=== PATIENT | female | born 1940 | race Caucasian/White ===

== ENCOUNTER 2018-01-24 08:17 | Emergency (ER) | payer MEDICARE ==
[2016-12-07 11:24] VITALS: Wt 118.0 kg
[~2018-01-24 08:17] MED LIST: ACE500 PO; ADV250/50 INH; ALB0.5 INH; ALL300 PO; ALLO-2 PO; ALP5 PO; AMI10 PO; ANUHC30T PR; ASP81 PO; ASPI-1121 PO; ATE50 PO; ATEN-1 PO; ATOR40TA69 PO; BONIVA; BUDE10.2 INH; CANA300T PO; CEF300 PO; CELE-1 PO; CELE50CA2 PO; CEPH250C37 PO; CEPH500C24 PO; CHOL100052 PO; CIP500 PO; CLON-331 PO; CRAN1000 PO; DAR75 PO; DIG25 PO; DIGO125T25 PO; DIGO125T73 PO; DIPH-740 PO; EZE10 PO; FENO67CA3 PO; FLUT1DIS28 IH; FLUT50DI3 IH; FUR20 PO; FUR40 PO; FURO-45 PO; GAB800PT PO; GABA-1 PO; GABA-503 PO; GLIM4TAB49 PO; GUALA600 PO; HUM100VI15 SQ; HUM100VI2 SUBQ; HYDR-393 PO; HYDR-4305 PO; HYDR-4309 PO; INSU100C14 SQ; INSU100I35 SQ; INSU100I8; INSULIN; IPRA3AMP36 IH; LANI SUBQ; LEV500 PO; LEVO88TA45 PO; LISI-362 PO; LISI2.5T60 PO; LISI5TAB25 PO; LOR5/325 PO; LORA-1456 PO; MAGN84TA5 PO; MET500 PO; METF-1 PO; METF-409 PO; METH4TAB57 PO; METO-222 PO; METO-231 PO; METO-257 PO; METO100T20 PO; METXR500 PO; MON10 PO; MONT10TA4 PO; MOX400 PO; MULT-820 PO; NYST15CR32 TP; OMEG500C5 PO; OMEP-137 PO; OMEP-218 PO; OSC600 PO; OXYC-865 PO; OXYC20TA86 PO; PAR20 PO; PARO20TA4 PO; PARO40TA88 PO; PER PO; PHENA200 PO; POTA2.5T7 PO; POTA20PA10 PO; POTA20TA85 PO; POTA20TA94 PO; PRE20 PO; PRED20TA6 PO; PRIM50TA PO; Prednisone PO; QUIN40TA24 PO; RIV10 PO; ROSI1TAB24 PO; SALSP; SIM10 PO; SIMV-42 PO; TIO18R INH; TRILI135PT PO; WAR25 PO; WAR5 PO; WARF-1 PO; ZOLP-1 PO; [UNRECOGNIZED DRUG - CODE] PO; [UNRECOGNIZED DRUG - CODE] TP; [UNRECOGNIZED DRUG - REMARK] PO
[2018-01-24] MEDS ORDERED: ENT KIT ONE (08:43)
--- NOTE | 2018-01-24 08:47 | ER Report ---
History and Physical Time Seen By MD: 08:40 Hx. of Stated Complaint: PT REPORTS A BLOODY NOSE SINCE 0300 THIS MORNING HPI/ROS CHIEF COMPLAINT: Nosebleed HISTORY OF PRESENT ILLNESS: Patient is a 78-year-old female with oxygen- dependent COPD. She presents with bleeding from the right naris. She denies any history of trauma. She does wear oxygen continuously. She denies any headaches or chest pain. She states he's having difficulty breathing out of her right naris and feels as something stuck there. Allergies: Coded Allergies: pentazocine (Verified Allergy, Mild, NAUSEA/VOMITING, 01/24/18) Uncoded Allergies: STRAW LOU (Allergy, Severe, RESP PROBLEMS, 01/11/08) TAPE (Allergy, Mild, BLISTERS, 12/05/07) Home Meds Active Scripts Budesonide/Formoterol Fumarate (SYMBICORT 160-4.5 MCG INHALER) 10.2 Gm Inh, 2 EACH INH BIDR for 30 Days, #1 INH 1 Refill Two puffs two times a day. Prov:BALWINDER DIAMOND MD 12/09/16 Prednisone (PREDNISONE) 20 Mg Tablet, 20 MG PO BIDBS, #7 TAB 0 Refills One tab twice a day for 2 days then one tab a day for two days then one-half tab a day for two days then off. Prov:BALWINDER DIAMOND MD 12/09/16 Reported Medications Insulin Degludec (Tresiba Flextouch U-100) 100 Unit/Ml (3 Ml) Insuln.pen 12/06/16 Clonazepam (CLONAZEPAM) 0.5 Mg Tablet, 0.5 MG PO DAILY, #6 TAB 12/06/16 Primidone (PRIMIDONE) 50 Mg Tab, 100 MG PO BID, TAB 12/06/16 Rivaroxaban (XARELTO 10 MG TAB (OR EQUIV)) 10 Mg Tablet, 20 MG PO QDAY, TAB 12/06/16 Lisinopril (LISINOPRIL) 10 Mg Tablet, 10 MG PO QDAY, TAB 12/06/16 Canagliflozin (INVOKANA) 300 Mg Tablet, 150 MG PO DAILY 12/06/16 Atenolol (ATENOLOL) 50 Mg Tablet, 1 TAB PO QDAY, TAB 12/06/16 Digoxin (DIGOXIN) 125 Mcg Tablet, 125 MCG PO DAILY 07/04/14 Omeprazole (OMEPRAZOLE) 20 Mg Tablet.dr, 20 MG PO QDAY TAKE ONE TABLET BY MOUTH ONCE A DAY 07/03/14 Furosemide (FUROSEMIDE) 20 Mg Tablet, 1 TAB PO DAILY, #30 07/02/14 Paroxetine Hcl (PAROXETINE HCL) 40 Mg Tablet, 1 TAB PO DAILY, #30 07/02/14 Allopurinol (Allopurinol) 300 Mg Tablet, 1 TAB PO DAILY, #90 07/02/14 Atorvastatin Calcium (ATORVASTATIN CALCIUM) 40 Mg Tablet, 1 TAB PO DAILY, #90 07/02/14 Levothyroxine Sodium (LEVOTHYROXINE SODIUM) 88 Mcg Tablet, 1 TAB PO DAILY, #90 07/02/14 Past Medical/Surgical History Past medical history for hypertension, dyslipidemia on Lipitor, type II diabetes, COPD and smoking. She has a history of atrial fibrillation and is on Xarelto Hx Smoking: Yes Smoking Status: Former Smoker Exposure to Second Hand Smoke?: No Hx Substance Use Disorder: No Hx Alcohol Use: No Constitutional Vital Sign - Last 24 Hours 01/24/18 08:20 Pulse 110 Resp 18 B/P (MAP) 154/91 Pulse Ox 88 O2 Delivery Nasal Cannula Physical Exam General Appearance: The patient is alert, has no immediate need for airway protection and no current signs of toxicity. Nares: Clotted right naris left nares appears normal Eyes: Pupils equal and round no injection. Respiratory: Chest is non tender, lungs are noted for bilateral rhonchi and wheezing throughout Cardiac: Irregularly irregular rate controlled[ ] Medical Decision Making ED Course/Re-evaluation ED Course 01/24/2018 9:00:11 am plan at this time will be attempted patient blow her nose we will place a Juan A-Synephrine soaked pledget in the naris have her hold direct pressure for 15 minutes if there is an area that we can cauterize we will use silver nitrate stick. 01/24/2018 9:17:42 am : Area of slow ooze the right naris was cauterized using silver nitrate stick. Estrace and was placed topically to the right naris. Bleeding seems controlled. Decision to Disposition Date: Jan 24, 2018 Decision to Disposition Time: 09:21 Depart Departure Latest Vital Signs Vital Signs Date Time Temp Pulse Resp B/P (MAP) Pulse Ox O2 Delivery O2 Flow Rate FiO2 01/24/18 08:20 110 18 154/91 88 Nasal Cannula Impression: Primary Impression: Epistaxis Condition: Improved Disposition: HOME OR SELF-CARE Referrals: JUAN C CARRANZA MD (PCP) Patient Instructions: Nosebleed (ED) Additional Instructions: Use topical Vaseline or bacitracin to both nares twice per day while wearing her oxygen to keep mucosa moist and decrease likelihood of bleeding. If bleeding returns hold direct pressure for 15 minutes if the bleeding still does not stop come back to the emergency department for reevaluation. SANTIAGO SEGURA MD Jan 24, 2018 08:47
[2018-01-24] MEDS ORDERED: PHENYLEPHRINE 0.5% 15 ML BTL ONE (09:15)
[2018-01-24] MEDS ORDERED: SILVER NITRATE SWABS 10 PKG TP ONE (09:15)
[2018-01-24 09:29] VITALS: BP 146/98
== END 2018-01-24 09:28 | disposition home or self-care (01) ==
LOC: ER 08:27
DX: R04.0 Epistaxis (principal); Z99.81 Dependence on supplemental oxygen
CPT/HCPCS: 30901; 99283; A9270

== ENCOUNTER 2018-08-16 08:53 | Inpatient (IN) | payer MEDICARE ==
[~2018-08-16] VITALS: Ht 152.4 cm; Wt 122.6 kg
[~2018-08-16 08:53] MED LIST changes: -GABA-503 PO; +GABA-533 PO; -HYDR-4305 PO; -HYDR-4309 PO; +HYDR-627 PO; +HYDR-653 PO
[2018-08-16] MEDS ORDERED: NS(*) 0.9% 1000 ML BAG 1,000 ML IV ONE ×2 (09:45→12:00)
[2018-08-16 10:01] LABS: PLATELET COUNT, AUTOMATED 254 K/uL (150-450)
--- NOTE | 2018-08-16 10:08 | ER Report ---
History and Physical Time Seen By MD: 09:25 Hx. of Stated Complaint: AMS. HPI/ROS CHIEF COMPLAINT: Altered mental status, abdominal pain HISTORY OF PRESENT ILLNESS: 78-year-old female brought into ED by for change in mental status. When questioning patient, she reports that she is here because she has abdominal pain for 2 days. Patient states the pain is constant, throughout her abdomen, unclear what changes it, feels like pressure, associated with multiple episodes of diarrhea. She is nauseous but has not vomited. She complains of frontal headache and occasional blurred vision. She admits to hearing voices though cannot tell what they say. She denies visual hallucinations. Per , she has had intermittent episodes in the past of change in mental status. The last was 3 months ago. She had a workup but it was unclear what was causing this. She now has had 2 d of confusion, urinary and stool incontinence, change in color/odor of urine, no bloody/black stool, screaming at night, unaware of where she is, per . No change in medications, no change in diet/appetite. No known fevers REVIEW OF SYSTEMS: Constitutional: No fever, no chills. Eyes: blurred vision; unclear duration. No diplopia ENT: No sore throat. Cardiovascular: No chest pain, no palpitations. Respiratory: No cough, no shortness of breath. Gastrointestinal: above Genitourinary: above Musculoskeletal: chronic back pain Skin: No rashes. Neurological: mild frontal zabala over unclear time period; pt denies this now Remainder of the 14 system rev: Yes Allergies: Coded Allergies: pentazocine (Verified Allergy, Mild, NAUSEA/VOMITING, 08/16/18) Uncoded Allergies: STRAW LOU (Allergy, Severe, RESP PROBLEMS, 01/11/08) TAPE (Allergy, Mild, BLISTERS, 12/05/07) Home Meds Active Scripts Budesonide/Formoterol Fumarate (SYMBICORT 160-4.5 MCG INHALER) 10.2 Gm Inh, 2 EACH INH BIDR for 30 Days, #1 INH 1 Refill Two puffs two times a day. Prov:BALWINDER DIAMOND MD 12/09/16 Prednisone (PREDNISONE) 20 Mg Tablet, 20 MG PO BIDBS, #7 TAB 0 Refills One tab twice a day for 2 days then one tab a day for two days then one-half tab a day for two days then off. Prov:BALWINDER DIAMOND MD 12/09/16 Reported Medications Rivaroxaban 20 Mg (XARELTO 20 MG) 20 Mg Tablet 08/16/18 Fenofibrate,Micronized (FENOFIBRATE) 67 Mg Capsule 08/16/18 Gabapentin (GABAPENTIN) 600 Mg Tablet 08/16/18 Metoprolol Succinate (METOPROLOL SUCCINATE) 100 Mg Tab.er.24h 08/16/18 Insulin Glargine,Hum.rec.anlog (Toujeo Solostar) 300 Unit/1 Ml Insuln.pen 08/16/18 Insulin Degludec (Tresiba Flextouch U-100) 100 Unit/Ml (3 Ml) Insuln.pen 12/06/16 Clonazepam (CLONAZEPAM) 0.5 Mg Tablet, 0.5 MG PO DAILY, #6 TAB 12/06/16 Primidone (PRIMIDONE) 50 Mg Tab, 100 MG PO BID, TAB 12/06/16 Rivaroxaban (XARELTO 10 MG TAB (OR EQUIV)) 10 Mg Tablet, 20 MG PO QDAY, TAB 12/06/16 Lisinopril (LISINOPRIL) 10 Mg Tablet, 10 MG PO QDAY, TAB 12/06/16 Canagliflozin (INVOKANA) 300 Mg Tablet, 150 MG PO DAILY 12/06/16 Atenolol (ATENOLOL) 50 Mg Tablet, 1 TAB PO QDAY, TAB 12/06/16 Digoxin (DIGOXIN) 125 Mcg Tablet, 125 MCG PO DAILY 07/04/14 Omeprazole (OMEPRAZOLE) 20 Mg Tablet.dr, 20 MG PO QDAY TAKE ONE TABLET BY MOUTH ONCE A DAY 07/03/14 Furosemide (FUROSEMIDE) 20 Mg Tablet, 1 TAB PO DAILY, #30 07/02/14 Paroxetine Hcl (PAROXETINE HCL) 40 Mg Tablet, 1 TAB PO DAILY, #30 07/02/14 Allopurinol (Allopurinol) 300 Mg Tablet, 1 TAB PO DAILY, #90 07/02/14 Atorvastatin Calcium (ATORVASTATIN CALCIUM) 40 Mg Tablet, 1 TAB PO DAILY, #90 07/02/14 Levothyroxine Sodium (LEVOTHYROXINE SODIUM) 88 Mcg Tablet, 1 TAB PO DAILY, #90 07/02/14 Reviewed Nurses Notes: Yes Old Medical Records Reviewed: Yes Hx Smoking: Yes Smoking Status: Former Smoker Exposure to Second Hand Smoke?: No Hx Substance Use Disorder: No Hx Alcohol Use: No Constitutional Vital Sign - Last 24 Hours 08/16/18 08/16/18 08/16/18 08/16/18 09:00 09:00 10:00 10:15 Temp 97.9 Pulse 129 ??? 116 Resp 22 26 B/P (MAP) 141/96 ???/??? (1665) Pulse Ox 91 94 O2 Delivery Nasal Cannula O2 Flow Rate 3.0 08/16/18 08/16/18 08/16/18 08/16/18 10:30 10:33 10:45 11:00 Pulse 117 119 ??? Resp 21 99 17 B/P (MAP) 144/86 (105) ???/??? (1665) Pulse Ox 95 93 77 08/16/18 08/16/18 08/16/18 08/16/18 11:15 11:30 11:45 12:00 Pulse 111 115 135 108 Resp 17 31 40 22 B/P (MAP) ???/??? (1665) 08/16/18 08/16/18 08/16/18 08/16/18 12:15 12:30 12:45 13:00 Pulse 109 112 94 121 Resp 20 35 24 22 B/P (MAP) ???/??? (1665) 08/16/18 08/16/18 08/16/18 08/16/18 13:15 13:30 13:45 14:35 Pulse 114 96 103 95 Resp 12 11 18 13 08/16/18 08/16/18 08/16/18 08/16/18 14:50 15:05 15:20 15:35 Pulse 105 88 108 108 Resp 23 14 21 16 Physical Exam General Appearance: The patient is alert, has no immediate need for airway protection and no signs of toxicity. Eyes: Pupils equal and round no pallor or injection. ENT, Mouth: Mucous membranes are slightly dry Respiratory: There are no retractions, lungs are clear to auscultation. Cardiovascular: tachycardia, irreg rhythm Gastrointestinal: abdomen is tender throughout, decreased bowel sounds, no clear masses, no peritoneal sgs Neurological: awake, interactive, oriented to person/place, no facial droop, 5/5 ms all ext except r foot with 4/5 plantar flexion and medial deviation that states is complication of prior surgery Skin: Warm and dry, no rashes. Musculoskeletal: Neck is supple non tender. Pt does have thoracic ttp that is paraspinal and central, no massess or stepoff Extremities are nontender, nonswollen and have full range of motion. DIFFERENTIAL DIAGNOSIS: After history and physical exam differential diagnosis was considered for altered mental status including but not limited to hypoglycemia, infectious process, electrolyte abnormality, head injury and intoxicants. Sepsis, normal pressure hydrocephalus, delirium, encephalopathy other emergent etiology Medical Decision Making Data Points Result Diagram: 08/16/18 0914 08/17/18 0532 Laboratory Hematology Test 08/16/18 09:14 08/16/18 13:03 08/16/18 13:38 Red Blood Count 4.78 M/uL (4.17-5.56) Mean Corpuscular Volume 91.2 fL (80.0-96.0) Mean Corpuscular Hemoglobin 29.7 pg (26.0-33.0) Mean Corpuscular Hemoglobin Concent 32.6 g/dL (32.0-36.0) Red Cell Distribution Width 15.0 % (11.5-14.5) Mean Platelet Volume 8.5 fL (7.2-11.1) Neutrophils (%) (Auto) 81.7 % (39.4-72.5) Lymphocytes (%) (Auto) 9.3 % (17.6-49.6) Monocytes (%) (Auto) 7.9 % (4.1-12.4) Eosinophils (%) (Auto) 0.4 % (0.4-6.7) Basophils (%) (Auto) 0.7 % (0.3-1.4) Nucleated RBC Relative Count (auto) 0.2 /100WBC Neutrophils # (Auto) 7.4 K/uL (2.0-7.4) Lymphocytes # (Auto) 0.8 K/uL (1.3-3.6) Monocytes # (Auto) 0.7 K/uL (0.3-1.0) Eosinophils # (Auto) 0.0 K/uL (0.0-0.5) Basophils # (Auto) 0.1 K/uL (0.0-0.1) Nucleated RBC Absolute Count (auto) 0.02 K/uL Prothrombin Time 14.3 seconds (12.0-14.4) Prothromb Time International Ratio 1.11 Activated Partial Thromboplast Time 28 seconds (23-35) Lactate 1.7 mmol/L (0.7-2.1) Total Bilirubin 1.8 mg/dl (0.2-1.3) Aspartate Amino Transf (AST/SGOT) 38 U/L (0-35) Alanine Aminotransferase (ALT/SGPT) 27 U/L (0-56) Alkaline Phosphatase 73 U/L (0-126) Troponin I < 0.012 ng/ml Total Protein 7.3 g/dl (6.3-8.2) Albumin 4.1 g/dl (3.5-5.0) Lipase 41 U/L (23-300) Urine Color Yellow Urine Clarity Cloudy Urine pH 6.0 pH (4.8-9.5) Urine Specific [place] 1.020 Urine Protein 100 mg/dL (NEGATIVE) Urine Glucose (UA) Negative mg/dL (NEGATIVE) Urine Ketones Negative mg/dL (NEGATIVE) Urine Blood Small (NEGATIVE) Urine Nitrite Negative (NEGATIVE) Urine Bilirubin Negative (NEGATIVE) Urine Urobilinogen 0.2 mg/dL (0.2-1.9) Urine Leukocyte Esterase Negative (NEGATIVE) Urine RBC 1-3 /HPF (0-2/HPF) Urine WBC 2-5 /HPF (0-5/HPF) Urine Squamous Epithelial Cells Many /LPF (</=FEW) Urine Transitional Epithelial Cells Rare /LPF (NONE-FEW) Urine Renal Epithelial Cells Rare /LPF (NONE-FEW) Urine Bacteria Rare /HPF (NONE-FEW) Urine Hyaline Casts Few /LPF (NONE-FEW) Urine Granular Casts Few /LPF (NONE) Urine White Blood Cell Casts Few /LPF (NONE) Urine Mucus Rare /HPF (NONE-FEW) Digoxin Level < 0.4 ng/ml Digoxin Last Dose Date unk Digoxin Last Dose Time unk Chemistry Test 08/16/18 09:14 08/16/18 13:03 08/16/18 13:38 White Blood Count 9.0 k/uL (4.5-11.0) Red Blood Count 4.78 M/uL (4.17-5.56) Hemoglobin 14.2 g/dL (12.0-16.0) Hematocrit 43.6 % (34.0-47.0) Mean Corpuscular Volume 91.2 fL (80.0-96.0) Mean Corpuscular Hemoglobin 29.7 pg (26.0-33.0) Mean Corpuscular Hemoglobin Concent 32.6 g/dL (32.0-36.0) Red Cell Distribution Width 15.0 % (11.5-14.5) Platelet Count 254 K/uL (150-450) Mean Platelet Volume 8.5 fL (7.2-11.1) Neutrophils (%) (Auto) 81.7 % (39.4-72.5) Lymphocytes (%) (Auto) 9.3 % (17.6-49.6) Monocytes (%) (Auto) 7.9 % (4.1-12.4) Eosinophils (%) (Auto) 0.4 % (0.4-6.7) Basophils (%) (Auto) 0.7 % (0.3-1.4) Nucleated RBC Relative Count (auto) 0.2 /100WBC Neutrophils # (Auto) 7.4 K/uL (2.0-7.4) Lymphocytes # (Auto) 0.8 K/uL (1.3-3.6) Monocytes # (Auto) 0.7 K/uL (0.3-1.0) Eosinophils # (Auto) 0.0 K/uL (0.0-0.5) Basophils # (Auto) 0.1 K/uL (0.0-0.1) Nucleated RBC Absolute Count (auto) 0.02 K/uL Prothrombin Time 14.3 seconds (12.0-14.4) Prothromb Time International Ratio 1.11 Activated Partial Thromboplast Time 28 seconds (23-35) Lactate 1.7 mmol/L (0.7-2.1) Total Bilirubin 1.8 mg/dl (0.2-1.3) Aspartate Amino Transf (AST/SGOT) 38 U/L (0-35) Alanine Aminotransferase (ALT/SGPT) 27 U/L (0-56) Alkaline Phosphatase 73 U/L (0-126) Troponin I < 0.012 ng/ml Total Protein 7.3 g/dl (6.3-8.2) Albumin 4.1 g/dl (3.5-5.0) Lipase 41 U/L (23-300) Urine Color Yellow Urine Clarity Cloudy Urine pH 6.0 pH (4.8-9.5) Urine Specific [place] 1.020 Urine Protein 100 mg/dL (NEGATIVE) Urine Glucose (UA) Negative mg/dL (NEGATIVE) Urine Ketones Negative mg/dL (NEGATIVE) Urine Blood Small (NEGATIVE) Urine Nitrite Negative (NEGATIVE) Urine Bilirubin Negative (NEGATIVE) Urine Urobilinogen 0.2 mg/dL (0.2-1.9) Urine Leukocyte Esterase Negative (NEGATIVE) Urine RBC 1-3 /HPF (0-2/HPF) Urine WBC 2-5 /HPF (0-5/HPF) Urine Squamous Epithelial Cells Many /LPF (</=FEW) Urine Transitional Epithelial Cells Rare /LPF (NONE-FEW) Urine Renal Epithelial Cells Rare /LPF (NONE-FEW) Urine Bacteria Rare /HPF (NONE-FEW) Urine Hyaline Casts Few /LPF (NONE-FEW) Urine Granular Casts Few /LPF (NONE) Urine White Blood Cell Casts Few /LPF (NONE) Urine Mucus Rare /HPF (NONE-FEW) Digoxin Level < 0.4 ng/ml Digoxin Last Dose Date unk Digoxin Last Dose Time unk Coagulation Test 08/16/18 09:14 Prothrombin Time 14.3 seconds Prothromb Time International Ratio 1.11 Activated Partial Thromboplast Time 28 seconds Toxicology Test 08/16/18 13:38 Digoxin Level < 0.4 ng/ml Digoxin Last Dose Date unk Digoxin Last Dose Time unk Urinalysis Test 08/16/18 13:03 Urine Color Yellow Urine Clarity Cloudy Urine pH 6.0 pH (4.8-9.5) Urine Specific [place] 1.020 Urine Protein 100 mg/dL (NEGATIVE) Urine Glucose (UA) Negative mg/dL (NEGATIVE) Urine Ketones Negative mg/dL (NEGATIVE) Urine Blood Small (NEGATIVE) Urine Nitrite Negative (NEGATIVE) Urine Bilirubin Negative (NEGATIVE) Urine Urobilinogen 0.2 mg/dL (0.2-1.9) Urine Leukocyte Esterase Negative (NEGATIVE) Urine RBC 1-3 /HPF (0-2/HPF) Urine WBC 2-5 /HPF (0-5/HPF) Urine Squamous Epithelial Cells Many /LPF (</=FEW) Urine Transitional Epithelial Cells Rare /LPF (NONE-FEW) Urine Renal Epithelial Cells Rare /LPF (NONE-FEW) Urine Bacteria Rare /HPF (NONE-FEW) Urine Hyaline Casts Few /LPF (NONE-FEW) Urine Granular Casts Few /LPF (NONE) Urine White Blood Cell Casts Few /LPF (NONE) Urine Mucus Rare /HPF (NONE-FEW) EKG/Imaging EKG Interpretation 12 lead EKG: Rhythm: atrial fibrillation [place]: normal QRS: normal ST segments: st depresion throughout afib with RVR Monitor Interpretation: Atrial Fibrillation ED Course/Re-evaluation ED Course 78-year-old female presents with complaint of abdominal pain and according to , with altered mental status recently. Given A. fib and somewhat vague abdominal pain, I considered mesenteric ischemia or other emergent etiology. Will obtain electrolytes and lactate to evaluate for mesenteric ischemia as well as urine to rule out UTI. ED evaluation unremarkable for acute findings; no sgs ich, apparent infection. No fever. Pt reportedly allergic to contrast so unenhanced abd ct ordered and unremarkable. Unclear etiolgoy but pt with continued delerium in ED. I discussed inpt mri and further evaluation. Afebrile, without infectious symptoms so considered but low likelihood of infectious encephalitis. Decision to Disposition Date: Aug 16, 2018 Decision to Disposition Time: 11:30 Depart Departure Latest Vital Signs Vital Signs Date Time Temp Pulse Resp B/P (MAP) Pulse Ox O2 Delivery O2 Flow Rate FiO2 08/16/18 15:35 108 16 08/16/18 12:30 ???/??? (1665) 08/16/18 11:00 77 08/16/18 09:00 97.9 Nasal Cannula 08/16/18 09:00 3.0 Impression: Primary Impression: Acute delirium Condition: Stable Disposition: Admitted from ER Referrals: JUAN C CARRANZA MD (PCP) SANTIAGO COBB MD Aug 16, 2018 10:08
[2018-08-16 10:14] LABS: INR 1.11
[2018-08-16] MEDS ORDERED: MAGNESIUM SUL* 2 GM/50 ML IVPB 50 ML IVPB ONE ×2 (10:35→19:25)
--- NOTE | 2018-08-16 10:50 | RADIOLOGY IMAGING REPORT ---
FACILITY: [facility] PATIENT NAME: Flower Burk : 1940 MR: [id number] V: [id number] EXAM DATE: ORDERING PHYSICIAN: SANTIAGO COBB [place]CHN[place] [facility] [place] : 1940 Visit/Account:[id number] Date of Sevice: 08/16/2018 CHEST SINGLE AP HISTORY: Altered mental status. Tachypnea. COMPARISON: Chest x-ray December 06, 2016. FINDINGS: Cardiomediastinal contours: The heart is enlarged. Lungs and pleura: There is no finding of an infiltrate, lymphadenopathy or pleural effusion. There is chronic engorgement of the pulmonary vessels. Bones/soft tissues: Status post anterior cervical fusion. Status post ORIF of a left humeral shaft fr acture. IMPRESSION: 1. Cardiomegaly with chronic engorgement of the pulmonary vessels but no infiltrate or edema. 2. Postoperative changes as described above. Report Dictated By: Kee Torres MD at 08/16/2018 10:45 AM Report E-Signed By: Kee Torres MD at 08/16/2018 10:46 AM WSN:[id number]
--- NOTE | 2018-08-16 10:52 | RADIOLOGY IMAGING REPORT ---
FACILITY: [facility] PATIENT NAME: Flower Burk : 1940 MR: [id number] V: [id number] EXAM DATE: ORDERING PHYSICIAN: SANTIAGO COBB TECHNOLOGIST: Location: [facility] Patient: Flower Burk : 1940 Visit/Account:[id number] Date of Sevice: 08/16/2018 EXAMINATION: CT Head Without Contrast 08/16/2018 9:45 AM HISTORY: altered mental status TECHNIQUE: Contiguous axial images were obtained from the skull base to the vertex without intraven ous contrast. One of the following dose optimization techniques was utilized in the performance of this exam: Autom ated exposure control; adjustment of the mA and/or kV according to the patient's size; or use of an i terative reconstruction technique. Specific details can be referenced in the facility's radiology C T exam operational policy. COMPARISON STUDIES: 03/05/2017 FINDINGS: Ventricles / sulci / fissures: Enlarged but within normal limits for age. Masses / hemorrhage / midline shift: negative White matter: Moderate number of white matter lucencies, non-specific and age appropriate. Chung-white differentiation: negative Extra-axial spaces: negative Dural venous sinuses / arterial structures: Intracranial atherosclerosis. Skull base / calvarium: Incidental hyperostosis frontalis interna. Previous bilateral cataract surger y. Visualized mastoid air cells / paranasal sinuses: Rightward deviation of the nasal septum. IMPRESSION: Unremarkable head CT for age. No evidence of mass, acute ischemia or hemorrhage. Report Dictated By: Alex Tipton MD at 08/16/2018 10:45 AM Report E-Signed By: Alex Tipton MD at 08/16/2018 10:49 AM WSN:[id number]
--- NOTE | 2018-08-16 11:52 | EKG ---
FACILITY: [facility] PATIENT NAME: CIELO OLIVA : [id number] MR: [id number] V: [id number] EXAM DATE: ORDERING PHYSICIAN: SANTIAGO COBB TECHNOLOGIST: RICARDO Test Reason : STOMACH PAIN Blood Pressure : / mmHG Vent. Rate : 123 BPM Atrial Rate : 127 BPM P-R Int : 000 ms QRS Dur : 076 ms QT Int : 344 ms P-R-T Axes : 000 053 012 degrees QTc Int : 492 ms Atrial fibrillation Nonspecific ST abnormality Abnormal ECG When compared with ECG of 06-DEC-2016 14:59, Vent. rate has increased BY 49 BPM Confirmed by Mj Castro ([id number]) on 08/17/2018 12:19:59 AM Referred By: REZA Confirmed By:Mj Barfield
[2018-08-16] MEDS ORDERED: IOPAMIDOL 76% 100 ML INFUS BTL 0 ML ONE (13:23)
--- NOTE | 2018-08-16 14:54 | RADIOLOGY IMAGING REPORT ---
FACILITY: [facility] [place] PATIENT NAME: Flower Burk : 1940 MR: [id number] V: [id number] EXAM DATE: ORDERING PHYSICIAN: SANTIAGO COBB TECHNOLOGIST: Location: [facility] Patient: Flower Burk : 1940 Visit/Account:[id number] Date of Sevice: 08/16/2018 CT abdomen and pelvis without contrast Indication: Abdominal pain. Comparison: 03/21/2015. Technique: Axial CT images are obtained through the abdomen and pelvis. Reformatted coronal and sagit luis m images were reviewed. IV contrast was not administered. One of the following dose optimization techniques was utilized in the performance of this exam: auto mated exposure control; adjustment of the mA and/or kV according to the patient's size; or use of an iterative reconstruction technique. Specific details can be referenced in the facility's radiology C T exam operational policy. Findings: Lower lung morrow: Limited views lower lung field are unremarkable. Evaluation of the solid organs of the abdomen is limited without IV contrast. Liver: No focal parenchymal abnormality of the liver. Biliary: Status post cholecystectomy. Biliary system is unremarkable. Pancreas: No focal abnormality. Spleen: Normal appearance. Adrenal glands: Right adrenal gland is normal. The left adrenal glands are not well visualized. The re are some surgical clips in this region unsure if this is due to resection. Medial aspect of the s pleen does show a 1.3 cm nodule measuring may represent a small splenule. Kidneys / retroperitoneum: No evidence of nephrolithiasis or hydronephrosis. The left kidney does sh ow a 3.5 cm cyst. The superior aspect of the right kidney does show a 2.9 cm cyst with peripheral be nign calcification. No other discrete focal lesions. Bowel / peritoneum / mesenteries: Diverticula seen along the sigmoid and descending colon without per icolonic inflammation. The colon shows no other focal abnormality is mainly decompressed. The appen ozzie not visualized. The small bowel shows no focal normality or obstruction. The second portion duo denum does show again show a 1.6 cm diverticulum without sequelae. The stomach is decompressed and g rossly normal. No free air, free fluid, fluid collections or areas of inflammation. Lymph node assessment: No pathologic adenopathy identified. Pelvic structures: The uterus is not visualized may been surgically removed. The remaining pelvic structures visualized within normal limits. Vessels: Mild atherosclerotic calcifications seen throughout a nonaneurysmal abdominal aorta and bran ches. Musculoskeletal / Body wall: No acute or aggressive osseous abnormality. Degenerative changes of the spine. Postsurgical changes from the L3-L5 levels without acute sequelae. There is anterior spondy lolisthesis of L4 over L5 of 7 mm. The anterior abdominal wall in the subcutis tissues do show a soft tissue density measuring 4.8 x 2.3 cm with a linear extension to the skin surface. No discrete fluid collections or spiculations. The previous images were unable to be visualized. Unsure if this is chronic however does show more motor setter kelechi appearance. IMPRESSION: 1. No acute intra-abdominal abnormality identified. 2. Diverticulosis without radiographic indication diverticulitis. 3. Along the anterior abdominal subcutaneous fat, along the anterior abdominal wall there is a soft tissue density with extension linear two the substance tissues and skin. This is likely a residual s car or complex seroma from previous intervention. No discrete fluid collection or abscess. This aguirre s have a more chronic appearance however the age is not determined. The previous images were unable to be visualized for comparison. 4. Other chronic findings as above. Report Dictated By: Zaheer Sharma at 08/16/2018 2:34 PM Report E-Signed By: Zaheer Sharma at 08/16/2018 2:51 PM WSN:[email or web address]
[2018-08-16 17:09] VITALS: BP 168/100
[2018-08-16] MEDS ORDERED: KCL/NS* 20 MEQ/1000 ML PREMIX 1,000 ML IV SCH (19:25)
[2018-08-16 19:30] VITALS: BP 132/93
[2018-08-16] MEDS ORDERED: FLUSH 10 ML SYR IVP PRN (19:35)
[2018-08-16] MEDS ORDERED: ACETAMINOPHEN 325 MG TAB PO PRN (19:35)
[2018-08-16] MEDS ORDERED: RIVA20TA (19:40)
[2018-08-16] MEDS ORDERED: GABA-533 (19:40)
[2018-08-16] MEDS ORDERED: FENO67CA3 (19:40)
[2018-08-16] MEDS ORDERED: INSU300I (19:40)
[2018-08-16] MEDS ORDERED: METO100T20 (19:40)
[2018-08-16] MEDS: METOPROLOL TART 5 MG/5 ML VIAL IVP PRN ×2 (19:54→22:01)
[2018-08-16 21:48] VITALS: BP 160/108
[2018-08-16] MEDS: MELATONIN 3 MG TAB PO SCH (22:22)
--- NOTE | 2018-08-16 22:52 | History & Physical ---
History of Present Illness Chief Complaint AMS History of Present Illness 78F presented with AMS. PMHx significant for DM, HTN, afib. Reportedly had 2 days increased confusion, urinary and fecal incontinence, screaming at night, unaware of location. reports previous episodes of change in mental status with no identified cause. Denied any medication changes. Patient reported abdominal pain and diarrhea but is otherwise without complaint. History Unable To Obtain Past Medical: Unable to Obtain/Update Home Meds Active Scripts Budesonide/Formoterol Fumarate (SYMBICORT 160-4.5 MCG INHALER) 10.2 Gm Inh, 2 EACH INH BIDR for 30 Days, #1 INH 1 Refill Two puffs two times a day. Prov:BALWINDER DIAMOND MD 12/09/16 Prednisone (PREDNISONE) 20 Mg Tablet, 20 MG PO BIDBS, #7 TAB 0 Refills One tab twice a day for 2 days then one tab a day for two days then one-half tab a day for two days then off. Prov:BALWINDER DIAMOND MD 12/09/16 Reported Medications Rivaroxaban 20 Mg (XARELTO 20 MG) 20 Mg Tablet 08/16/18 Fenofibrate,Micronized (FENOFIBRATE) 67 Mg Capsule 08/16/18 Gabapentin (GABAPENTIN) 600 Mg Tablet 08/16/18 Metoprolol Succinate (METOPROLOL SUCCINATE) 100 Mg Tab.er.24h 08/16/18 Insulin Glargine,Hum.rec.anlog (Nichole Solbambi) 300 Unit/1 Ml Insuln.pen 08/16/18 Insulin Degludec (Tresiba Flextouch U-100) 100 Unit/Ml (3 Ml) Insuln.pen 12/06/16 Clonazepam (CLONAZEPAM) 0.5 Mg Tablet, 0.5 MG PO DAILY, #6 TAB 12/06/16 Primidone (PRIMIDONE) 50 Mg Tab, 100 MG PO BID, TAB 12/06/16 Rivaroxaban (XARELTO 10 MG TAB (OR EQUIV)) 10 Mg Tablet, 20 MG PO QDAY, TAB 12/06/16 Lisinopril (LISINOPRIL) 10 Mg Tablet, 10 MG PO QDAY, TAB 12/06/16 Canagliflozin (INVOKANA) 300 Mg Tablet, 150 MG PO DAILY 12/06/16 Atenolol (ATENOLOL) 50 Mg Tablet, 1 TAB PO QDAY, TAB 12/06/16 Digoxin (DIGOXIN) 125 Mcg Tablet, 125 MCG PO DAILY 07/04/14 Omeprazole (OMEPRAZOLE) 20 Mg Tablet.dr, 20 MG PO QDAY TAKE ONE TABLET BY MOUTH ONCE A DAY 07/03/14 Furosemide (FUROSEMIDE) 20 Mg Tablet, 1 TAB PO DAILY, #30 07/02/14 Paroxetine Hcl (PAROXETINE HCL) 40 Mg Tablet, 1 TAB PO DAILY, #30 07/02/14 Allopurinol (Allopurinol) 300 Mg Tablet, 1 TAB PO DAILY, #90 07/02/14 Atorvastatin Calcium (ATORVASTATIN CALCIUM) 40 Mg Tablet, 1 TAB PO DAILY, #90 07/02/14 Levothyroxine Sodium (LEVOTHYROXINE SODIUM) 88 Mcg Tablet, 1 TAB PO DAILY, #90 07/02/14 Allergies: Coded Allergies: pentazocine (Verified Allergy, Mild, NAUSEA/VOMITING, 08/16/18) Uncoded Allergies: STRAW LOU (Allergy, Severe, RESP PROBLEMS, 01/11/08) TAPE (Allergy, Mild, BLISTERS, 12/05/07) 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, BROTHER OR SISTER, FH: hepatic cirrhosis Hx Smoking: Yes Smoking Status: Former Smoker Exposure to Second Hand Smoke?: No Caffeine Intake: Soda Caffeine/Cups Per Day: 1/day Hx Alcohol Use: No Hx Substance Use Disorder: No Social Drug Use: Never Review of Systems Gastrointestinal: Diarrhea Exam Vital Signs Vital Signs Date Time Temp Pulse Resp B/P (MAP) Pulse Ox O2 Delivery O2 Flow Rate FiO2 08/16/18 21:48 98.5 107 22 160/108 (125) 90 Nasal Cannula 4.0 General Appearance: No Acute Distress, Afebrile Neuro: No Gross deficits ENT: Normal Cardiovascular: Other (irregularly irregular) Respiratory: No Respiratory Distress GI: Abd Soft and Non-Tender Extremities: Soft and Non Tender, Warm, Pulses, Perfused Medical Decision Making Data Points Result Diagram: 08/16/1891308/16/182137 Assessment and Plan Problems: (1) Encephalopathy Assessment & Plan: Unclear etiology, labs do not demonstrate cause. CT head negative for acute pathology. Consider MRI if AMS persists. Will obtain up to date medication list to evaluate for possible offending medications. (2) Diabetes mellitus Status: Chronic Assessment & Plan: Possibly on insulin and other medications. Glucose did decrease and required intervention to increase to safe level. Suspect she took medications but did not eat due to AMS. (3) Atrial fibrillation Status: Chronic Assessment & Plan: No current medication list, she did have elevated heart rate. Suspect she is on medication but with AMS did not take medication for rate control. (4) Hypothyroid Status: Chronic Assessment & Plan: Will need updated medication list when able to acquire. Venous Thromboembolism Antithrombotics Is Pt On Any Antithrombotics?: Yes Exam Sepsis Risk: No Definite Risk DEL CASTILLO OMID ERAZO DO Aug 16, 2018 22:52
[2018-08-16 23:08] VITALS: BP 124/90
[2018-08-16] MEDS ORDERED: KCL/D1/2NS 20 MEQ 1000 ML 1,000 ML IV PRN (23:50)
[2018-08-17 02:49] VITALS: BP 162/100
[2018-08-17 07:30] VITALS: BP 159/98
[2018-08-17] MEDS ORDERED: ENOXAPARIN 40 MG/0.4ML SYR SC SCH (09:00)
[2018-08-17] MEDS ORDERED: KCL/D1/2NS 20 MEQ 1000 ML 1,000 ML IV PRN (09:43)
[2018-08-17 10:06] VITALS: Ht 152.4 cm; Wt 122.6 kg
[2018-08-17 11:53] VITALS: BP 170/111
[2018-08-17 12:08] VITALS: BP 152/98
--- NOTE | 2018-08-17 13:06 | Hospitalist Progress Note ---
Subjective Progress Notes Subjective She is awake and alert. She does report some possible visual hallucinations - "bugs up on the ceiling". Physical Exam Vital Signs Date Time Temp Pulse Resp B/P (MAP) Pulse Ox O2 Delivery O2 Flow Rate FiO2 08/17/18 12:08 98 152/98 (116) 08/17/18 11:53 98.2 18 94 High-Flow Nasal Cannula 4.0 Intake and Output 08/17/18 07:00 Intake Total 3810 ml Balance 3810 ml Intake Oral 860 ml IV Total 2950 ml # Voids 2 # Bowel Movements 3 General Appearance: Alert, Awake Neuro: No Gross deficits Eyes: PERRLA ENT: Oropharynx Clear, Other (Poor dentition with only a few remaining teeth in very poor repair) Cardiovascular: Other (Irregular distant tones) Respiratory: Clear to Auscultation GI: Soft and Non-Tender (obese) Extremities: Warm, Perfused Psych: Other (She is oriented to person, place and partially to time.) Result Diagram: 08/16/18 0914 08/17/18 0532 Monitor Interpretation: Atrial Fibrillation Assessment and Plan Problems: (1) Encephalopathy Status: Acute Assessment & Plan: Probable opioid medication related. Labs unremarkable. CT head negative for acute pathology. Consider MRI if any problems persist. She did receive prescription for Lortab 10325 #150 tabs shortly before symptoms started. She has improved significantly since admission. (2) Diabetes mellitus Status: Chronic Assessment & Plan: She has been managed on insulin and Invokana. She has had some hypoglycemia, which may have been part of the acute mental status changes. Will monitor glucoses and use SSI if needed. (3) Atrial fibrillation Status: Chronic Assessment & Plan: She is on atenolol and digoxin for rate control and Xarelto for CVA prophylaxis. Will continue with same for now. (4) Hypothyroid Status: Chronic Assessment & Plan: Continue replacement therapy with L-thyroxine 88mcg daily. Exam Sepsis Risk: No Definite Risk BALWINDER DIAMOND MD Aug 17, 2018 13:06
[2018-08-17] MEDS ORDERED: METOPROLOL SUCC XL 50 MG TABCR 50 MG TAB.ER.24H PO ONE (13:10)
[2018-08-17] MEDS ORDERED: ATENOLOL 50 MG TAB PO ONE (13:10)
[2018-08-17] MEDS ORDERED: INSULIN HUM LISPRO 100 UN/ML 3 ML VIAL SUBQ PRN (13:15)
[2018-08-17 14:57] VITALS: BP 150/95
[2018-08-17] MEDS: GABAPENTIN 300 MG CAP PO SCH ×2 (15:01→20:33)
[2018-08-17 19:17] VITALS: BP 148/89
[2018-08-17] MEDS: MELATONIN 3 MG TAB PO SCH (20:33)
[2018-08-17] MEDS ORDERED: ATORVASTATIN 40 MG TAB PO SCH (21:00)
[2018-08-18 00:30] VITALS: BP 122/81
[2018-08-18 04:52] VITALS: BP 125/75
[2018-08-18] MEDS ORDERED: LEVOTHYROXINE SOD 0.088 MG TAB PO SCH (06:00)
[2018-08-18 06:21] LABS: PLATELET COUNT, AUTOMATED 197 K/uL (150-450)
[2018-08-18 07:19] VITALS: BP 147/90
[2018-08-18] MEDS ORDERED: RIVAROXABAN 10 MG TAB PO SCH (09:00)
[2018-08-18] MEDS ORDERED: ATENOLOL 50 MG TAB PO SCH (09:00)
[2018-08-18] MEDS ORDERED: METOPROLOL SUCC XL 50 MG TABCR 50 MG TAB.ER.24H PO SCH (09:00)
[2018-08-18] MEDS ORDERED: DIGOXIN 0.125 MG TAB PO SCH (09:00)
[2018-08-18] MEDS: GABAPENTIN 300 MG CAP PO SCH ×2 (10:27→14:00)
--- NOTE | 2018-08-18 13:15 | Hospitalist Depart ---
Discharge Summary Reason for Hosp/Final Diag: (1) Encephalopathy Status: Acute Hospital Course & Plan: Probable opioid medication related. Labs unremarkable. CT head negative for acute pathology. She did receive prescription for Lortab #150 tabs shortly before symptoms started. She has improved significantly since admission. Recommend weaning of opioid. She did have some confusion overnight likely due to delirium, resolved and at baseline. (2) Diabetes mellitus Status: Chronic Hospital Course & Plan: She has been managed on insulin and Invokana. She has had some hypoglycemia, which may have been part of the acute mental status changes. Invokana stopped and only basal insulin recommended until follow up with PCP. (3) Atrial fibrillation Status: Chronic Hospital Course & Plan: She is on metoprolol and digoxin for rate control and Xarelto for CVA prophylaxis. (4) Hypothyroid Status: Chronic Hospital Course & Plan: Continue replacement therapy with L-thyroxine 88mcg daily. Departure Weight (Pounds): 270 Weight (Ounces): 4.0 Result Diagram: 08/18/1853 08/18/18552 Condition: Improved Discharge Instructions Home Meds Active Scripts Budesonide/Formoterol Fumarate (SYMBICORT 160-4.5 MCG INHALER) 10.2 Gm Inh, 2 EACH INH BIDR for 30 Days, #1 INH 1 Refill Two puffs two times a day. Prov:BALWINDER DIAMOND MD 12/09/16 Reported Medications Rivaroxaban 20 Mg (XARELTO 20 MG) 20 Mg Tablet 08/16/18 Fenofibrate,Micronized (FENOFIBRATE) 67 Mg Capsule 08/16/18 Gabapentin (GABAPENTIN) 600 Mg Tablet 08/16/18 Metoprolol Succinate (METOPROLOL SUCCINATE) 100 Mg Tab.er.24h 08/16/18 Insulin Degludec (Tresiba Flextouch U-100) 100 Unit/Ml (3 Ml) Insuln.pen 12/06/16 Canagliflozin (INVOKANA) 300 Mg Tablet, 150 MG PO DAILY 12/06/16 Digoxin (DIGOXIN) 125 Mcg Tablet, 125 MCG PO DAILY 07/04/14 Omeprazole (OMEPRAZOLE) 20 Mg Tablet.dr, 20 MG PO QDAY TAKE ONE TABLET BY MOUTH ONCE A DAY 07/03/14 Paroxetine Hcl (PAROXETINE HCL) 40 Mg Tablet, 1 TAB PO DAILY, #30 07/02/14 Atorvastatin Calcium (ATORVASTATIN CALCIUM) 40 Mg Tablet, 1 TAB PO DAILY, #90 07/02/14 Levothyroxine Sodium (LEVOTHYROXINE SODIUM) 88 Mcg Tablet, 1 TAB PO DAILY, #90 07/02/14 Discontinued Reported Medications Insulin Glargine,Hum.rec.anlog (Nichole Penaostar) 300 Unit/1 Ml Insuln.pen 08/16/18 Clonazepam (CLONAZEPAM) 0.5 Mg Tablet, 0.5 MG PO DAILY, #6 TAB 12/06/16 Primidone (PRIMIDONE) 50 Mg Tab, 100 MG PO BID, TAB 12/06/16 Rivaroxaban (XARELTO 10 MG TAB (OR EQUIV)) 10 Mg Tablet, 20 MG PO QDAY, TAB 12/06/16 Lisinopril (LISINOPRIL) 10 Mg Tablet, 10 MG PO QDAY, TAB 12/06/16 Atenolol (ATENOLOL) 50 Mg Tablet, 1 TAB PO QDAY, TAB 12/06/16 Furosemide (FUROSEMIDE) 20 Mg Tablet, 1 TAB PO DAILY, #30 07/02/14 Allopurinol (Allopurinol) 300 Mg Tablet, 1 TAB PO DAILY, #90 07/02/14 Discontinued Scripts Prednisone (PREDNISONE) 20 Mg Tablet, 20 MG PO BIDBS, #7 TAB 0 Refills One tab twice a day for 2 days then one tab a day for two days then one-half tab a day for two days then off. Prov:BALWINDER DIAMOND MD 12/09/16 Diet: Diabetic Activity: As Tolerated Special Instructions: Strongly recommend weaning and cessation of opioid pain medications. Please follow up with your primary care to reconcile medications. Copies to: JUAN C CARRANZA MD ; Venous Thromboembolism Antithrombotics Is Pt On Any Antithrombotics?: Yes OMID THRASHER DO Aug 18, 2018 13:15
[2018-08-19] MEDS ORDERED: INFLUENZA VIRUS VAC 0.5ML SYR IM ONLY ONE (09:00)
== END 2018-08-18 14:15 | disposition home or self-care (01) | DRG 93 ==
LOC: ER 09:38 → MED 15:40
PROVIDERS: ADMIT Internal Medicine; ATTEND Internal Medicine
DX: G92 Toxic encephalopathy (principal); I48.2 Chronic atrial fibrillation; E11.649 Type 2 diabetes mellitus with hypoglycemia without coma; T40.2X5A Adverse effect of other opioids, initial encounter; Z79.4 Long term (current) use of insulin; E03.9 Hypothyroidism, unspecified
CPT/HCPCS: 36415; 36416; 70450; 71045; 74176; 80162; 81001; 82040; 82247; 82310; 82374; 82435; 82565; 82947; 82948; 83605; 83690; 83735; 84075; 84132; 84155; 84295; 84450; 84460; 84484; 84520; 85025; 85610; 85730; 87324; 87449; 93005; 96361; 96365; 99285; A4353; J1650; J3475; J3480; J7030; Q9967

== ENCOUNTER 2018-08-20 12:28 | Emergency (ER) | payer MEDICARE ==
[2018-08-17 10:06] VITALS: Wt 108.9 kg
[~2018-08-20 12:28] MED LIST changes: +FENO67CA3; +GABA-533; +INSU300I; +METO100T20; +RIVA20TA
--- NOTE | 2018-08-20 12:38 | ER Report ---
History and Physical Time Seen By MD: 12:36 HPI/ROS CHIEF COMPLAINT: Abdominal pain HISTORY OF PRESENT ILLNESS: Patient is a 78-year-old female who was recently admitted on August 16 initially seen in the ER for acute abdominal pain but was found to be confused. Patient was admitted to the hospital at that time and discharged on August 18. CT scan of the abdomen and pelvis along with blood work failed to yield any source for the patient's abdominal pain. The confusion was felt to be secondary to opiate narcosis. Patient had recently been prescribed 10 mg hydrocodone tablets #150 prior to evaluation on the . As narcotics were withdrawn in the hospital stay the patient's sensorium reported to clear. She states that she still having abdominal pain and multiple episodes of watery stools for the last few days. She denies any fevers or chills. Her sensorium has improved since decreasing her narcotic medication. She denies any fevers or chills. She denies chest pain or shortness of breath. No recent history of antibiotic use or travel. REVIEW OF SYSTEMS: Constitutional: No fever, no chills. Eyes: No discharge. ENT: No sore throat. Cardiovascular: No chest pain, no palpitations. Respiratory: No cough, no shortness of breath. Gastrointestinal: Lower abdominal pain, nausea and profuse watery diarrhea Genitourinary: No hematuria. Musculoskeletal: No back pain. Skin: No rashes. Neurological: No headache. Allergies: Coded Allergies: pentazocine (Verified Allergy, Mild, NAUSEA/VOMITING, 08/16/18) Uncoded Allergies: STRAW LOU (Allergy, Severe, RESP PROBLEMS, 01/11/08) TAPE (Allergy, Mild, BLISTERS, 12/05/07) Home Meds Active Scripts Ondansetron Hcl (ZOFRAN) 4 Mg Tablet, 4 MG PO Q8H for Nausea, #15 TAB 0 Refills Prov:SANTIAGO SEGURA MD 08/20/18 Dicyclomine Hcl (DICYCLOMINE HCL) 20 Mg Tablet, 20 MG PO QID for diarrhea, #20 TAB 0 Refills Prov:SANTIAGO SEGURA MD 08/20/18 Budesonide/Formoterol Fumarate (SYMBICORT 160-4.5 MCG INHALER) 10.2 Gm Inh, 2 EACH INH BIDR for 30 Days, #1 INH 1 Refill Two puffs two times a day. Prov:BALWINDER DIAMOND MD 12/09/16 Reported Medications Rivaroxaban 20 Mg (XARELTO 20 MG) 20 Mg Tablet 08/16/18 Fenofibrate,Micronized (FENOFIBRATE) 67 Mg Capsule 08/16/18 Gabapentin (GABAPENTIN) 600 Mg Tablet 08/16/18 Metoprolol Succinate (METOPROLOL SUCCINATE) 100 Mg Tab.er.24h 08/16/18 Insulin Degludec (Tresiba Flextouch U-100) 100 Unit/Ml (3 Ml) Insuln.pen 12/06/16 Canagliflozin (INVOKANA) 300 Mg Tablet, 150 MG PO DAILY 12/06/16 Digoxin (DIGOXIN) 125 Mcg Tablet, 125 MCG PO DAILY 07/04/14 Omeprazole (OMEPRAZOLE) 20 Mg Tablet.dr, 20 MG PO QDAY TAKE ONE TABLET BY MOUTH ONCE A DAY 07/03/14 Paroxetine Hcl (PAROXETINE HCL) 40 Mg Tablet, 1 TAB PO DAILY, #30 07/02/14 Atorvastatin Calcium (ATORVASTATIN CALCIUM) 40 Mg Tablet, 1 TAB PO DAILY, #90 07/02/14 Levothyroxine Sodium (LEVOTHYROXINE SODIUM) 88 Mcg Tablet, 1 TAB PO DAILY, #90 07/02/14 Discontinued Reported Medications Insulin Glargine,Hum.rec.anlog (Toujeo Solostar) 300 Unit/1 Ml Insuln.pen 08/16/18 Clonazepam (CLONAZEPAM) 0.5 Mg Tablet, 0.5 MG PO DAILY, #6 TAB 12/06/16 Primidone (PRIMIDONE) 50 Mg Tab, 100 MG PO BID, TAB 12/06/16 Rivaroxaban (XARELTO 10 MG TAB (OR EQUIV)) 10 Mg Tablet, 20 MG PO QDAY, TAB 12/06/16 Lisinopril (LISINOPRIL) 10 Mg Tablet, 10 MG PO QDAY, TAB 12/06/16 Atenolol (ATENOLOL) 50 Mg Tablet, 1 TAB PO QDAY, TAB 12/06/16 Furosemide (FUROSEMIDE) 20 Mg Tablet, 1 TAB PO DAILY, #30 07/02/14 Allopurinol (Allopurinol) 300 Mg Tablet, 1 TAB PO DAILY, #90 07/02/14 Discontinued Scripts Prednisone (PREDNISONE) 20 Mg Tablet, 20 MG PO BIDBS, #7 TAB 0 Refills One tab twice a day for 2 days then one tab a day for two days then one-half tab a day for two days then off. Prov:BALWINDER DIAMOND MD 12/09/16 Past Medical/Surgical History Insulin requiring diabetes, history of atrial fibrillation on a control and Xarelto, history of hypothyroidism, history of hypercholesterolemia Hx Smoking: Yes Smoking Status: Former Smoker Exposure to Second Hand Smoke?: No Hx Substance Use Disorder: No Hx Alcohol Use: No Constitutional Vital Sign - Last 24 Hours 08/20/18 08/20/18 08/20/18 08/20/18 12:39 12:41 13:00 14:01 Temp 99.0 Pulse 103 101 Resp 20 B/P (MAP) 174/98 174/98 (123) 178/106 (130) 163/134 (144) Pulse Ox 90 91 O2 Delivery Nasal Cannula 08/20/18 08/20/18 14:30 15:00 Pulse 92 B/P (MAP) 131/91 (104) Pulse Ox 87 85 Intake and Output 08/20/18 08/20/18 08/21/18 15:00 23:00 07:00 Intake Total 1000 ml Balance 1000 ml Physical Exam General/Constitutional: Patient is awake, alert, nontoxic and in no acute respiratory distress. Elevated BMI Head: Normocephalic and atraumatic. Eyes: Conjunctival clear, Pupils are equal and reactive to light. Extraocular muscles are intact and symmetrical. Sclera are clear and anicteric. Ears:External canals are clear. Tympanic membranes are clear with normal landmarks and light reflex. Nares: No rhinorrhea or bleeding. Turbinates are pink and moist. Oropharyngeal: Mucous membranes are moist. There is no pharyngeal erythema or exudate. There are no palatal petechiae. Uvula is midline and symmetrical. Neck: Supple, no adenopathy. Cardiovascular: Heart is regular rate and rhythm without audible murmurs, rubs or gallops. Pulmonary: Lungs are clear to auscultation bilaterally. There are no wheezes, rales, or rhonchi. Chest rise is symmetrical Abdomen: Abdomen is soft and protuberant tenderness bilateral lower quadrants without peritoneal signs. Extremities: No gross deformities, No peripheral cyanosis. Able to move all 4 extremities. Neuro: Alert and oriented X3, Skin: No rashes, skin is warm dry and well perfused. Medical Decision Making Data Points Result Diagram: 08/20/18 1259 08/20/18 1259 Laboratory Hematology Test 08/20/18 00:00 08/20/18 12:59 08/20/18 14:06 Red Blood Count 4.55 M/uL (4.17-5.56) Mean Corpuscular Volume 92.1 fL (80.0-96.0) Mean Corpuscular Hemoglobin 29.3 pg (26.0-33.0) Mean Corpuscular Hemoglobin Concent 31.8 g/dL (32.0-36.0) Red Cell Distribution Width 15.0 % (11.5-14.5) Mean Platelet Volume 7.8 fL (7.2-11.1) Neutrophils (%) (Auto) 72.4 % (39.4-72.5) Lymphocytes (%) (Auto) 15.5 % (17.6-49.6) Monocytes (%) (Auto) 7.7 % (4.1-12.4) Eosinophils (%) (Auto) 2.8 % (0.4-6.7) Basophils (%) (Auto) 1.6 % (0.3-1.4) Nucleated RBC Relative Count (auto) 0.0 /100WBC Neutrophils # (Auto) 4.7 K/uL (2.0-7.4) Lymphocytes # (Auto) 1.0 K/uL (1.3-3.6) Monocytes # (Auto) 0.5 K/uL (0.3-1.0) Eosinophils # (Auto) 0.2 K/uL (0.0-0.5) Basophils # (Auto) 0.1 K/uL (0.0-0.1) Nucleated RBC Absolute Count (auto) 0.00 K/uL Prothrombin Time 13.5 seconds (12.0-14.4) Prothromb Time International Ratio 1.03 Activated Partial Thromboplast Time 30 seconds (23-35) Sodium Level 140 mmol/L (137-145) Potassium Level 3.8 mmol/L (3.5-5.0) Chloride Level 102 mmol/L (98-107) Carbon Dioxide Level 32 mmol/L (22-31) Blood Urea Nitrogen 12 mg/dl (7-18) Creatinine 0.90 mg/dl (0.52-1.04) Glomerular Filtration Rate Calc > 60.0 Random Glucose 118 mg/dl (75-110) Calcium Level 9.7 mg/dl (8.4-10.2) Total Bilirubin 1.2 mg/dl (0.2-1.3) Aspartate Amino Transf (AST/SGOT) 29 U/L (0-35) Alanine Aminotransferase (ALT/SGPT) 36 U/L (0-56) Alkaline Phosphatase 73 U/L (0-126) Total Protein 6.9 g/dl (6.3-8.2) Albumin 3.8 g/dl (3.5-5.0) Lipase 88 U/L (23-300) Thyroid Stimulating Hormone (TSH) 4.90 uIU/ml (0.46-4.68) Digoxin Level 0.6 ng/ml Digoxin Last Dose Date unk Digoxin Last Dose Time unk Helicobacter pylori IgG Antibody Negative (NEGATIVE) Urine Color Yellow Urine Clarity Cloudy Urine pH 8.0 pH (4.8-9.5) Urine Specific [place] 1.013 Urine Protein Negative mg/dL (NEGATIVE) Urine Glucose (UA) Negative mg/dL (NEGATIVE) Urine Ketones Negative mg/dL (NEGATIVE) Urine Blood Negative (NEGATIVE) Urine Nitrite Negative (NEGATIVE) Urine Bilirubin Negative (NEGATIVE) Urine Urobilinogen Negative mg/dL (0.2-1.9) Urine Leukocyte Esterase Moderate (NEGATIVE) Urine RBC 5 /HPF (0-2/HPF) Urine WBC 37 /HPF (0-5/HPF) Urine Squamous Epithelial Cells Many /LPF (</=FEW) Urine Transitional Epithelial Cells Many /LPF (NONE-FEW) Urine Bacteria Few /HPF (NONE-FEW) Urine Mucus None /HPF (NONE-FEW) Chemistry Test 08/20/18 00:00 08/20/18 12:59 08/20/18 14:06 White Blood Count 6.5 k/uL (4.5-11.0) Red Blood Count 4.55 M/uL (4.17-5.56) Hemoglobin 13.3 g/dL (12.0-16.0) Hematocrit 41.9 % (34.0-47.0) Mean Corpuscular Volume 92.1 fL (80.0-96.0) Mean Corpuscular Hemoglobin 29.3 pg (26.0-33.0) Mean Corpuscular Hemoglobin Concent 31.8 g/dL (32.0-36.0) Red Cell Distribution Width 15.0 % (11.5-14.5) Platelet Count 216 K/uL (150-450) Mean Platelet Volume 7.8 fL (7.2-11.1) Neutrophils (%) (Auto) 72.4 % (39.4-72.5) Lymphocytes (%) (Auto) 15.5 % (17.6-49.6) Monocytes (%) (Auto) 7.7 % (4.1-12.4) Eosinophils (%) (Auto) 2.8 % (0.4-6.7) Basophils (%) (Auto) 1.6 % (0.3-1.4) Nucleated RBC Relative Count (auto) 0.0 /100WBC Neutrophils # (Auto) 4.7 K/uL (2.0-7.4) Lymphocytes # (Auto) 1.0 K/uL (1.3-3.6) Monocytes # (Auto) 0.5 K/uL (0.3-1.0) Eosinophils # (Auto) 0.2 K/uL (0.0-0.5) Basophils # (Auto) 0.1 K/uL (0.0-0.1) Nucleated RBC Absolute Count (auto) 0.00 K/uL Prothrombin Time 13.5 seconds (12.0-14.4) Prothromb Time International Ratio 1.03 Activated Partial Thromboplast Time 30 seconds (23-35) Glomerular Filtration Rate Calc > 60.0 Calcium Level 9.7 mg/dl (8.4-10.2) Total Bilirubin 1.2 mg/dl (0.2-1.3) Aspartate Amino Transf (AST/SGOT) 29 U/L (0-35) Alanine Aminotransferase (ALT/SGPT) 36 U/L (0-56) Alkaline Phosphatase 73 U/L (0-126) Total Protein 6.9 g/dl (6.3-8.2) Albumin 3.8 g/dl (3.5-5.0) Lipase 88 U/L (23-300) Thyroid Stimulating Hormone (TSH) 4.90 uIU/ml (0.46-4.68) Digoxin Level 0.6 ng/ml Digoxin Last Dose Date unk Digoxin Last Dose Time unk Helicobacter pylori IgG Antibody Negative (NEGATIVE) Urine Color Yellow Urine Clarity Cloudy Urine pH 8.0 pH (4.8-9.5) Urine Specific [place] 1.013 Urine Protein Negative mg/dL (NEGATIVE) Urine Glucose (UA) Negative mg/dL (NEGATIVE) Urine Ketones Negative mg/dL (NEGATIVE) Urine Blood Negative (NEGATIVE) Urine Nitrite Negative (NEGATIVE) Urine Bilirubin Negative (NEGATIVE) Urine Urobilinogen Negative mg/dL (0.2-1.9) Urine Leukocyte Esterase Moderate (NEGATIVE) Urine RBC 5 /HPF (0-2/HPF) Urine WBC 37 /HPF (0-5/HPF) Urine Squamous Epithelial Cells Many /LPF (</=FEW) Urine Transitional Epithelial Cells Many /LPF (NONE-FEW) Urine Bacteria Few /HPF (NONE-FEW) Urine Mucus None /HPF (NONE-FEW) Coagulation Test 08/20/18 12:59 Prothrombin Time 13.5 seconds Prothromb Time International Ratio 1.03 Activated Partial Thromboplast Time 30 seconds Toxicology Test 08/20/18 12:59 Digoxin Level 0.6 ng/ml Digoxin Last Dose Date unk Digoxin Last Dose Time unk Urinalysis Test 08/20/18 14:06 Urine Color Yellow Urine Clarity Cloudy Urine pH 8.0 pH (4.8-9.5) Urine Specific [place] 1.013 Urine Protein Negative mg/dL (NEGATIVE) Urine Glucose (UA) Negative mg/dL (NEGATIVE) Urine Ketones Negative mg/dL (NEGATIVE) Urine Blood Negative (NEGATIVE) Urine Nitrite Negative (NEGATIVE) Urine Bilirubin Negative (NEGATIVE) Urine Urobilinogen Negative mg/dL (0.2-1.9) Urine Leukocyte Esterase Moderate (NEGATIVE) Urine RBC 5 /HPF (0-2/HPF) Urine WBC 37 /HPF (0-5/HPF) Urine Squamous Epithelial Cells Many /LPF (</=FEW) Urine Transitional Epithelial Cells Many /LPF (NONE-FEW) Urine Bacteria Few /HPF (NONE-FEW) Urine Mucus None /HPF (NONE-FEW) EKG/Imaging Imaging FACILITY: [facility] PATIENT NAME: Flower Burk : 1940 MR: [id number] V: [id number] EXAM DATE: ORDERING PHYSICIAN: SANTIAGO SEGURA TECHNOLOGIST: Location: [facility] - [place] Patient: Flower Burk : 1940 Visit/Account:[id number] Date of Sevice: 08/20/2018 CT ABDOMEN PELVIS W/O CON HISTORY: Abdomen pain TECHNIQUE: Axial images acquired through the abdomen/pelvis. Coronal and sagittal reformatting also performed. No IV contrast administered.Dose Lowering Technique One of the following dose optimization techniques was utilized in the performance of this exam: Automated exposure control; adjustment of the mA and/or kV according to the patient's size; or use of an iterative recons truction technique. Specific details can be referenced in the facility's radiology CT exam operational policy. COMPARISON: August 16, 2018 FINDINGS: Visualized lung bases: Small amount of atelectasis versus scarring in the lung bases. Tiny calcified granulomas. Coronary artery calcifications . Incidental lipomatous hypertrophy of the intra-atrial septum Hepatobiliary: There postsurgical changes from a cholecystectomy Spleen: Negative. Adrenals: Right adrenal gland appears unremarkable. Left adrenal gland not well seen. Again noted is a tiny nodule just medial to the spleen that appears unchanged. This could be related to a small splenule or related to remnant of the left adrenal gland Pancreas: Negative. Kidneys ureters and bladder: Bilateral renal cysts appear unchanged. There are peripheral calcifications in the upper pole right renal cyst. There is no d emonstration of nephrolithiasis, hydronephrosis or hydroureter Genitalia: Hysterectomy GI: There is a diverticulum projecting from the second portion of the duodenum. There is diverticulosis of the left-sided colon although no CT evidence of acute diverticulitis. There is no evidence of bowel obstruction Vessels/spaces/nodes: At least moderate atherosclerotic calcifications of the abdominal aorta and branch vessels Bones/soft tissues: Previously noted soft tissue density structure along the anterior abdominal wall just below the umbilicus with linear stranding towards the skin and slight posterior extension into the abdominal cavity appear similar to a prior study dated March 21, 2015 For the slight difference in imaging technology. There are extensive spondylotic changes throughout the lumbar spine to lesser extent thoracic spine and postsurgical changes of the lower lumbar spine that appear relatively unchanged Additional findings: None pertinent. IMPRESSION: Diverticulosis left-sided colon although no CT evidence of acute diverticulitis No evidence of bowel obstruction No evidence of nephrolithiasis or hydronephrosis. At least moderate atherosclerotic calcifications in the abdominal aorta and branch vessels Previous noted soft tissue density structure along the anterior abdominal wall just below the umbilicus as described above appears relatively stable when compared to prior CT from March 21, 2015 Report Dictated By: Melanie Shi MD at 08/20/2018 1:52 PM Report E-Signed By: Melanie Shi MD at 08/20/2018 2:07 PM CALLIN:MEGAN ED Course/Re-evaluation Clinical Indication for ER IV: Hydration, IV Access ED Course 08/20/2018 2:44:07 pm workup is unremarkable for acute abdominal pathology blood work is unremarkable urinalysis unremarkable. Patient unable to give stool sample in the emergency department. Plan at this time will be to send the patient home on Zofran along with Bentyl for diarrhea send home with prescription for C. difficile toxin a and B analysis and patient instructed to return if symptoms worsen Decision to Disposition Date: Aug 20, 2018 Decision to Disposition Time: 15:10 Depart Departure Latest Vital Signs Vital Signs Date Time Temp Pulse Resp B/P (MAP) Pulse Ox O2 Delivery O2 Flow Rate FiO2 08/20/18 15:00 85 08/20/18 14:30 92 131/91 (104) 08/20/18 12:39 99.0 20 Nasal Cannula Impression: Primary Impression: Diarrhea Additional Impression: Abdominal pain Condition: Improved Disposition: HOME OR SELF-CARE Referrals: JUAN C CARRANZA MD (PCP) New Scripts Ondansetron Hcl (ZOFRAN) 4 Mg Tablet 4 MG PO Q8H for Nausea, #15 TAB 0 Refills Prov: SANTIAGO SEGURA MD 08/20/18 Dicyclomine Hcl (DICYCLOMINE HCL) 20 Mg Tablet 20 MG PO QID for diarrhea, #20 TAB 0 Refills Prov: SANTIAGO SEGURA MD 08/20/18 Patient Instructions: Abdominal Pain (ED), Acute Diarrhea (ED) Problem Qualifiers Primary Impression: Diarrhea Diarrhea type: unspecified type Qualified Codes: R19.7 - Diarrhea, unspecified Additional Impression: Abdominal pain Abdominal location: lower abdomen, unspecified Qualified Codes: R10.30 - Lower abdominal pain, unspecified SANTIAGO SEGURA MD Aug 20, 2018 12:38
[2018-08-20] MEDS ORDERED: ONDANSETRON 4 MG/2 ML VIAL IVP ONE (12:45)
[2018-08-20] MEDS ORDERED: KETOROLAC 30 MG/ML VIAL IVP ONE (12:45)
[2018-08-20] MEDS ORDERED: NS(*) 0.9% 1000 ML BAG 1,000 ML IV ONE (12:45)
[2018-08-20] MEDS ORDERED: DICYCLOMINE HCL 10 MG CAP PO ONE (12:55)
[2018-08-20] MEDS ORDERED: KETOROLAC 30 MG/ML VIAL ONE (13:07)
[2018-08-20] MEDS ORDERED: ONDANSETRON 4 MG/2 ML VIAL ONE (13:07)
[2018-08-20] MEDS ORDERED: DICYCLOMINE HCL 10 MG CAP ONE ×2 (13:07→13:17)
[2018-08-20 13:11] LABS: PLATELET COUNT, AUTOMATED 216 K/uL (150-450)
[2018-08-20 13:19] LABS: INR 1.03
--- NOTE | 2018-08-20 14:12 | RADIOLOGY IMAGING REPORT ---
FACILITY: [facility] - [place] PATIENT NAME: Flower Burk : 1940 MR: [id number] V: [id number] EXAM DATE: ORDERING PHYSICIAN: SANTIAGO SEGURA TECHNOLOGIST: Location: [facility] - [place] Patient: Flower Burk : 1940 Visit/Account:[id number] Date of Sevice: 08/20/2018 CT ABDOMEN PELVIS W/O CON HISTORY: Abdomen pain TECHNIQUE: Axial images acquired through the abdomen/pelvis. Coronal and sagittal reformatting also performed. No IV contrast administered.Dose Lowering Technique One of the following dose optimization techniques was utilized in the performance of this exam: Autom ated exposure control; adjustment of the mA and/or kV according to the patient's size; or use of an i terative reconstruction technique. Specific details can be referenced in the facility's radiology C T exam operational policy. COMPARISON: August 16, 2018 FINDINGS: Visualized lung bases: Small amount of atelectasis versus scarring in the lung bases. Tiny calcified granulomas. Coronary artery calcifications . Incidental lipomatous hypertrophy of t he intra-atrial septum Hepatobiliary: There postsurgical changes from a cholecystectomy Spleen: Negative. Adrenals: Right adrenal gland appears unremarkable. Left adrenal gland not well seen. Again noted is a tiny nodule just medial to the spleen that appears unchanged. This could be related to a small splenule or related to remnant of the left adrenal gland Pancreas: Negative. Kidneys ureters and bladder: Bilateral renal cysts appear unchanged. There are peripheral calcificat ions in the upper pole right renal cyst. There is no demonstration of nephrolithiasis, hydronephrosi s or hydroureter Genitalia: Hysterectomy GI: There is a diverticulum projecting from the second portion of the duodenum. There is diverticul osis of the left-sided colon although no CT evidence of acute diverticulitis. There is no evidence o f bowel obstruction Vessels/spaces/nodes: At least moderate atherosclerotic calcifications of the abdominal aorta and br anch vessels Bones/soft tissues: Previously noted soft tissue density structure along the anterior abdominal wall just below the umbilicus with linear stranding towards the skin and slight posterior extension into the abdominal cavity appear similar to a prior study dated March 21, 2015 For the slight difference in imaging technology. There are extensive spondylotic changes throughout the lumbar spine to lesser extent thoracic spine and postsurgical changes of the lower lumbar spine t hat appear relatively unchanged Additional findings: None pertinent. IMPRESSION: Diverticulosis left-sided colon although no CT evidence of acute diverticulitis No evidence of bowel obstruction No evidence of nephrolithiasis or hydronephrosis. At least moderate atherosclerotic calcifications in the abdominal aorta and branch vessels Previous noted soft tissue density structure along the anterior abdominal wall just below the umbilic us as described above appears relatively stable when compared to prior CT from March 21, 2015 Report Dictated By: Melanie Shi MD at 08/20/2018 1:52 PM Report E-Signed By: Melanie Shi MD at 08/20/2018 2:07 PM WSN:[email or web address]
[2018-08-20 14:30] VITALS: BP 131/91
[2018-08-20] MEDS ORDERED: PIPERACILLIN/TAZO*3.375GM VIAL 0 GM ONE (14:31)
[2018-08-20] MEDS ORDERED: NS(*) 0.9% 100 ML ADDVANT BAG 0 ML ONE (14:32)
[2018-08-20] MEDS ORDERED: ONDA4TAB97 PO (14:48)
[2018-08-20] MEDS ORDERED: DICY20TA70 PO (14:48)
== END 2018-08-20 15:00 | disposition home or self-care (01) ==
LOC: ER 13:16
DX: R19.7 Diarrhea, unspecified (principal); R10.31 Right lower quadrant pain; R10.32 Left lower quadrant pain
CPT/HCPCS: 74176; 80162; 81001; 83690; 84443; 85025; 85610; 85730; 86677; 87088; 96361; 96374; 96375; 99284; A9270; J1885; J2405; J7030; 82040; 82247; 82310; 82374; 82435; 82565; 82947; 84075; 84132; 84155; 84295; 84450; 84460; 84520

== ENCOUNTER → 2018-08-25 | Outpatient (CLI) | payer MEDICARE ==
[2018-08-17 10:06] VITALS: BMI 52.7
[~2018-08-25] MED LIST changes: +DICY20TA70 PO; +ONDA4TAB97 PO
== END ==
LOC: LAB 07:58
PROVIDERS: ATTEND Emergency Medicine
DX: R19.7 Diarrhea, unspecified (principal)

== ENCOUNTER → 2018-08-28 | Outpatient (REF) | payer MEDICARE ==
[2018-08-17 10:06] VITALS: BMI 52.7
== END ==
LOC: ZZSENDIN 16:57
PROVIDERS: ATTEND Family Medicine
DX: R19.7 Diarrhea, unspecified (principal)
CPT/HCPCS: 87324; 87449

== ENCOUNTER 2018-09-29 07:29 | Inpatient (IN) | payer MEDICARE ==
[~2018-09-29] VITALS: Ht 157.5 cm; Wt 118.0 kg
[~2018-09-29 07:29] MED LIST changes: -ALLO-119 PO; -INSU100I30 SUBQ; -INSU300I SUBQ; -PRED-1 PO
--- NOTE | 2018-09-29 07:37 | ER Report ---
History and Physical Time Seen By MD: 07:35 HPI/ROS CHIEF COMPLAINT: Chest pain and shortness of breath HISTORY OF PRESENT ILLNESS: She is a 78-year-old female who is brought to the emergency department by ambulance secondary to shortness of breath and low oxygen saturation. Patient states that whenever snows she has an exacerbation of her reactive airways disease. She states that she does not use albuterol because it "makes her shaky". She is on Symbicort. She states that yesterday afternoon she developed a substernal chest pain and tightness which has improved but has not completely gone away. She states she denies fever or chills. She reports some chronic abdominal pain. Patient states that she lives by herself. He states she is afraid to go home because of her difficulty breathing. Patient states she's been experiencing paroxysmal nocturnal dyspnea and orthopnea. REVIEW OF SYSTEMS: Constitutional: No fever, no chills. Eyes: No discharge. ENT: No sore throat. Cardiovascular: Chest pain Respiratory: Shortness of breath and dyspnea Gastrointestinal: Abdominal pain without nausea vomiting or diarrhea. Genitourinary: No hematuria. Musculoskeletal: No back pain. Skin: No rashes. Neurological: No headache. Allergies: Coded Allergies: pentazocine (Verified Allergy, Mild, NAUSEA/VOMITING, 09/29/18) Uncoded Allergies: STRAW LOU (Allergy, Severe, RESP PROBLEMS, 01/11/08) TAPE (Allergy, Mild, BLISTERS, 12/05/07) Home Meds Active Scripts Ondansetron Hcl (ZOFRAN) 4 Mg Tablet, 4 MG PO Q8H for Nausea, #15 TAB 0 Refills Prov:SANTIAGO SEGURA MD 08/20/18 Dicyclomine Hcl (DICYCLOMINE HCL) 20 Mg Tablet, 20 MG PO QID for diarrhea, #20 TAB 0 Refills Prov:SANTIAGO SEGURA MD 08/20/18 Budesonide/Formoterol Fumarate (SYMBICORT 160-4.5 MCG INHALER) 10.2 Gm Inh, 2 EACH INH BIDR for 30 Days, #1 INH 1 Refill Two puffs two times a day. Prov:BALWINDER DIAMOND MD 12/09/16 Reported Medications Rivaroxaban 20 Mg (XARELTO 20 MG) 20 Mg Tablet 08/16/18 Fenofibrate,Micronized (FENOFIBRATE) 67 Mg Capsule 08/16/18 Gabapentin (GABAPENTIN) 600 Mg Tablet 08/16/18 Metoprolol Succinate (METOPROLOL SUCCINATE) 100 Mg Tab.er.24h 08/16/18 Insulin Degludec (Tresiba Flextouch U-100) 100 Unit/Ml (3 Ml) Insuln.pen 12/06/16 Canagliflozin (INVOKANA) 300 Mg Tablet, 150 MG PO DAILY 12/06/16 Digoxin (DIGOXIN) 125 Mcg Tablet, 125 MCG PO DAILY 07/04/14 Omeprazole (OMEPRAZOLE) 20 Mg Tablet.dr, 20 MG PO QDAY TAKE ONE TABLET BY MOUTH ONCE A DAY 07/03/14 Paroxetine Hcl (PAROXETINE HCL) 40 Mg Tablet, 1 TAB PO DAILY, #30 07/02/14 Atorvastatin Calcium (ATORVASTATIN CALCIUM) 40 Mg Tablet, 1 TAB PO DAILY, #90 07/02/14 Levothyroxine Sodium (LEVOTHYROXINE SODIUM) 88 Mcg Tablet, 1 TAB PO DAILY, #90 07/02/14 Past Medical/Surgical History Insulin requiring diabetes, history of atrial fibrillation on a control and Xarelto, history of hypothyroidism, history of hypercholesterolemia Hx Smoking: Yes Smoking Status: Former Smoker Exposure to Second Hand Smoke?: No Hx Substance Use Disorder: No Hx Alcohol Use: No Constitutional Vital Sign - Last 24 Hours 09/29/18 09/29/18 09/29/18 09/29/18 07:35 07:36 07:40 07:50 Temp 99.6 Pulse 120 Resp 20 B/P (MAP) 146/100 (115) 146/100 Pulse Ox 96 77 O2 Delivery Room Air Room Air O2 Flow Rate 12.0 09/29/18 09/29/18 09/29/18 09/29/18 07:51 08:00 08:20 08:20 Pulse 104 95 Resp 16 20 Pulse Ox 99 100 O2 Delivery Oxy Mask O2 Flow Rate 15.0 10.0 09/29/18 09/29/18 09/29/18 09/29/18 08:30 08:30 08:35 08:40 Pulse 109 109 103 107 Resp 20 20 19 21 Pulse Ox 96 96 95 95 09/29/18 09/29/18 09/29/18 09/29/18 08:45 08:47 09:30 09:42 Pulse 108 107 Resp 86 16 B/P (MAP) 153/110 (124) 164/90 (114) Pulse Ox 92 93 97 O2 Delivery Oxy Mask O2 Flow Rate 9.0 09/29/18 09/29/18 09/29/18 09/29/18 09:42 09:48 10:00 10:30 Pulse 96 97 99 Resp 22 22 13 15 B/P (MAP) 159/115 (130) Pulse Ox 93 94 Physical Exam General/Constitutional: Patient is awake, alert, increased work of breathing and accessory muscle use. Head: Normocephalic and atraumatic. Eyes: Conjunctival clear, Sclera are clear and anicteric. Ears:External canals are clear. Tympanic membranes are clear with normal landmarks and light reflex. Nares: No rhinorrhea or bleeding. Turbinates are pink and moist. Oropharyngeal: Mucous membranes are moist. There is no pharyngeal erythema or exudate. There are no palatal petechiae. Uvula is midline and symmetrical. Neck: Supple, no adenopathy. Cardiovascular: Heart is irregularly irregular and tachycardic. Pulmonary: Lungs are decreased breath sounds with bilateral crackles and occasional wheezing. Abdomen: Soft, nontender, no guarding or peritoneal signs. Extremities: No gross deformities, No peripheral cyanosis. Able to move all 4 extremities. 1-2+ pitting edema bilateral lower extremities. Neuro: Alert and oriented X3, Skin: No rashes, skin is warm dry and well perfused. Medical Decision Making Data Points Result Diagram: 09/29/18 0742 09/29/18 0742 Laboratory Hematology Test 09/29/18 07:42 09/29/18 10:41 Red Blood Count 4.47 M/uL (4.17-5.56) Mean Corpuscular Volume 91.5 fL (80.0-96.0) Mean Corpuscular Hemoglobin 30.1 pg (26.0-33.0) Mean Corpuscular Hemoglobin Concent 32.9 g/dL (32.0-36.0) Red Cell Distribution Width 15.4 % (11.5-14.5) Mean Platelet Volume 7.9 fL (7.2-11.1) Neutrophils (%) (Auto) 84.0 % (39.4-72.5) Lymphocytes (%) (Auto) 10.1 % (17.6-49.6) Monocytes (%) (Auto) 4.4 % (4.1-12.4) Eosinophils (%) (Auto) 0.6 % (0.4-6.7) Basophils (%) (Auto) 0.9 % (0.3-1.4) Nucleated RBC Relative Count (auto) 0.1 /100WBC Neutrophils # (Auto) 6.7 K/uL (2.0-7.4) Lymphocytes # (Auto) 0.8 K/uL (1.3-3.6) Monocytes # (Auto) 0.4 K/uL (0.3-1.0) Eosinophils # (Auto) 0.0 K/uL (0.0-0.5) Basophils # (Auto) 0.1 K/uL (0.0-0.1) Nucleated RBC Absolute Count (auto) 0.00 K/uL Prothrombin Time 15.1 seconds (12.0-14.4) Prothromb Time International Ratio 1.18 Activated Partial Thromboplast Time 36 seconds (23-35) D-Dimer Quantitative (PE/DVT) 1.59 ug/ml (0-0.50) Sodium Level 142 mmol/L (137-145) Potassium Level 3.8 mmol/L (3.5-5.0) Chloride Level 100 mmol/L (98-107) Carbon Dioxide Level 34 mmol/L (22-31) Blood Urea Nitrogen 15 mg/dl (7-18) Creatinine 0.90 mg/dl (0.52-1.04) Glomerular Filtration Rate Calc > 60.0 Random Glucose 125 mg/dl (75-110) Calcium Level 9.8 mg/dl (8.4-10.2) Total Bilirubin 1.7 mg/dl (0.2-1.3) Aspartate Amino Transf (AST/SGOT) 21 U/L (0-35) Alanine Aminotransferase (ALT/SGPT) 21 U/L (0-56) Alkaline Phosphatase 66 U/L (0-126) B-Type Natriuretic Peptide 246 pg/ml (0-100) Total Protein 7.3 g/dl (6.3-8.2) Albumin 4.0 g/dl (3.5-5.0) Troponin I < 0.012 ng/ml Chemistry Test 09/29/18 07:42 09/29/18 10:41 White Blood Count 8.0 k/uL (4.5-11.0) Red Blood Count 4.47 M/uL (4.17-5.56) Hemoglobin 13.5 g/dL (12.0-16.0) Hematocrit 40.9 % (34.0-47.0) Mean Corpuscular Volume 91.5 fL (80.0-96.0) Mean Corpuscular Hemoglobin 30.1 pg (26.0-33.0) Mean Corpuscular Hemoglobin Concent 32.9 g/dL (32.0-36.0) Red Cell Distribution Width 15.4 % (11.5-14.5) Platelet Count 207 K/uL (150-450) Mean Platelet Volume 7.9 fL (7.2-11.1) Neutrophils (%) (Auto) 84.0 % (39.4-72.5) Lymphocytes (%) (Auto) 10.1 % (17.6-49.6) Monocytes (%) (Auto) 4.4 % (4.1-12.4) Eosinophils (%) (Auto) 0.6 % (0.4-6.7) Basophils (%) (Auto) 0.9 % (0.3-1.4) Nucleated RBC Relative Count (auto) 0.1 /100WBC Neutrophils # (Auto) 6.7 K/uL (2.0-7.4) Lymphocytes # (Auto) 0.8 K/uL (1.3-3.6) Monocytes # (Auto) 0.4 K/uL (0.3-1.0) Eosinophils # (Auto) 0.0 K/uL (0.0-0.5) Basophils # (Auto) 0.1 K/uL (0.0-0.1) Nucleated RBC Absolute Count (auto) 0.00 K/uL Prothrombin Time 15.1 seconds (12.0-14.4) Prothromb Time International Ratio 1.18 Activated Partial Thromboplast Time 36 seconds (23-35) D-Dimer Quantitative (PE/DVT) 1.59 ug/ml (0-0.50) Glomerular Filtration Rate Calc > 60.0 Calcium Level 9.8 mg/dl (8.4-10.2) Total Bilirubin 1.7 mg/dl (0.2-1.3) Aspartate Amino Transf (AST/SGOT) 21 U/L (0-35) Alanine Aminotransferase (ALT/SGPT) 21 U/L (0-56) Alkaline Phosphatase 66 U/L (0-126) B-Type Natriuretic Peptide 246 pg/ml (0-100) Total Protein 7.3 g/dl (6.3-8.2) Albumin 4.0 g/dl (3.5-5.0) Troponin I < 0.012 ng/ml Coagulation Test 09/29/18 07:42 Prothrombin Time 15.1 seconds Prothromb Time International Ratio 1.18 Activated Partial Thromboplast Time 36 seconds D-Dimer Quantitative (PE/DVT) 1.59 ug/ml EKG/Imaging EKG Interpretation EKG shows atrial fibrillation with a ventricular rate of 114 bpm. Monitor Interpretation: Atrial Fibrillation Imaging [place]ACILITY[place] [facility] [place]IENT NAME: Flower Burk : 1940 MR: [id number] V: [id number] EXAM DATE: [id number] ORDERING PHYSICIAN: SANTIAGO SEGURA TECHNOLOGIST: Location[place] [facility] [place] Patient: Flower Burk : 1940 Visit/Account:[id number] Date of Sevice: 09/29/2018 CHEST SINGLE AP COMPARISONS: Single view chest dated August 16, 2018 ADDITIONAL PERTINENT HISTORY: Chest pain FINDINGS: Cardiomediastinal silhouette: Negative. Pulmonary vasculature: Negative. Lung morrow: Somewhat decreased lung volumes with mild bibasilar atelectatic change. Otherwise negative Pleural spaces: Negative. Osseous structures: Patient status post previous anterior interbody fusion of the lower cervical spine. Surrounding soft tissues: Negative. IMPRESSION: 1. Decreased lung volumes with minimal bibasilar atelectatic change. 2. No other acute process noted. Report Dictated By: Emerson Daniels MD at 09/29/2018 8:18 AM Report E-Signed By: Emerson Daniels MD at 09/29/2018 8:19 AM WSN:[id number] ED Course/Re-evaluation ED Course 09/29/2018 8:46:06 am patient with shortness of breath at home low O2 sats by prehospital personnel. Patient states that albuterol makes her jittery. She feels anxious because of difficulty breathing. At this time will be cardiac workup with Dr. troponin and d-dimer. If d-dimer is positive will perform CT scan of the chest for PE. Decision to Disposition Date: Sep 29, 2018 Decision to Disposition Time: 11:27 Depart Departure Latest Vital Signs Vital Signs Date Time Temp Pulse Resp B/P (MAP) Pulse Ox O2 Delivery O2 Flow Rate FiO2 09/29/18 10:30 99 15 159/115 (130) 94 09/29/18 09:42 Oxy Mask 9.0 09/29/18 07:36 99.6 Impression: Primary Impression: CHF (congestive heart failure) Condition: Improved Disposition: Admitted from ER (to Dr Goncalves) Problem Qualifiers Primary Impression: CHF (congestive heart failure) Heart failure type: unspecified Heart failure chronicity: acute Qualified Codes: I50.9 - Heart failure, unspecified SANTIAGO SEGURA MD Sep 29, 2018 07:37
[2018-09-29] MEDS ORDERED: ASPIRIN 81 MG CHEW PO ONE (07:45)
--- NOTE | 2018-09-29 07:52 | EKG ---
FACILITY: [facility] - [place] PATIENT NAME: CIELO OLIVA : [id number] MR: [id number] V: [id number] EXAM DATE: ORDERING PHYSICIAN: SANTIAGO SEGURA TECHNOLOGIST: Test Reason : Blood Pressure : / mmHG Vent. Rate : 114 BPM Atrial Rate : 110 BPM P-R Int : 000 ms QRS Dur : 080 ms QT Int : 286 ms P-R-T Axes : 000 005 163 degrees QTc Int : 394 ms Atrial fibrillation Nonspecific T wave abnormality R wave progression consistent with old ant/sep SD vs lead placement When compared with ECG of 16-AUG-2018 09:20, Relatively unchanged Confirmed by SOURAV ROLLINS ([id number]) on 09/29/2018 9:29:08 AM Referred By: Confirmed By:SOURAV ROLLINS
[2018-09-29 07:58] LABS: PLATELET COUNT, AUTOMATED 207 K/uL (150-450)
[2018-09-29 08:08] LABS: INR 1.18
[2018-09-29] MEDS ORDERED: LEVALBUTEROL 1.25 MG/3 ML NEB NEB ONE ×2 (08:10→09:30)
--- NOTE | 2018-09-29 08:23 | RADIOLOGY IMAGING REPORT ---
FACILITY: [facility] - [place] PATIENT NAME: Flower Burk : 1940 MR: [id number] V: [id number] EXAM DATE: ORDERING PHYSICIAN: SANTIAGO SEGURA TECHNOLOGIST: Location: [facility] Patient: Flower Burk : 1940 Visit/Account:[id number] Date of Sevice: 09/29/2018 CHEST SINGLE AP COMPARISONS: Single view chest dated August 16, 2018 ADDITIONAL PERTINENT HISTORY: Chest pain FINDINGS: Cardiomediastinal silhouette: Negative. Pulmonary vasculature: Negative. Lung morrow: Somewhat decreased lung volumes with mild bibasilar atelectatic change. Otherwise negat butch Pleural spaces: Negative. Osseous structures: Patient status post previous anterior interbody fusion of the lower cervical spi ne. Surrounding soft tissues: Negative. IMPRESSION: 1. Decreased lung volumes with minimal bibasilar atelectatic change. 2. No other acute process noted. Report Dictated By: Emerson Daniels MD at 09/29/2018 8:18 AM Report E-Signed By: Emerson Daniels MD at 09/29/2018 8:19 AM WSN:[id number]
[2018-09-29] MEDS ORDERED: IOPAMIDOL 76% 150 ML INFUS BTL 150 ML ONE (09:07)
[2018-09-29] MEDS ORDERED: NS(*) 0.9% 50 ML BAG 50 ML ONE (09:08)
[2018-09-29] MEDS ORDERED: FUROSEMIDE 20 MG/2 ML VIAL IVP ONE (09:30)
--- NOTE | 2018-09-29 09:56 | RADIOLOGY IMAGING REPORT ---
FACILITY: [facility] PATIENT NAME: Flower Burk : 1940 MR: [id number] V: [id number] EXAM DATE: ORDERING PHYSICIAN: SANTIAGO SEGURA TECHNOLOGIST: Location: [facility] [place] Patient: Flower Burk : 1940 Visit/Account:[id number] Date of Sevice: 09/29/2018 CT CTA CHEST W & W/O CON HISTORY: SOB ADDITIONAL HISTORY: None. TECHNIQUE: CTA chest with intravenous contrast. Axial imaging acquired following administration of IV contrast timed for maximum opacification of the pulmonary arterial vasculature. Slab 3-D MIP yodit nstructed images were also created for further evaluation and interpretation. Reconstruction of [facility] data set includes multiplanar 2-D in the sagittal and coronal planes and 3-D reconstructed michelle nal slab MIP series. 3-D images were created by the technologist.Dose Lowering Technique One of the following dose optimization techniques was utilized in the performance of this exam: Autom ated exposure control; adjustment of the mA and/or kV according to the patient's size; or use of an i terative reconstruction technique. Specific details can be referenced in the facility's radiology C T exam operational policy. CONTRAST: 75 mL Isovue-370 COMPARISON: CT abdomen and pelvis August 20, 2018 FINDINGS: Lungs/pleura: There small bilateral posterior layering pleural effusions, right greater than left. There are diffuse groundglass opacities seen throughout the lungs. Heart/vessels: There is no evidence of pulmonary emboli. There are at least moderate coronary artery Mediastinum/lymph nodes: Negative. Visualized upper abdomen: There postsurgical changes from a cholecystectomy upper pole left renal cy st Bones/soft tissues: Postsurgical changes of the lower cervical spine from anterior fusion. There ex tensive spondylotic changes in the visualized thoracolumbar spine Additional findings: None IMPRESSION: No evidence of pulmonary emboli Small bilateral posterior layering pleural effusions, right greater than left There are diffuse groundglass opacities throughout the lungs. This could be related to pulmonary elmo ma or pulmonary infiltrates, clinical correlation needed Additional chronic findings as described Report Dictated By: Melanie Shi MD at 09/29/2018 9:35 AM Report E-Signed By: Melanie Shi MD at 09/29/2018 9:51 AM WSN:[email or web address]
[2018-09-29 13:14] VITALS: BP 148/116
[2018-09-29] MEDS ORDERED: ALBUTEROL 2.5 MG/3 ML NEB NEB PRN (13:40)
[2018-09-29] MEDS: ALBUTEROL/IPRATROPIUM 3 ML NEB NEB SCH ×2 (13:55→16:52)
--- NOTE | 2018-09-29 13:55 | History & Physical ---
History of Present Illness Chief Complaint Shortness of breath History of Present Illness This patient presented to the emergency room complaining of increased shortness of breath over the last several days. He breathing is much worse with exertion, but she has no chest pain. She reports getting relief after the nebulizers administered in the emergency room. History Problems: (1) CAD (coronary artery disease) Status: Chronic (2) Gout Status: Chronic (3) Diverticulosis Status: Chronic (4) Nephrolithiasis Status: Chronic (5) Obesity, morbid, BMI 50 or higher Status: Chronic (6) HTN (hypertension) Status: Chronic (7) Atrial fibrillation Status: Chronic (8) Diabetes mellitus Status: Chronic (9) Hypothyroid Status: Chronic (10) S/P knee replacement Status: Resolved (11) S/P lumbar spinal fusion Status: Resolved Home Meds Active Scripts Ondansetron Hcl (ZOFRAN) 4 Mg Tablet, 4 MG PO Q8H for Nausea, #15 TAB 0 Refills Prov:SANTIAGO SEGURA MD 08/20/18 Dicyclomine Hcl (DICYCLOMINE HCL) 20 Mg Tablet, 20 MG PO QID for diarrhea, #20 TAB 0 Refills Prov:SANTIAGO SEGURA MD 08/20/18 Budesonide/Formoterol Fumarate (SYMBICORT 160-4.5 MCG INHALER) 10.2 Gm Inh, 2 EACH INH BIDR for 30 Days, #1 INH 1 Refill Two puffs two times a day. Prov:BALWINDER DIAMOND MD 12/09/16 Reported Medications Rivaroxaban 20 Mg (XARELTO 20 MG) 20 Mg Tablet 08/16/18 Fenofibrate,Micronized (FENOFIBRATE) 67 Mg Capsule 08/16/18 Gabapentin (GABAPENTIN) 600 Mg Tablet 08/16/18 Metoprolol Succinate (METOPROLOL SUCCINATE) 100 Mg Tab.er.24h 08/16/18 Insulin Degludec (Tresiba Flextouch U-100) 100 Unit/Ml (3 Ml) Insuln.pen 12/06/16 Canagliflozin (INVOKANA) 300 Mg Tablet, 150 MG PO DAILY 12/06/16 Digoxin (DIGOXIN) 125 Mcg Tablet, 125 MCG PO DAILY 07/04/14 Omeprazole (OMEPRAZOLE) 20 Mg Tablet.dr, 20 MG PO QDAY TAKE ONE TABLET BY MOUTH ONCE A DAY 07/03/14 Paroxetine Hcl (PAROXETINE HCL) 40 Mg Tablet, 1 TAB PO DAILY, #30 07/02/14 Atorvastatin Calcium (ATORVASTATIN CALCIUM) 40 Mg Tablet, 1 TAB PO DAILY, #90 07/02/14 Levothyroxine Sodium (LEVOTHYROXINE SODIUM) 88 Mcg Tablet, 1 TAB PO DAILY, #90 07/02/14 Allergies: Coded Allergies: pentazocine (Verified Allergy, Mild, NAUSEA/VOMITING, 09/29/18) Uncoded Allergies: STRAW LOU (Allergy, Severe, RESP PROBLEMS, 01/11/08) TAPE (Allergy, Mild, BLISTERS, 12/05/07) 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, BROTHER OR SISTER, FH: hepatic cirrhosis Hx Smoking: Yes Smoking Status: Former Smoker Exposure to Second Hand Smoke?: No Caffeine Intake: Soda Caffeine/Cups Per Day: 1/day Hx Alcohol Use: No Hx Substance Use Disorder: No Social Drug Use: Never Review of Systems All Systems Reviewed/Normal: Yes, Except as Noted Respiratory: Shortness of Breath Exam Vital Signs Vital Signs Date Time Temp Pulse Resp B/P (MAP) Pulse Ox O2 Delivery O2 Flow Rate FiO2 09/29/18 13:14 111 20 148/116 (127) 92 Oxy Mask 9.0 09/29/18 07:36 99.6 Neuro: No Gross deficits Cardiovascular: Regular Rate and Rhythm Respiratory: Other (Bilateral crackles) GI: Abd Soft and Non-Tender Extremities: No Edema Medical Decision Making Data Points Result Diagram: 09/29/18 0742 09/29/18 0742 Assessment and Plan Problems: (1) Acute exacerbation of chronic obstructive pulmonary disease (COPD) Status: Acute Assessment & Plan: She did present with increased shortness of breath, and has a prior history of COPD. Her CT scan showed small bilateral effusions and an interstitial pattern. She has been started on breathing treatment and steroids. An echocardiogram is also pending. (2) Diabetes mellitus Status: Chronic Assessment & Plan: She is on chronic treatment with insulin. She has been placed on sliding scale level #2. (3) Atrial fibrillation Status: Chronic Assessment & Plan: She is on chronic treatment with digoxin and Xarelto. (4) HTN (hypertension) Status: Chronic Assessment & Plan: She is on chronic treatment with metoprolol. (5) Hypothyroid Status: Chronic Assessment & Plan: She is on chronic treatment with Synthroid. (6) Obesity, morbid, BMI 50 or higher Status: Chronic Copies to: JUAN C CARRANZA MD ; Venous Thromboembolism Antithrombotics Is Pt On Any Antithrombotics?: Yes Exam Sepsis Risk: Possible Sepsis Risk Problem Qualifiers (1) Diabetes mellitus: Diabetes mellitus type: type 2 JUAN C SMITH DO Sep 29, 2018 13:55
[2018-09-29] MEDS: BUDESO/FORMOT 160/4.5 MCG 6 GM INH SCH (16:53)
[2018-09-29] MEDS: DICYCLOMINE HCL 10 MG CAP PO SCH ×2 (17:14→21:27)
[2018-09-29] MEDS: methylPREDNIS SUCC 125 MG/2ML IVP SCH ×2 (17:15→23:32)
[2018-09-29 17:21] VITALS: BP 205/115
[2018-09-29] MEDS ORDERED: cloNIDine HCL 0.1 MG TAB PO ONE (17:30)
[2018-09-29 18:31] VITALS: BP 140/108
[2018-09-29 23:27] VITALS: BP 162/90
[2018-09-30 02:48] VITALS: BP 172/92
[2018-09-30] MEDS: ALBUTEROL/IPRATROPIUM 3 ML NEB NEB SCH ×4 (05:15→17:07)
[2018-09-30] MEDS: BUDESO/FORMOT 160/4.5 MCG 6 GM INH SCH ×2 (05:15→17:07)
[2018-09-30] MEDS: LEVOTHYROXINE SOD 0.088 MG TAB PO SCH (05:46)
[2018-09-30] MEDS: methylPREDNIS SUCC 125 MG/2ML IVP SCH (05:46)
[2018-09-30 06:30] LABS: PLATELET COUNT, AUTOMATED 217 K/uL (150-450)
[2018-09-30 07:38] VITALS: BP 136/120
[2018-09-30] MEDS: INSULIN HUM LISPRO 100 UN/ML 3 ML VIAL SUBQ PRN ×4 (07:55→20:16)
[2018-09-30] MEDS ORDERED: CANAGLIFLOZIN 300 MG TABLET PO SCH (09:00)
[2018-09-30] MEDS: PARoxetine HCL 20 MG TAB PO SCH (09:11)
[2018-09-30 09:12] VITALS: Ht 157.5 cm; Wt 118.0 kg
[2018-09-30] MEDS: RIVAROXABAN 10 MG TAB PO SCH (09:12)
[2018-09-30] MEDS: ATORVASTATIN 40 MG TAB PO SCH (09:12)
[2018-09-30] MEDS: DIGOXIN 0.125 MG TAB PO SCH (09:12)
[2018-09-30] MEDS: DICYCLOMINE HCL 10 MG CAP PO SCH ×4 (09:12→20:18)
[2018-09-30] MEDS: ACETAMINOPHEN 500 MG TAB PO PRN ×3 (10:45→20:18)
[2018-09-30] MEDS: PAROXETINE HCL 10 MG TABLET PO SCH (10:46)
[2018-09-30] MEDS ORDERED: INFLUENZA VIRUS VAC 0.5ML SYR IM ONLY ONE (13:40)
[2018-09-30] MEDS: GABAPENTIN 300 MG CAP PO SCH ×2 (14:22→20:18)
--- NOTE | 2018-09-30 15:15 | Medical Nutrition Therapy ---
Nutritional Education Nutrition Education Topic: Diabetic Nutrition Learning Readiness: Interested Teaching Methods: Discussion, Handout Response to Teaching: Verbalize understanding Teaching Recipient: Patient, Significant Other Nutrition Counseling: Provided simiplified diabetic diet eduction. Reviewed high CHO foods. Encouaged to to limit CHO to 2-3 serving or 1c CHO/meal. Nutrition Monitoring & Eval RD Patient Assessment Time: [address] Assessment Type: RD Education Patient Nutrition Acuity: 3-Mild Follow Up Date: October 05, 2018 Nutritional Comment: 09/30 provided diet education for T2DM SHERLEY SANCHEZ September 30, 2018 15:14
--- NOTE | 2018-09-30 18:51 | Hospitalist Progress Note ---
Subjective Progress Notes Subjective 78F admitted for dyspnea. DEVON overnight, her O2 needs have been imporving with breathing treatments. Patient Complains of: Respiratory: Shortness of Breath Physical Exam Vital Signs Date Time Temp Pulse Resp B/P (MAP) Pulse Ox O2 Delivery O2 Flow Rate FiO2 09/30/18 17:10 135 18 09/30/18 17:02 91 High-Flow Nasal Cannula 5.0 09/30/18 07:38 97.6 136/120 (125) Intake and Output 09/30/18 07:00 Intake Total 840 ml Balance 840 ml Intake Oral 840 ml # Voids 4 General Appearance: Alert, Awake, No Acute Distress Cardiovascular: Other (irregularly irregular) Respiratory: Other (decreased breathsounds b/l) GI: Soft and Non-Tender Extremities: Soft and Non Tender, Warm, Pulses, Perfused, Edema Result Diagram: 09/30/1860009/30/18600 Monitor Interpretation: Atrial Fibrillation Assessment and Plan Problems: (1) Acute exacerbation of chronic obstructive pulmonary disease (COPD) Status: Acute Assessment & Plan: She did present with increased shortness of breath, and has a prior history of COPD. Her CT scan showed small bilateral effusions and an interstitial pattern. She has been started on breathing treatment and steroids. An echocardiogram is also pending. (2) Diabetes mellitus Status: Chronic Assessment & Plan: She is on chronic treatment with insulin. She has been placed on sliding scale level #2. (3) Atrial fibrillation Status: Chronic Assessment & Plan: She is on chronic treatment with digoxin and Xarelto. (4) HTN (hypertension) Status: Chronic Assessment & Plan: She is on chronic treatment with metoprolol. (5) Hypothyroid Status: Chronic Assessment & Plan: She is on chronic treatment with Synthroid. (6) Obesity, morbid, BMI 50 or higher Status: Chronic Exam Sepsis Risk: No Definite Risk Problem Qualifiers (1) Diabetes mellitus: Diabetes mellitus type: type 2 OMID THRASHER DO September 30, 2018 18:50
[2018-09-30 18:52] VITALS: BP 150/76
[2018-09-30] MEDS: INSULIN GLARGINE 100 U/ML 3 ML PEN SUBQ SCH (20:16)
[2018-09-30] MEDS: [UNRECOGNIZED DRUG - OTHER] TP SCH (21:00)
[2018-10-01] MEDS: LEVOTHYROXINE SOD 0.088 MG TAB PO SCH (05:39)
[2018-10-01] MEDS: BUDESO/FORMOT 160/4.5 MCG 6 GM INH SCH ×2 (05:43→16:37)
[2018-10-01] MEDS: ALBUTEROL/IPRATROPIUM 3 ML NEB NEB SCH ×4 (05:43→16:36)
[2018-10-01 07:57] VITALS: BP 132/78
[2018-10-01] MEDS: METOPROLOL SUCC XL 50 MG TABCR 50 MG TAB.ER.24H PO SCH (08:34)
--- NOTE | 2018-10-01 08:58 | EKG ---
FACILITY: [facility] PATIENT NAME: CIELO OLIVA : [id number] MR: [id number] V: [id number] EXAM DATE: ORDERING PHYSICIAN: NATALIA KIRKPATRICK TECHNOLOGIST: RICARDO Test Reason : TACHY Blood Pressure : / mmHG Vent. Rate : 143 BPM Atrial Rate : 174 BPM P-R Int : 000 ms QRS Dur : 080 ms QT Int : 316 ms P-R-T Axes : 000 -17 189 degrees QTc Int : 487 ms Atrial fibrillation with rapid ventricular response Left axis ST and T wave abnormality, consider lateral ischemia or digitalis effect Abnormal ECG Confirmed by BALWINDER DIAMOND ([id number]) on 10/01/2018 4:19:07 PM Referred By: DARA Confirmed By:BALWINDER DIAMOND
[2018-10-01] MEDS: DICYCLOMINE HCL 10 MG CAP PO SCH ×4 (09:19→20:18)
[2018-10-01] MEDS: PARoxetine HCL 20 MG TAB PO SCH (09:20)
[2018-10-01] MEDS: ATORVASTATIN 40 MG TAB PO SCH (09:20)
[2018-10-01] MEDS: DIGOXIN 0.125 MG TAB PO SCH (09:20)
[2018-10-01] MEDS: RIVAROXABAN 10 MG TAB PO SCH (09:20)
[2018-10-01] MEDS: GABAPENTIN 300 MG CAP PO SCH ×3 (09:20→20:18)
[2018-10-01] MEDS: PAROXETINE HCL 10 MG TABLET PO SCH (09:20)
[2018-10-01] MEDS: predniSONE 20 MG TAB PO SCH (09:20)
[2018-10-01] MEDS: [UNRECOGNIZED DRUG - OTHER] TP SCH ×2 (09:23→20:17)
[2018-10-01] MEDS ORDERED: METOPROLOL TART 5 MG/5 ML VIAL IVP ONE (09:35)
[2018-10-01 09:44] VITALS: BP 138/72
--- NOTE | 2018-10-01 11:07 | Hospitalist Progress Note ---
Subjective Progress Notes Subjective She reports some chest pain/tightness "especially when I cough". Her HR has been significantly elevated. Physical Exam Vital Signs Date Time Temp Pulse Resp B/P (MAP) Pulse Ox O2 Delivery O2 Flow Rate FiO2 10/01/18 10:49 106 16 10/01/18 10:41 94 High-Flow Nasal Cannula 6.0 10/01/18 09:44 138/72 (94) 10/01/18 07:57 98.1 Intake and Output 10/01/18 07:00 Intake Total 1840 ml Balance 1840 ml Intake Oral 1840 ml # Voids 3 # Bowel Movements 1 General Appearance: Alert, Awake Cardiovascular: Other (Irregular tachycardic) Respiratory: Other (few rales at bases/mid-lung morrow) Chest: No Tenderness GI: Soft and Non-Tender (obese/BS present) Extremities: Warm, Perfused, Edema (trace) Psych: Alert & Oriented X3 Result Diagram: 09/30/18 0601 09/30/18 06 Monitor Interpretation: Atrial Fibrillation Assessment and Plan Problems: (1) Acute exacerbation of chronic obstructive pulmonary disease (COPD) Status: Acute Assessment & Plan: She did present with increased shortness of breath. She has a prior history of a-fib, preserved EF, and COPD. Her CT scan showed small bilateral effusions and an interstitial pattern. She was started on breathing treatment and steroids. Repeat echocardiogram shows EF in 55-60% range, decreased RV function, moderate LVH. Suspect her dyspnea may be related to both her underlying COPD and cardiac disease. (2) Diabetes mellitus Status: Chronic Assessment & Plan: She is on chronic treatment with insulin. She has been placed on sliding scale level #2. (3) Atrial fibrillation Status: Chronic Assessment & Plan: She has been on chronic treatment with metoprolol, digoxin, and Xarelto. Will need to resume her beta shala to help with rate control. This may help with her chest discomfort as well as dyspnea. (4) HTN (hypertension) Status: Chronic Assessment & Plan: She has been on chronic treatment with metoprolol, which will be resumed. (5) Hypothyroid Status: Chronic Assessment & Plan: She is on chronic treatment with Synthroid. (6) Obesity, morbid, BMI 50 or higher Status: Chronic (7) Chest discomfort Status: Acute Assessment & Plan: I suspect it may be related to her a-fib with RVR. Will check EKG, serial troponins. Will work on rate control of her a-fib. Monitor closely. Further work-up/treatment pending results. Exam Sepsis Risk: No Definite Risk Problem Qualifiers (1) Diabetes mellitus: Diabetes mellitus type: type 2 BALWINDER DIAMOND MD October 01, 2018 11:07
[2018-10-01] MEDS ORDERED: ALLO-119 PO (11:52)
[2018-10-01] MEDS ORDERED: INSU300I SUBQ (11:52)
[2018-10-01] MEDS ORDERED: LISI-362 PO (11:52)
[2018-10-01] MEDS: INSULIN HUM LISPRO 100 UN/ML 3 ML VIAL SUBQ PRN ×3 (11:55→20:26)
[2018-10-01] MEDS: ACETAMINOPHEN 500 MG TAB PO PRN ×2 (11:56→20:18)
[2018-10-01] MEDS: GUAIFENESIN/DEXTROMETHORPHAN 5 ML PO PRN ×2 (11:56→21:30)
[2018-10-01 11:58] VITALS: BP 152/90
[2018-10-01 19:45] VITALS: BP 130/78
[2018-10-01] MEDS: INSULIN GLARGINE 100 U/ML 3 ML PEN SUBQ SCH (20:18)
[2018-10-02] MEDS: ALBUTEROL/IPRATROPIUM 3 ML NEB NEB SCH ×5 (05:30→17:52)
[2018-10-02] MEDS: BUDESO/FORMOT 160/4.5 MCG 6 GM INH SCH ×3 (05:30→17:52)
[2018-10-02] MEDS: LEVOTHYROXINE SOD 0.088 MG TAB PO SCH (05:53)
[2018-10-02 06:25] LABS: PLATELET COUNT, AUTOMATED 222 K/uL (150-450)
[2018-10-02 07:07] VITALS: BP 162/99
[2018-10-02] MEDS: INSULIN HUM LISPRO 100 UN/ML 3 ML VIAL SUBQ PRN ×4 (07:57→20:55)
[2018-10-02] MEDS: DICYCLOMINE HCL 10 MG CAP PO SCH ×4 (08:50→20:55)
[2018-10-02] MEDS: [UNRECOGNIZED DRUG - OTHER] TP SCH ×2 (08:50→20:56)
[2018-10-02] MEDS: METOPROLOL SUCC XL 50 MG TABCR 50 MG TAB.ER.24H PO SCH (08:50)
[2018-10-02] MEDS: GABAPENTIN 300 MG CAP PO SCH ×3 (08:50→20:54)
[2018-10-02] MEDS: PAROXETINE HCL 10 MG TABLET PO SCH (08:54)
[2018-10-02] MEDS: ACETAMINOPHEN 500 MG TAB PO PRN ×3 (08:54→20:54)
[2018-10-02] MEDS: DIGOXIN 0.125 MG TAB PO SCH (08:54)
[2018-10-02] MEDS: ATORVASTATIN 40 MG TAB PO SCH (08:54)
[2018-10-02] MEDS: PARoxetine HCL 20 MG TAB PO SCH (08:54)
[2018-10-02] MEDS: RIVAROXABAN 10 MG TAB PO SCH (08:55)
[2018-10-02] MEDS: predniSONE 20 MG TAB PO SCH (08:55)
[2018-10-02] MEDS ORDERED: FUROSEMIDE 40 MG/4 ML VIAL IVP ONE (09:30)
[2018-10-02 10:36] VITALS: BP 136/80
--- NOTE | 2018-10-02 13:49 | NUR ---
Physical Therapy Impression PT eval complete. Pt safe for DC when medically appropriate. PT to see Pt while at [facility] to prevent functional decline. Physical Therapy Goals 1. SBA bed mobility. 2. SBA transfers. 3. SBA gait x 50' with RW. Patient's Goals
--- NOTE | 2018-10-02 15:24 | Hospitalist Progress Note ---
Subjective Progress Notes Subjective 78F admitted for SOB. DEVON overnight, near baseline O2, trial diuresis and plan d/c tomorrow. Physical Exam Vital Signs Date Time Temp Pulse Resp B/P (MAP) Pulse Ox O2 Delivery O2 Flow Rate FiO2 10/02/18 13:18 90 18 10/02/18 13:11 93 High-Flow Nasal Cannula 6.0 10/02/18 10:36 98.3 136/80 (98) Intake and Output 10/02/18 07:00 Intake Total 1042 ml Balance 1042 ml Intake Oral 1042 ml # Voids 6 # Bowel Movements 2 General Appearance: Alert, Awake, No Acute Distress Neuro: No Gross deficits Cardiovascular: Normal Rhythm & Peripheral Pulses Respiratory: No Respiratory Distress Extremities: Soft and Non Tender, Warm, Pulses, Perfused Result Diagram: 10/02/18 0559 10/02/18 0559 Monitor Interpretation: Atrial Fibrillation Assessment and Plan Problems: (1) Acute exacerbation of chronic obstructive pulmonary disease (COPD) Status: Acute Assessment & Plan: She did present with increased shortness of breath. She has a prior history of a-fib, preserved EF, and COPD. Her CT scan showed small bilateral effusions and an interstitial pattern. She was started on breathing treatment and steroids. Repeat echocardiogram shows EF in 55-60% range, decreased RV function, moderate LVH. Suspect her dyspnea may be related to both her underlying COPD and cardiac disease. Trial diuresis today anticipate discharge tomorrow. (2) Diabetes mellitus Status: Chronic Assessment & Plan: She is on chronic treatment with insulin. She has been placed on sliding scale level #2. (3) Atrial fibrillation Status: Chronic Assessment & Plan: She has been on chronic treatment with metoprolol, digoxin, and Xarelto. (4) HTN (hypertension) Status: Chronic Assessment & Plan: She has been on chronic treatment with metoprolol. (5) Hypothyroid Status: Chronic Assessment & Plan: She is on chronic treatment with Synthroid. (6) Obesity, morbid, BMI 50 or higher Status: Chronic (7) Chest discomfort Status: Acute Assessment & Plan: EKG, serial troponins were negative. Improved with rate control. 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
[2018-10-02 15:36] VITALS: BP 152/90
[2018-10-02 20:12] VITALS: BP 144/82
[2018-10-02] MEDS ORDERED: INSULIN GLARGINE 100 U/ML 3 ML PEN SUBQ SCH (21:00)
[2018-10-02 23:03] VITALS: BP 132/74
[2018-10-03] MEDS: ALBUTEROL/IPRATROPIUM 3 ML NEB NEB SCH ×2 (05:29→09:25)
[2018-10-03] MEDS: BUDESO/FORMOT 160/4.5 MCG 6 GM INH SCH (05:29)
[2018-10-03] MEDS: LEVOTHYROXINE SOD 0.088 MG TAB PO SCH (05:42)
[2018-10-03] MEDS: DICYCLOMINE HCL 10 MG CAP PO SCH (08:19)
[2018-10-03] MEDS: RIVAROXABAN 10 MG TAB PO SCH (08:20)
[2018-10-03] MEDS: DIGOXIN 0.125 MG TAB PO SCH (08:20)
[2018-10-03] MEDS: PARoxetine HCL 20 MG TAB PO SCH (08:20)
[2018-10-03] MEDS: PAROXETINE HCL 10 MG TABLET PO SCH (08:20)
[2018-10-03] MEDS: ATORVASTATIN 40 MG TAB PO SCH (08:21)
[2018-10-03] MEDS: GABAPENTIN 300 MG CAP PO SCH (08:21)
[2018-10-03] MEDS: METOPROLOL SUCC XL 50 MG TABCR 50 MG TAB.ER.24H PO SCH (08:21)
[2018-10-03] MEDS: ACETAMINOPHEN 500 MG TAB PO PRN ×2 (08:21→11:50)
[2018-10-03] MEDS: predniSONE 20 MG TAB PO SCH (08:21)
[2018-10-03] MEDS: INSULIN HUM LISPRO 100 UN/ML 3 ML VIAL SUBQ PRN ×2 (08:22→11:50)
[2018-10-03] MEDS: [UNRECOGNIZED DRUG - OTHER] TP SCH (08:22)
[2018-10-03 09:21] VITALS: BP 106/63
[2018-10-03] MEDS ORDERED: PRED-1 PO (10:04)
[2018-10-03] MEDS ORDERED: INSU100I30 SUBQ (10:04)
--- NOTE | 2018-10-03 10:07 | Hospitalist Depart ---
Discharge Summary Reason for Hosp/Final Diag: (1) Acute exacerbation of chronic obstructive pulmonary disease (COPD) Status: Acute Hospital Course & Plan: She did present with increased shortness of breath. Her CT scan showed small bilateral effusions and an interstitial pattern. She was started on breathing treatment and steroids. Her breathing has improved and she is at her baseline oxygen requirement. She will complete a prednisone taper. (2) Diabetes mellitus Status: Chronic Hospital Course & Plan: She is on chronic treatment with insulin. (3) Atrial fibrillation Status: Chronic Hospital Course & Plan: She has been on chronic treatment with metoprolol, digoxin, and Xarelto. (4) HTN (hypertension) Status: Chronic Hospital Course & Plan: She has been on chronic treatment with metoprolol. (5) Hypothyroid Status: Chronic Hospital Course & Plan: She is on chronic treatment with Synthroid. (6) Obesity, morbid, BMI 50 or higher Status: Chronic (7) Chest discomfort Status: Acute Hospital Course & Plan: EKG, serial troponins were negative. Improved with rate control. Departure Latest Vital Signs Vital Signs 10/03/18 10/03/18 09:21 09:31 Temp 98.2 Pulse 92 Resp 18 B/P (MAP) 106/63 (77) Weight (Pounds): 260 Weight (Ounces): 4.0 Result Diagram: 10/02/18 0559 10/03/18 0606 Condition: Improved Discharge: Home, Self Care Discharge Instructions Home Meds Active Scripts Prednisone 10 Mg Tab (PREDNISONE 10 MG TAB) 10 Mg Tablet, 10 MG PO DIRECTED, #30 TAB Take 4 tab daily x 3 days, then 3 tab daily x 3 days, then 2 tab daily x 3 days, then 1 tab daily x 3 days. Prov:JUAN C SMITH DO 10/03/18 Insulin Glargine 100 Un/Ml Pen (LANTUS SOLOSTAR PEN) 100 Unit/1 Ml Insuln.pen, 20 UNIT SUBQ QHS, #1 PEN Prov:JUAN C SMITH DO 10/03/18 Dicyclomine Hcl (DICYCLOMINE HCL) 20 Mg Tablet, 20 MG PO QID for diarrhea, #20 TAB 0 Refills Prov:SANTIAGO SEGURA MD 08/20/18 Budesonide/Formoterol Fumarate (SYMBICORT 160-4.5 MCG INHALER) 10.2 Gm Inh, 2 EACH INH BIDR for 30 Days, #1 INH 1 Refill Two puffs two times a day. Prov:BALWINDER DIAMOND MD 12/09/16 Reported Medications Lisinopril (LISINOPRIL) 10 Mg Tablet, 10 MG PO QDAY, TAB 10/01/18 Allopurinol (ZYLOPRIM) 300 Mg Tablet, 300 MG PO QDAY, TAB 10/01/18 Rivaroxaban 20 Mg (XARELTO 20 MG) 20 Mg Tablet, 1 TAB PO QDAY 08/16/18 Fenofibrate,Micronized (FENOFIBRATE) 67 Mg Capsule, 1 CAP PO QDAY with food 08/16/18 Gabapentin (GABAPENTIN) 600 Mg Tablet, 2 TAB PO TID 08/16/18 Metoprolol Succinate (METOPROLOL SUCCINATE) 100 Mg Tab.er.24h, 2 TAB PO QDAY 08/16/18 Canagliflozin (INVOKANA) 300 Mg Tablet, 1 TAB PO DAILY 12/06/16 Digoxin (DIGOXIN) 125 Mcg Tablet, 125 MCG PO DAILY 07/04/14 Omeprazole (OMEPRAZOLE) 20 Mg Tablet.dr, 20 MG PO QDAY TAKE ONE TABLET BY MOUTH ONCE A DAY 07/03/14 Paroxetine Hcl (PAROXETINE HCL) 40 Mg Tablet, 1 TAB PO DAILY, #30 07/02/14 Atorvastatin Calcium (ATORVASTATIN CALCIUM) 40 Mg Tablet, 1 TAB PO DAILY, #90 07/02/14 Levothyroxine Sodium (LEVOTHYROXINE SODIUM) 88 Mcg Tablet, 1 TAB PO DAILY, #90 07/02/14 Discontinued Reported Medications Insulin Glargine,Hum.rec.anlog (Nichole Yung) 300 Unit/1 Ml Insuln.pen, 160 UNITS SUBQ QDAY 10/01/18 Insulin Degludec (Tresiba Flextouch U-100) 100 Unit/Ml (3 Ml) Insuln.pen 12/06/16 Discontinued Scripts Ondansetron Hcl (ZOFRAN) 4 Mg Tablet, 4 MG PO Q8H for Nausea, #15 TAB 0 Refills Prov:SANTIAGO SEGURA MD 08/20/18 Diet: Diabetic Activity: As Tolerated Copies to: JUAN C CARRANZA MD ; Venous Thromboembolism Antithrombotics Is Pt On Any Antithrombotics?: Yes Problem Qualifiers (1) Diabetes mellitus: Diabetes mellitus type: type 2 (2) Hypothyroid: 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
== END 2018-10-03 13:25 | disposition home or self-care (01) | DRG 191 ==
LOC: ER 07:47 → MED 11:31
PROVIDERS: ADMIT Family Medicine; ATTEND Family Medicine
DX: J44.1 Chronic obstructive pulmonary disease with (acute) exacerbation (principal); Z68.43 Body mass index [BMI] 50.0-59.9, adult; E11.9 Type 2 diabetes mellitus without complications; I48.2 Chronic atrial fibrillation; I10 Essential (primary) hypertension; E66.01 Morbid (severe) obesity due to excess calories; E03.9 Hypothyroidism, unspecified; E03.4 Atrophy of thyroid (acquired); I25.10 Atherosclerotic heart disease of native coronary artery without angina pectoris; M1A.9XX0 Chronic gout, unspecified, without tophus (tophi); K57.90 Diverticulosis of intestine, part unspecified, without perforation or abscess without bleeding; Z79.4 Long term (current) use of insulin; Z88.8 Allergy status to other drugs, medicaments and biological substances; Z79.01 Long term (current) use of anticoagulants; Z98.1 Arthrodesis status
CPT/HCPCS: 36415; 36416; 71045; 71275; 82040; 82247; 82310; 82374; 82435; 82565; 82947; 82948; 83880; 84075; 84132; 84155; 84295; 84450; 84460; 84484; 84520; 85025; 85379; 85610; 85730; 93005; 93306; 94640; 94667; 94668; 96374; 97162; 97165; 99285; J1815; J1940; J2930; J7050; J7512; J7613; Q9967

== ENCOUNTER → 2018-09-29 | Outpatient (CLI) | payer MEDICARE ==
[~2018-09-29] MED LIST changes: +ALLO-119 PO; -FENO67CA3; -GABA-533; +INSU100I30 SUBQ; +INSU300I SUBQ; -METO100T20; +PRED-1 PO; -RIVA20TA; +RIVA20TA PO
[2018-09-30 09:12] VITALS: BMI 47.5
== END ==
LOC: AMB 06:54
PROVIDERS: ATTEND Nurse Practitioner
DX: R06.02 Shortness of breath (principal); F41.9 Anxiety disorder, unspecified
CPT/HCPCS: A0425; A0427

== ENCOUNTER 2018-10-15 21:11 | Inpatient (IN) | payer MEDICARE ==
[2018-09-30 09:12] VITALS: Ht 157.5 cm; Wt 122.5 kg
[~2018-10-15] VITALS: Ht 157.5 cm; Wt 122.5 kg
[~2018-10-15 21:11] MED LIST changes: -ACET-1966 PO; -DEXT30SU27 PO; -FENO48TA15 PO; -FLUT16SP19 NS; -FURO40TA35 PO; -LEVO88TA43 PO; -NOR25 PO
[2018-10-15] MEDS ORDERED: NS(*) 0.9% 1000 ML BAG 1,000 ML IV ONE ×2 (21:13→21:16)
--- NOTE | 2018-10-15 21:13 | ER Report ---
History and Physical Time Seen By MD: 21:13 HPI/ROS CHIEF COMPLAINT: Respiratory distress HISTORY OF PRESENT ILLNESS: 78-year-old female with a history of COPD, type II diabetes, atrial fibrillation brought in by EMS from home with increasing s hortness of breath all day long. Tonight she is informed that respiratory failure. She's brought in by EMS after noting a pulse ox is 72% on her usual O2 at home. Patient received 3 nebulizer treatments in route by EMS. Her saturations are hovering at 90% on arrival to the ER on 100% nonrebreather mask. She was recently admitted from or a COPD exacerbation. At that time. She has CTA angiogram performed on that previous admission which was negative for PE. Patient is on Xarelto. Patient initially refused intubation. She was placed on BiPAP. C REVIEW OF SYSTEMS: Respiratory: As above Cardiovascular: No chest pain, no palpitations. Gastrointestinal: No vomiting, no abdominal pain. Musculoskeletal: No back pain. Allergies: Coded Allergies: pentazocine (Verified Allergy, Mild, NAUSEA/VOMITING, 10/15/18) Uncoded Allergies: STRAW LOU (Allergy, Severe, RESP PROBLEMS, 01/11/08) TAPE (Allergy, Mild, BLISTERS, 12/05/07) Home Meds Active Scripts Prednisone 10 Mg Tab (PREDNISONE 10 MG TAB) 10 Mg Tablet, 10 MG PO DIRECTED, #30 TAB Take 4 tab daily x 3 days, then 3 tab daily x 3 days, then 2 tab daily x 3 days, then 1 tab daily x 3 days. Prov:JUAN C SMITH DO 10/03/18 Insulin Glargine 100 Un/Ml Pen (LANTUS SOLOSTAR PEN) 100 Unit/1 Ml Insuln.pen, 20 UNIT SUBQ QHS, #1 PEN Prov:JUAN C SMITH DO 10/03/18 Dicyclomine Hcl (DICYCLOMINE HCL) 20 Mg Tablet, 20 MG PO QID for diarrhea, #20 TAB 0 Refills Prov:SANTIAGO SEGURA MD 08/20/18 Budesonide/Formoterol Fumarate (SYMBICORT 160-4.5 MCG INHALER) 10.2 Gm Inh, 2 EACH INH BIDR for 30 Days, #1 INH 1 Refill Two puffs two times a day. Prov:BALWINDER DIAMOND MD 12/09/16 Reported Medications Lisinopril (LISINOPRIL) 10 Mg Tablet, 10 MG PO QDAY, TAB 10/01/18 Allopurinol (ZYLOPRIM) 300 Mg Tablet, 300 MG PO QDAY, TAB 10/01/18 Rivaroxaban 20 Mg (XARELTO 20 MG) 20 Mg Tablet, 1 TAB PO QDAY 08/16/18 Fenofibrate,Micronized (FENOFIBRATE) 67 Mg Capsule, 1 CAP PO QDAY with food 08/16/18 Gabapentin (GABAPENTIN) 600 Mg Tablet, 2 TAB PO TID 08/16/18 Metoprolol Succinate (METOPROLOL SUCCINATE) 100 Mg Tab.er.24h, 2 TAB PO QDAY 08/16/18 Canagliflozin (INVOKANA) 300 Mg Tablet, 1 TAB PO DAILY 12/06/16 Digoxin (DIGOXIN) 125 Mcg Tablet, 125 MCG PO DAILY 07/04/14 Omeprazole (OMEPRAZOLE) 20 Mg Tablet.dr, 20 MG PO QDAY TAKE ONE TABLET BY MOUTH ONCE A DAY 07/03/14 Paroxetine Hcl (PAROXETINE HCL) 40 Mg Tablet, 1 TAB PO DAILY, #30 07/02/14 Atorvastatin Calcium (ATORVASTATIN CALCIUM) 40 Mg Tablet, 1 TAB PO DAILY, #90 07/02/14 Levothyroxine Sodium (LEVOTHYROXINE SODIUM) 88 Mcg Tablet, 1 TAB PO DAILY, #90 07/02/14 Past Medical/Surgical History Problems: (1) CAD (coronary artery disease) Status: Chronic (2) Gout Status: Chronic (3) Diverticulosis Status: Chronic (4) Nephrolithiasis Status: Chronic (5) Obesity, morbid, BMI 50 or higher Status: Chronic (6) HTN (hypertension) Status: Chronic (7) Atrial fibrillation Status: Chronic (8) Diabetes mellitus Status: Chronic (9) Hypothyroid Status: Chronic (10) S/P knee replacement Status: Resolved (11) S/P lumbar spinal fusion Status: Resolved Reviewed Nurses Notes: Yes Old Medical Records Reviewed: Yes Hx Smoking: Yes Smoking Status: Former Smoker Exposure to Second Hand Smoke?: No Hx Substance Use Disorder: No Hx Alcohol Use: No Constitutional Vital Sign - Last 24 Hours 10/15/18 10/15/18 10/15/18 10/15/18 21:11 21:11 21:13 21:14 Temp 99.4 Pulse 129 131 151 137 Resp 44 40 33 30 B/P (MAP) 152/106 Pulse Ox 97 96 95 O2 Delivery Bi-PAP 10/15/18 10/15/18 10/15/18 10/15/18 21:15 21:17 21:19 21:21 Pulse 148 154 146 154 Resp 28 34 38 41 Pulse Ox 89 90 89 83 10/15/18 10/15/18 10/15/18 10/15/18 21:23 21:25 21:27 21:28 Pulse 161 150 136 Resp 32 36 38 B/P (MAP) 180/118 (138) Pulse Ox 82 88 88 10/15/18 10/15/18 10/15/18 10/15/18 21:29 21:31 21:33 21:35 Pulse 136 135 132 Resp 36 34 35 Pulse Ox 90 90 96 FiO2 60.0 10/15/18 10/15/18 10/15/18 10/15/18 21:35 21:37 21:39 21:40 Pulse 139 132 127 Resp 43 51 61 B/P (MAP) 161/118 (132) 155/111 (126) Pulse Ox 96 95 94 10/15/18 10/15/18 10/15/18 10/15/18 21:41 21:43 21:45 21:47 Pulse 127 124 132 126 Resp 29 43 50 91 B/P (MAP) 144/110 (121) Pulse Ox 94 95 94 94 10/15/18 10/15/18 10/15/18 10/15/18 21:49 21:50 21:51 21:53 Pulse 121 131 118 Resp 31 40 19 B/P (MAP) 142/98 (113) Pulse Ox 95 94 93 10/15/18 10/15/18 10/15/18 10/15/18 21:58 22:00 22:02 22:04 Pulse 125 133 114 123 Resp 53 37 63 44 B/P (MAP) 131/87 (102) Pulse Ox 92 92 92 94 10/15/18 10/15/18 10/15/18 10/15/18 22:05 22:06 22:08 22:10 Pulse 132 125 126 Resp 30 29 27 B/P (MAP) 130/110 (117) 118/90 (99) Pulse Ox 93 92 92 10/15/18 10/15/18 10/15/18 10/15/18 22:12 22:14 22:15 22:16 Pulse 124 124 117 Resp 27 40 43 B/P (MAP) 126/68 (87) Pulse Ox 92 94 95 10/15/18 10/15/18 10/15/18 10/15/18 22:18 22:20 22:22 22:24 Pulse 133 123 125 123 Resp 45 28 15 32 B/P (MAP) 123/81 (95) Pulse Ox 94 94 94 95 10/15/18 10/15/18 10/15/18 10/15/18 22:25 22:26 22:28 22:30 Pulse 124 118 121 Resp 34 25 31 B/P (MAP) 125/94 (104) Pulse Ox 95 96 95 10/15/18 10/15/18 10/15/18 10/15/18 22:35 22:40 22:45 22:50 Pulse 114 130 149 119 Resp 28 48 27 35 B/P (MAP) 101/77 (85) Pulse Ox 93 93 91 90 10/15/18 10/15/18 10/15/18 10/15/18 22:55 23:00 23:05 23:10 Pulse 124 121 120 131 Resp 45 18 25 27 B/P (MAP) 99/68 (78) Pulse Ox 91 90 93 94 Physical Exam General Appearance: The patient is alert, has no immediate need for airway protection and no current signs of toxicity. Severe respiratory distress, 1-2 word dyspnea, respiratory rate in the mid 30s. Saturations at 90% on 100% nonrebreather. Gross wheezing throughout lung morrow. She is cool and clammy HEENT: Pupils equal and round no injection. Oropharynx with dry mucous membranes Respiratory: Chest is non tender, expiratory wheezing throughout lung morrow, no rales appreciated Cardiac: irregular rate and rhythm, distant heart sounds Gastrointestinal: Abdomen is soft and non tender, no masses, bowel sounds normal. Musculoskeletal: Neck: Neck is supple and non tender. Extremities have full range of motion and are non tender. 1+ edema bilaterally Skin: No rashes or lesions. DIFFERENTIAL DIAGNOSIS: After history and physical exam differential diagnosis was considered for shortness of breath including but not limited to pulmonary infectious process, COPD, asthma, pulmonary embolus and congestive heart failure. Medical Decision Making Data Points Result Diagram: 10/15/18211610/15/182116 Laboratory Hematology Test 10/15/18 21:17 10/15/18 21:26 Red Blood Count 4.46 M/uL (4.17-5.56) Mean Corpuscular Volume 93.1 fL (80.0-96.0) Mean Corpuscular Hemoglobin 29.2 pg (26.0-33.0) Mean Corpuscular Hemoglobin Concent 31.4 g/dL (32.0-36.0) Red Cell Distribution Width 15.6 % (11.5-14.5) Mean Platelet Volume 8.2 fL (7.2-11.1) Neutrophils (%) (Auto) 83.5 % (39.4-72.5) Lymphocytes (%) (Auto) 10.2 % (17.6-49.6) Monocytes (%) (Auto) 5.0 % (4.1-12.4) Eosinophils (%) (Auto) 0.8 % (0.4-6.7) Basophils (%) (Auto) 0.5 % (0.3-1.4) Nucleated RBC Relative Count (auto) 0.1 /100WBC Neutrophils # (Auto) 12.7 K/uL (2.0-7.4) Lymphocytes # (Auto) 1.5 K/uL (1.3-3.6) Monocytes # (Auto) 0.8 K/uL (0.3-1.0) Eosinophils # (Auto) 0.1 K/uL (0.0-0.5) Basophils # (Auto) 0.1 K/uL (0.0-0.1) Nucleated RBC Absolute Count (auto) 0.01 K/uL D-Dimer Quantitative (PE/DVT) 1.58 ug/ml (0-0.50) Sodium Level 141 mmol/L (137-145) Potassium Level 4.7 mmol/L (3.5-5.0) Chloride Level 103 mmol/L (98-107) Carbon Dioxide Level 30 mmol/L (22-31) Blood Urea Nitrogen 17 mg/dl (7-18) Creatinine 1.20 mg/dl (0.52-1.04) Glomerular Filtration Rate Calc 43.6 Random Glucose 309 mg/dl (75-110) Lactate 3.2 mmol/L (0.7-2.1) Calcium Level 8.6 mg/dl (8.4-10.2) Total Bilirubin 1.0 mg/dl (0.2-1.3) Aspartate Amino Transf (AST/SGOT) 39 U/L (0-35) Alanine Aminotransferase (ALT/SGPT) 35 U/L (0-56) Alkaline Phosphatase 79 U/L (0-126) Troponin I < 0.012 ng/ml Total Protein 6.2 g/dl (6.3-8.2) Albumin 3.6 g/dl (3.5-5.0) B-Type Natriuretic Peptide 179 pg/ml (0-100) Digoxin Level < 0.4 ng/ml Digoxin Last Dose Date unk Digoxin Last Dose Time unk Chemistry Test 10/15/18 21:17 10/15/18 21:26 White Blood Count 15.2 k/uL (4.5-11.0) Red Blood Count 4.46 M/uL (4.17-5.56) Hemoglobin 13.0 g/dL (12.0-16.0) Hematocrit 41.5 % (34.0-47.0) Mean Corpuscular Volume 93.1 fL (80.0-96.0) Mean Corpuscular Hemoglobin 29.2 pg (26.0-33.0) Mean Corpuscular Hemoglobin Concent 31.4 g/dL (32.0-36.0) Red Cell Distribution Width 15.6 % (11.5-14.5) Platelet Count 264 K/uL (150-450) Mean Platelet Volume 8.2 fL (7.2-11.1) Neutrophils (%) (Auto) 83.5 % (39.4-72.5) Lymphocytes (%) (Auto) 10.2 % (17.6-49.6) Monocytes (%) (Auto) 5.0 % (4.1-12.4) Eosinophils (%) (Auto) 0.8 % (0.4-6.7) Basophils (%) (Auto) 0.5 % (0.3-1.4) Nucleated RBC Relative Count (auto) 0.1 /100WBC Neutrophils # (Auto) 12.7 K/uL (2.0-7.4) Lymphocytes # (Auto) 1.5 K/uL (1.3-3.6) Monocytes # (Auto) 0.8 K/uL (0.3-1.0) Eosinophils # (Auto) 0.1 K/uL (0.0-0.5) Basophils # (Auto) 0.1 K/uL (0.0-0.1) Nucleated RBC Absolute Count (auto) 0.01 K/uL D-Dimer Quantitative (PE/DVT) 1.58 ug/ml (0-0.50) Glomerular Filtration Rate Calc 43.6 Lactate 3.2 mmol/L (0.7-2.1) Calcium Level 8.6 mg/dl (8.4-10.2) Total Bilirubin 1.0 mg/dl (0.2-1.3) Aspartate Amino Transf (AST/SGOT) 39 U/L (0-35) Alanine Aminotransferase (ALT/SGPT) 35 U/L (0-56) Alkaline Phosphatase 79 U/L (0-126) Troponin I < 0.012 ng/ml Total Protein 6.2 g/dl (6.3-8.2) Albumin 3.6 g/dl (3.5-5.0) B-Type Natriuretic Peptide 179 pg/ml (0-100) Digoxin Level < 0.4 ng/ml Digoxin Last Dose Date unk Digoxin Last Dose Time unk Coagulation Test 10/15/18 21:17 D-Dimer Quantitative (PE/DVT) 1.58 ug/ml Toxicology Test 10/15/18 21:26 Digoxin Level < 0.4 ng/ml Digoxin Last Dose Date unk Digoxin Last Dose Time unk EKG/Imaging EKG Interpretation 12 lead EK Rhythm: Atrial fibrillation with a rate of 134 Collins: normal QRS: normal ST segments: normal, comparison to previous EKGs dated 09/29/18 and 10/01/18, no significant overall morphology changes. There is some digitalis effect Imaging X-ray: Single view portable chest x-ray was obtained. I viewed the images myself on the PACS system. My interpretation of the images is: Haziness to bilateral lung morrow, comparison to previous chest x-ray dated 09/29/18, probably not significantly changed. The radiologist interpretation had no clinically significant variation from this interpretation. ED Course/Re-evaluation Clinical Indication for ER IV: IV Access ED Course Patient was admitted to an examination room. H&P was done. The differential diagnoses was considered. Patient with acute respiratory failure, COPD exacerbation. She has severe tachypnea, hypoxia on 100% O2. Patient was offered intubation. She refused initially. She was treated aggressively with serial labs, Solu-Medrol, and Dr. zaman for elevated blood pressure. BiPAP was administered. After an hour. She is much improved. Her tachypnea has resolved. Her tachycardia has resolved. Her pressures down to normal range. The Nitropaste was taken off. Her diagnostic studies show no elevated white blood cell count of 15,000. A lactate of 3.2. Troponin and EKG are unremarkable. Patient's BNP is mildly elevated. Her digoxin level returned undetectable. Patient's chest x-ray shows bilateral fluffy lung morrow. Likely pulmonary vascular congestion 10/15/2018 10:24:36 pm case discussed with Dr. Smith hospitalist on-call, who accepts the patient for admission to ICU on BiPAP Decision to Disposition Date: October 15, 2018 Decision to Disposition Time: 21:49 Critical Care Time I spent a total of 60 minutes of critical care time in obtaining history, performing a physical exam, bedside monitoring of interventions, collecting and interpreting tests and discussion with consultants but not including time spent performing procedures. Depart Departure Latest Vital Signs Vital Signs Date Time Temp Pulse Resp B/P (MAP) Pulse Ox O2 Delivery O2 Flow Rate FiO2 10/15/18 23:10 131 27 94 10/15/18 23:00 99/68 (78) 10/15/18 21:35 60.0 10/15/18 21:11 99.4 Bi-PAP Impression: Primary Impression: Respiratory failure Additional Impressions: Acute exacerbation of chronic obstructive pulmonary disease (COPD) Chest discomfort Diabetes mellitus Atrial fibrillation Condition: Improved Disposition: Admitted from ER Referrals: JUAN C CARRANZA MD (PCP) Problem Qualifiers Primary Impression: Respiratory failure Chronicity: acute Respiratory failure complication: hypoxia Qualified Codes: J96.01 - Acute respiratory failure with hypoxia Additional Impressions: Diabetes mellitus Diabetes mellitus type: type 2 Diabetes mellitus fdc insulin use: without fdc use Diabetes mellitus complication status: without complication Qualified Codes: E11.9 - Type 2 diabetes mellitus without complications Atrial fibrillation Atrial fibrillation type: chronic Qualified Codes: I48.2 - Chronic atrial fibrillation JULISSA QUINONEZ DO October 15, 2018 21:13
[2018-10-15] MEDS ORDERED: methylPREDNIS SUCC 125 MG/2ML IVP ONE (21:20)
[2018-10-15] MEDS: ALBUTEROL/IPRATROPIUM 3 ML NEB NEB SCH ×3 (21:20→22:26)
[2018-10-15] MEDS ORDERED: NITROGLYCERIN OINT 1 GM PKT TP ONE (21:20)
--- NOTE | 2018-10-15 21:41 | RADIOLOGY IMAGING REPORT ---
FACILITY: [facility] - [place] PATIENT NAME: Flower Burk : 1940 MR: [id number] V: [id number] EXAM DATE: ORDERING PHYSICIAN: JULISSA QUINONEZ TECHNOLOGIST: Location: [facility] Patient: Flower Burk : 1940 Visit/Account:[id number] Date of Sevice: 10/15/2018 Examination: CHEST SINGLE AP Comparison: 09/29/2018 and earlier. History: Respiratory distress. Findings: Cardiac and hilar contour is enlarged and slightly increased in size since 09/29/2018. Pulmo nary vascular congestion; diffuse groundglass density obscures the bronchovascular markings. No defin ite lobar consolidation. No pneumothorax. Small pleural effusions could be present. Cervical spine fu ba. Incompletely visualized left humerus internal fixation. IMPRESSION: The radiographic findings are most consistent with congestive failure which appears to have worsened since 09/29/2018. Report Dictated By: Itz Gallegos MD at 10/15/2018 9:35 PM Report E-Signed By: Itz Gallegos MD at 10/15/2018 9:37 PM WSN:[id number]
[2018-10-15 21:43] LABS: PLATELET COUNT, AUTOMATED 264 K/uL (150-450)
[2018-10-15] MEDS ORDERED: ONDANSETRON 4 MG/2 ML VIAL IVP ONE (21:45)
[2018-10-15] MEDS ORDERED: ALBUTEROL 2.5 MG/3 ML NEB NEB ONE (22:10)
--- NOTE | 2018-10-15 22:46 | EKG ---
FACILITY: [facility] PATIENT NAME: CIELO OLIVA : [id number] MR: [id number] V: [id number] EXAM DATE: ORDERING PHYSICIAN: JULISSA QUINONEZ TECHNOLOGIST: AZAM Test Reason : DYSPNEA Blood Pressure : / mmHG Vent. Rate : 134 BPM Atrial Rate : 122 BPM P-R Int : 000 ms QRS Dur : 080 ms QT Int : 314 ms P-R-T Axes : 000 037 092 degrees QTc Int : 468 ms Atrial fibrillation Abnormal ECG When compared with ECG of 01-OCT-2018 08:47, Nonspecific T wave abnormality no longer evident in Inferior leads T wave inversion no longer evident in Lateral leads Confirmed by JUAN C SMITH ([id number]) on 10/16/2018 6:18:57 AM Referred By: Confirmed By:JUAN C SMITH
[2018-10-15 23:48] VITALS: BP 120/65
[2018-10-16] VITALS (29 sets, daily range): BP systolic 68–169; BP diastolic 58–142
[2018-10-16] MEDS ORDERED: ALBUTEROL 2.5 MG/3 ML NEB NEB PRN
[2018-10-16] MEDS ORDERED: INSULIN HUM LISPRO 100 UN/ML 3 ML VIAL SUBQ PRN
[2018-10-16] MEDS ORDERED: INFLUENZA VIRUS VAC 0.5ML SYR IM ONLY ONE
[2018-10-16] MEDS ORDERED: FUROSEMIDE 40 MG/4 ML VIAL IVP ONE
--- NOTE | 2018-10-16 00:24 | History & Physical ---
History of Present Illness Chief Complaint Shortness of breath History of Present Illness This patient presented to the emergency department complaining of shortness of breath. She was discharged after a COPD exacerbation about 2 weeks ago. She reports that she had been doing well, but that her breathing started to worsen after she completed her prednisone taper. History Problems: (1) CAD (coronary artery disease) Status: Chronic (2) Gout Status: Chronic (3) Diverticulosis Status: Chronic (4) Nephrolithiasis Status: Chronic (5) Obesity, morbid, BMI 50 or higher Status: Chronic (6) Hypothyroid Status: Chronic (7) Atrial fibrillation Status: Chronic (8) Diabetes mellitus Status: Chronic (9) S/P knee replacement Status: Resolved (10) S/P lumbar spinal fusion Status: Resolved Home Meds Active Scripts Prednisone 10 Mg Tab (PREDNISONE 10 MG TAB) 10 Mg Tablet, 10 MG PO DIRECTED, #30 TAB Take 4 tab daily x 3 days, then 3 tab daily x 3 days, then 2 tab daily x 3 days, then 1 tab daily x 3 days. Prov:JUAN C SMITH DO 10/03/18 Insulin Glargine 100 Un/Ml Pen (LANTUS SOLOSTAR PEN) 100 Unit/1 Ml Insuln.pen, 20 UNIT SUBQ QHS, #1 PEN Prov:JUAN C SMITH DO 10/03/18 Dicyclomine Hcl (DICYCLOMINE HCL) 20 Mg Tablet, 20 MG PO QID for diarrhea, #20 TAB 0 Refills Prov:SANTIAGO SEGURA MD 08/20/18 Budesonide/Formoterol Fumarate (SYMBICORT 160-4.5 MCG INHALER) 10.2 Gm Inh, 2 EACH INH BIDR for 30 Days, #1 INH 1 Refill Two puffs two times a day. Prov:BALWINDER DIAMOND MD 12/09/16 Reported Medications Lisinopril (LISINOPRIL) 10 Mg Tablet, 10 MG PO QDAY, TAB 10/01/18 Allopurinol (ZYLOPRIM) 300 Mg Tablet, 300 MG PO QDAY, TAB 10/01/18 Rivaroxaban 20 Mg (XARELTO 20 MG) 20 Mg Tablet, 1 TAB PO QDAY 08/16/18 Fenofibrate,Micronized (FENOFIBRATE) 67 Mg Capsule, 1 CAP PO QDAY with food 08/16/18 Gabapentin (GABAPENTIN) 600 Mg Tablet, 2 TAB PO TID 08/16/18 Metoprolol Succinate (METOPROLOL SUCCINATE) 100 Mg Tab.er.24h, 2 TAB PO QDAY 08/16/18 Canagliflozin (INVOKANA) 300 Mg Tablet, 1 TAB PO DAILY 12/06/16 Digoxin (DIGOXIN) 125 Mcg Tablet, 125 MCG PO DAILY 07/04/14 Omeprazole (OMEPRAZOLE) 20 Mg Tablet.dr, 20 MG PO QDAY TAKE ONE TABLET BY MOUTH ONCE A DAY 07/03/14 Paroxetine Hcl (PAROXETINE HCL) 40 Mg Tablet, 1 TAB PO DAILY, #30 07/02/14 Atorvastatin Calcium (ATORVASTATIN CALCIUM) 40 Mg Tablet, 1 TAB PO DAILY, #90 07/02/14 Levothyroxine Sodium (LEVOTHYROXINE SODIUM) 88 Mcg Tablet, 1 TAB PO DAILY, #90 07/02/14 Allergies: Coded Allergies: pentazocine (Verified Allergy, Mild, NAUSEA/VOMITING, 10/15/18) Uncoded Allergies: STRAW LOU (Allergy, Severe, RESP PROBLEMS, 01/11/08) TAPE (Allergy, Mild, BLISTERS, 12/05/07) 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, BROTHER OR SISTER, FH: hepatic cirrhosis Hx Smoking: Yes Smoking Status: Former Smoker Exposure to Second Hand Smoke?: No Caffeine Intake: Soda Caffeine/Cups Per Day: 1/day Hx Alcohol Use: No Hx Substance Use Disorder: No Social Drug Use: Never Review of Systems All Systems Reviewed/Normal: Yes, Except as Noted Respiratory: Shortness of Breath, Wheezing Exam Vital Signs Vital Signs Date Time Temp Pulse Resp B/P (MAP) Pulse Ox O2 Delivery O2 Flow Rate FiO2 10/15/18 23:48 108 18 120/65 (83) 97 Bi-PAP 60.0 10/15/18 21:11 99.4 Neuro: No Gross deficits Eyes: PERRLA Cardiovascular: Regular Rate and Rhythm Respiratory: Other (Bilateral wheezes and rhonchi.) GI: Abd Soft and Non-Tender Extremities: Edema Integumentary: No Cyanosis Medical Decision Making Data Points Result Diagram: 10/15/18211610/15/182116 Assessment and Plan Problems: (1) Acute exacerbation of chronic obstructive pulmonary disease (COPD) Status: Acute Assessment & Plan: She did present with increased shortness of breath that started a day after she completed her previous prednisone taper. She has been placed on nebulizers and IV Solu-Medrol. She is also requiring BiPAP. She will likely require either a more prolonged taper or chronic low dose prednisone to help prevent future exacerbations. (2) Acute heart failure with preserved ejection fraction Assessment & Plan: Her chest x-ray did show findings consistent with pulmonary edema and CHF. She had an echocardiogram, which showed an ejection fraction of 55-60%, during her last admission. Her weight is also increased several Kg since her discharge. She has been given a dose of Lasix and daily weights are ordered. (3) DM2 (diabetes mellitus, type 2) Assessment & Plan: She is on chronic treatment with Lantus. She has also been placed on sliding scale level #2. (4) Atrial fibrillation Status: Chronic Assessment & Plan: She is on chronic treatment with digoxin, metoprolol, and Xarelto. (5) HTN (hypertension) Status: Chronic Assessment & Plan: She is on chronic treatment with lisinopril. (6) Gout Status: Chronic Assessment & Plan: She is on chronic treatment with allopurinol. (7) Hypothyroid Status: Chronic Assessment & Plan: She is on chronic treatment with Synthroid. (8) Obesity, morbid, BMI 50 or higher Status: Chronic Copies to: JUAN C CARRANZA MD ; Venous Thromboembolism Antithrombotics Is Pt On Any Antithrombotics?: Yes Exam Sepsis Risk: Possible Sepsis Risk Problem Qualifiers (1) Atrial fibrillation: Atrial fibrillation type: chronic Qualified Codes: I48.2 - Chronic atrial fibrillation JUAN C SMITH DO October 16, 2018 00:24
[2018-10-16] MEDS: ALBUTEROL/IPRATROPIUM 3 ML NEB NEB SCH ×5 (01:16→17:20)
[2018-10-16] MEDS ORDERED: methylPREDNIS SUCC 125 MG/2ML IVP SCH (03:00)
[2018-10-16 05:09] LABS: PLATELET COUNT, AUTOMATED 189 K/uL (150-450)
--- NOTE | 2018-10-16 06:18 | RADIOLOGY IMAGING REPORT ---
[place] [facility] [place] NAME: Flower Burk : 1940 MR: [id number] V: [id number] EXAM DATE: ORDERING PHYSICIAN: JUAN C SMITH TECHNOLOGIST: Location: [facility] Patient: Flower Burk : 1940 Visit/Account:[id number] Date of Sevice: 10/16/2018 AP CHEST 10/16/2018 6:00 AM. INDICATION: Congestive heart failure. COMPARISON: Yesterday. FINDINGS: Persistent groundglass opacification. Question decreased vascular congestion. No definite pleural e ffusion or pneumothorax. Decreased enlargement of the cardiac silhouette. IMPRESSION: Suspected decreased vascular congestion and decreased enlargement of the cardiac silhouet te, though this may be partially technique related. Report Dictated By: Markus Garcia MD at 10/16/2018 6:10 AM Report E-Signed By: Markus Garcia MD at 10/16/2018 6:13 AM WSN:[id number]
[2018-10-16] MEDS: BUDESO/FORMOT 160/4.5 MCG 6 GM INH SCH ×2 (07:57→17:20)
[2018-10-16] MEDS ORDERED: FUROSEMIDE 20 MG/2 ML VIAL IVP ONE (08:20)
[2018-10-16] MEDS ORDERED: LEVALBUTEROL 1.25 MG/3 ML NEB NEB PRN (08:20)
[2018-10-16] MEDS: LEVOTHYROXINE SOD 0.088 MG TAB PO SCH (08:46)
[2018-10-16] MEDS: DICYCLOMINE HCL 10 MG CAP PO SCH ×4 (08:46→21:01)
[2018-10-16] MEDS: DIGOXIN 0.125 MG TAB PO SCH (08:47)
[2018-10-16] MEDS: METOPROLOL SUCC XL 50 MG TABCR 50 MG TAB.ER.24H PO SCH (08:47)
[2018-10-16] MEDS: RIVAROXABAN 10 MG TAB PO SCH (08:47)
[2018-10-16] MEDS: PARoxetine HCL 20 MG TAB PO SCH (08:48)
[2018-10-16] MEDS: PAROXETINE HCL 10 MG TABLET PO SCH (08:49)
[2018-10-16] MEDS: ATORVASTATIN 40 MG TAB PO SCH (08:50)
[2018-10-16] MEDS: GABAPENTIN 300 MG CAP PO SCH ×3 (08:50→21:01)
[2018-10-16] MEDS: PANTOPRAZOLE SOD 40 MG TABEC PO SCH (08:50)
[2018-10-16] MEDS: ALLOPURINOL 300 MG TAB PO SCH (08:51)
--- NOTE | 2018-10-16 08:51 | Hospitalist Progress Note ---
Subjective Progress Notes Subjective Having a lot of secretions. Requiring suction to clear. He is still on the Precedex drip and getting prn Ativan. Physical Exam Vital Signs Date Time Temp Pulse Resp B/P (MAP) Pulse Ox O2 Delivery O2 Flow Rate FiO2 10/16/18 07:59 89 High-Flow Nasal Cannula 7.0 10/16/18 06:35 112 10/16/18 06:30 16 147/98 (114) 60.0 10/16/18 03:30 98.3 Intake and Output 10/16/18 06:59 Intake Total 250 ml Output Total 500 ml Balance -250 ml Intake Oral 50 ml IV Total 200 ml Output Urine Total 500 ml # Voids 4 General Appearance: Other (Sleeping, mild wob) Neuro: Other (moves to painful stimulation, not openning eyes to voice) Cardiovascular: Regular Rate and Rhythm Respiratory: Other (Course BS throughout. Some upper airway sounds) Result Diagram: 10/16/18 0500 10/16/18 0500 Assessment and Plan Problems: (1) Acute exacerbation of chronic obstructive pulmonary disease (COPD) Status: Acute Assessment & Plan: She did present with increased shortness of breath that started a day after she completed her previous prednisone taper. She has been placed on DuoNeb, Xopenex prn and IV Solu-Medrol. She is also requiring BiPAP. She does not want to be intubated. Lungs are fairly clear, but still with moderate work of breathing and high O2 requirement. She will likely require either a more prolonged taper or chronic low dose prednisone to help prevent future exacerbations. (2) Acute heart failure with preserved ejection fraction Assessment & Plan: Her chest x-ray did show findings consistent with pulmonary edema and CHF. She had an echocardiogram, which showed an ejection fraction of 55-60%, during her last admission. Her admitting weight was also increased several Kg since her discharge. She was given a dose of Lasix last night, fluid restricted to 2 liters and daily weights are ordered. Will give another dose of Lasix now. (3) CKD (chronic kidney disease) stage 3, GFR 30-59 ml/min Status: Chronic Assessment & Plan: Follow creatinine closely with diureses. Holding lisinopril. (4) DM2 (diabetes mellitus, type 2) Assessment & Plan: She is on chronic treatment with Lantus. She has also been placed on sliding scale level #3. (5) Atrial fibrillation Status: Chronic Assessment & Plan: She is on chronic treatment with digoxin, metoprolol, and Xarelto. (6) HTN (hypertension) Status: Chronic Assessment & Plan: She is on chronic treatment with lisinopril. See above. (7) Gout Status: Chronic Assessment & Plan: She is on chronic treatment with allopurinol. (8) Hypothyroid Status: Chronic Assessment & Plan: She is on chronic treatment with Synthroid. (9) Obesity, morbid, BMI 50 or higher Status: Chronic Exam Sepsis Risk: Severe Sepsis Risk Problem Qualifiers (1) Atrial fibrillation: Atrial fibrillation type: chronic Qualified Codes: I48.2 - Chronic atrial fibrillation SOURAV ROLLINS MD October 16, 2018 08:51
[2018-10-16] MEDS: INSULIN HUM LISPRO 100 UN/ML 3 ML VIAL SUBQ PRN ×4 (08:53→21:04)
[2018-10-16] MEDS: methylPREDNIS SUCC 125 MG/2ML IVP SCH ×2 (08:53→17:10)
[2018-10-16] MEDS ORDERED: LISINOPRIL 10 MG TAB PO SCH (09:00)
[2018-10-16] MEDS ORDERED: CANAGLIFLOZIN 300 MG PO SCH (09:00)
[2018-10-16] MEDS ORDERED: FENOFIBRATE MICRONIZED 67 MG PO SCH (09:00)
[2018-10-16] MEDS ORDERED: PARoxetine HCL 20 MG TAB PO SCH (09:00)
[2018-10-16] MEDS ORDERED: PATIENT'S OWN MED PO SCH ×2 (09:00)
--- NOTE | 2018-10-16 09:11 | NUR ---
pt states that she no longer takes the Lofibra or the Invokana, Pharmacy and MD advised
--- NOTE | 2018-10-16 10:34 | Medical Nutrition Therapy ---
Nutrition Anthropometrics Height (Inches): 62 Weight (Pounds): 271 Weight (Calculated Kilograms): 123.094 BMI: 49.5 Cecil Nutrition Score: Adequate Cecil Nutrition Risk Score: 15 Dietary Referral Nutrition Risk Factors: Nutrition Risk Comment: Physical Findings Physical Appearance: Morbidly Obese 40+ Skin Appearance Skin Appearance: Edema Edema Location Modifier: Both Edema Location: Lower Extremity Type of Edema: Degree of Edema: 1+ Gastrointestinal Symptoms GI Symtoms: Tube Present: Bowel Sounds: Recent Bowel Pattern: Stool Characteristics: Nutrition/Food History recieved diet education for T2DM 09/30/18 Nutritional Diagnosis Nutritional Risk Acuity 2: CHF w/Complication, Blood Glucose > 300mg/dl Nutritional Risk Acuity 3: Morbid Obesity, COPD Unstable Past Medical History: HX of COPD, Atril Fib, Sleep Apnea, T2DM, HTN, Hypothyroidism Nutritional Acuity: 2-Moderate Nutrition Diagnosis: Decreased Nutrient Needs Nutrition Etiology: Physiological Causes Nutrition Problem/Etiology/Sym: Decreased Na and fluid needs r/t dx CHF and edema. Adjusted Energy Requirement Re: 1515 (HB adj for obesity) Protein Requirement: 73 (1gm/kg ABW) Fluid Requirement: 1825 (25 ml/kg ABW) Diet Type: Fluid Restricted Nutrition Intervention: Cont diet as ordered (pt may benefit with ADA diet add ed), Encourage intake Drug: Diuretics Nutrition Monitoring & Eval Nutrition Goals: Fluid Restrictions RD Patient Assessment Time: [address] Assessment Type: RD Assessment Patient Nutrition Acuity: 2-Moderate Follow Up Date: October 21, 2018 Nutritional Comment: 10/16 Pt admitted for COPD, CHF. Pt zabala 1+ edema BLE. Wt is up 11# from 09/29/18. BG elevated up to 369. Alb 3.6. Pt on K+ depleting duiretic but K+ is WNR at 5. Pt on fluid resticted diet. Pt has dx T2DM, reommend adding ADA diet to fluid restictions. No curretn intake recorded. Will cont to monitor and encourage intake. SHERLEY STILL October 16, 2018 10:34
[2018-10-16] MEDS: ACETAMINOPHEN 500 MG TAB PO PRN (13:27)
[2018-10-16] MEDS: NYSTATIN 100,000 U/GM PWD 15GM TP SCH ×2 (13:27→21:02)
[2018-10-16] MEDS ORDERED: GUAIFENESIN/DEXTROMETHORPHAN 5 ML PO PRN (16:45)
[2018-10-16] MEDS ORDERED: INSU300I SUBQ (18:17)
[2018-10-16] MEDS ORDERED: diphenhydrAMINE 25 MG CAP PO PRN (20:55)
[2018-10-16] MEDS ORDERED: INSULIN GLARGINE 100 U/ML 3 ML PEN SUBQ SCH (21:00)
[2018-10-17 00:49] VITALS: BP 123/85
[2018-10-17] MEDS: methylPREDNIS SUCC 125 MG/2ML IVP SCH (01:05)
[2018-10-17] MEDS: BUDESO/FORMOT 160/4.5 MCG 6 GM INH SCH ×2 (05:34→17:59)
[2018-10-17] MEDS: ALBUTEROL/IPRATROPIUM 3 ML NEB NEB SCH ×4 (05:34→17:59)
[2018-10-17] MEDS: LEVOTHYROXINE SOD 0.088 MG TAB PO SCH (06:13)
[2018-10-17 06:21] LABS: PLATELET COUNT, AUTOMATED 211 K/uL (150-450)
[2018-10-17 07:15] VITALS: BP 154/91
[2018-10-17] MEDS: INSULIN HUM LISPRO 100 UN/ML 3 ML VIAL SUBQ PRN ×4 (07:58→21:10)
[2018-10-17] MEDS ORDERED: predniSONE 20 MG TAB PO SCH (09:00)
[2018-10-17] MEDS: DICYCLOMINE HCL 10 MG CAP PO SCH ×4 (09:23→21:08)
[2018-10-17] MEDS: DIGOXIN 0.125 MG TAB PO SCH (09:24)
[2018-10-17] MEDS: METOPROLOL SUCC XL 50 MG TABCR 50 MG TAB.ER.24H PO SCH (09:24)
[2018-10-17] MEDS: RIVAROXABAN 10 MG TAB PO SCH (09:25)
[2018-10-17] MEDS: ALLOPURINOL 300 MG TAB PO SCH (09:25)
[2018-10-17] MEDS: PANTOPRAZOLE SOD 40 MG TABEC PO SCH (09:25)
[2018-10-17] MEDS: ATORVASTATIN 40 MG TAB PO SCH (09:25)
[2018-10-17] MEDS: PAROXETINE HCL 10 MG TABLET PO SCH (09:25)
[2018-10-17] MEDS: PARoxetine HCL 20 MG TAB PO SCH (09:25)
[2018-10-17] MEDS: GABAPENTIN 300 MG CAP PO SCH ×3 (09:25→21:08)
[2018-10-17] MEDS: NYSTATIN 100,000 U/GM PWD 15GM TP SCH ×2 (09:26→21:08)
[2018-10-17] MEDS ORDERED: predniSONE 20 MG TAB PO ONE (10:10)
[2018-10-17 11:23] VITALS: BP 139/73
--- NOTE | 2018-10-17 12:49 | Hospitalist Progress Note ---
Subjective Progress Notes Subjective Reports continued chest discomfort, glucose is running high. Otherwise DEVON overnight. Physical Exam Vital Signs Date Time Temp Pulse Resp B/P (MAP) Pulse Ox O2 Delivery O2 Flow Rate FiO2 10/17/18 11:23 98.5 85 16 139/73 (95) 90 High-Flow Nasal Cannula 8.0 10/17/18 08:15 50.0 Intake and Output 10/17/18 07:00 Intake Total 1500 ml Output Total 1975 ml Balance -475 ml Intake Oral 1500 ml Output Urine Total 1975 ml General Appearance: Awake, No Acute Distress, Afebrile Neuro: No Gross deficits Cardiovascular: Normal Rhythm & Peripheral Pulses Respiratory: Other (On BiPAP, decreased breath sounds bilaterally) GI: Soft and Non-Tender Extremities: Soft and Non Tender, Warm, Pulses, Perfused Result Diagram: 10/17/1851110/17/18511 Assessment and Plan Problems: (1) Acute exacerbation of chronic obstructive pulmonary disease (COPD) Status: Acute Assessment & Plan: She did present with increased shortness of breath that started a day after she completed her previous prednisone taper. She has been placed on DuoNeb, Xopenex prn and steroid. She is also requiring BiPAP at night. She does not want to be intubated. Lungs are fairly clear, but still with moderate work of breathing and high O2 requirement. She will likely require either a more prolonged taper or chronic low dose prednisone to help prevent future exacerbations. (2) Acute heart failure with preserved ejection fraction Assessment & Plan: Her chest x-ray did show findings consistent with pulmonary edema and CHF. She had an echocardiogram, which showed an ejection fraction of 55-60%, during her last admission. Her admitting weight was also increased several Kg since her discharge. She was given a dose of Lasix , fluid restricted to 2 liters and daily weights are ordered. (3) CKD (chronic kidney disease) stage 3, GFR 30-59 ml/min Status: Chronic Assessment & Plan: Follow creatinine closely with isela. Holding lisinopril. (4) DM2 (diabetes mellitus, type 2) Assessment & Plan: She is on chronic treatment with Lantus, given poor control increased to 35U qhs. She has also been placed on sliding scale level #3. (5) Atrial fibrillation Status: Chronic Assessment & Plan: She is on chronic treatment with digoxin, metoprolol, and Xarelto. (6) HTN (hypertension) Status: Chronic Assessment & Plan: She is on chronic treatment with lisinopril. See above. (7) Gout Status: Chronic Assessment & Plan: She is on chronic treatment with allopurinol. (8) Hypothyroid Status: Chronic Assessment & Plan: She is on chronic treatment with Synthroid. (9) Obesity, morbid, BMI 50 or higher Status: Chronic Exam Sepsis Risk: Sepsis Risk Problem Qualifiers (1) Atrial fibrillation: Atrial fibrillation type: chronic Qualified Codes: I48.2 - Chronic atrial fibrillation OMID THRASHER DO October 17, 2018 12:49
--- NOTE | 2018-10-17 13:55 | NUR ---
Physical Therapy Impression PT verbal eval complete. Pt firmly declines any functional mobility at this time. Per Pt report, Pt lives in a single level home with a ramp to enter which her pushes her up in a wheelchair. Pt reports her does "everything" for her which includes IADLs, ADLs (bathing, dressing specifically), and assists with getting her legs into bed. Pt reports ambulating in the home with a walker but also has a commode next to her chair and also her bed which she uses. Pt agreeable to PT mobility on Friday. Recommendations pending progress. Physical Therapy Goals 1. Mod A bed mobility. 2. SBA sit<>stand. 3. Ambulation x 25' with RW and SBA. Patient's Goals
[2018-10-17 16:06] VITALS: BP 100/81
[2018-10-17 19:07] VITALS: BP 135/76
[2018-10-17] MEDS: INSULIN GLARGINE 100 U/ML 3 ML PEN SUBQ SCH (21:09)
[2018-10-18] VITALS (7 sets, daily range): BP systolic 136–195; BP diastolic 74–123
[2018-10-18] MEDS: ALBUTEROL/IPRATROPIUM 3 ML NEB NEB SCH ×4 (05:02→17:02)
[2018-10-18] MEDS: BUDESO/FORMOT 160/4.5 MCG 6 GM INH SCH ×2 (05:03→17:03)
[2018-10-18 06:07] LABS: PLATELET COUNT, AUTOMATED 211 K/uL (150-450)
[2018-10-18] MEDS: LEVOTHYROXINE SOD 0.088 MG TAB PO SCH (06:22)
[2018-10-18] MEDS: INSULIN HUM LISPRO 100 UN/ML 3 ML VIAL SUBQ PRN ×4 (08:26→21:21)
[2018-10-18] MEDS: DIGOXIN 0.125 MG TAB PO SCH (08:27)
[2018-10-18] MEDS: PARoxetine HCL 20 MG TAB PO SCH (08:27)
[2018-10-18] MEDS: ALLOPURINOL 300 MG TAB PO SCH (08:27)
[2018-10-18] MEDS: PAROXETINE HCL 10 MG TABLET PO SCH (08:27)
[2018-10-18] MEDS: DICYCLOMINE HCL 10 MG CAP PO SCH ×4 (08:27→21:23)
[2018-10-18] MEDS: PANTOPRAZOLE SOD 40 MG TABEC PO SCH (08:27)
[2018-10-18] MEDS: GABAPENTIN 300 MG CAP PO SCH ×3 (08:28→21:23)
[2018-10-18] MEDS: NYSTATIN 100,000 U/GM PWD 15GM TP SCH ×2 (08:28→21:23)
[2018-10-18] MEDS: predniSONE 20 MG TAB PO SCH (08:28)
[2018-10-18] MEDS: METOPROLOL SUCC XL 50 MG TABCR 50 MG TAB.ER.24H PO SCH (08:28)
[2018-10-18] MEDS: ATORVASTATIN 40 MG TAB PO SCH (08:28)
[2018-10-18] MEDS: RIVAROXABAN 10 MG TAB PO SCH (08:28)
[2018-10-18] MEDS ORDERED: NOR25 PO (09:37)
[2018-10-18] MEDS ORDERED: FUROSEMIDE 20 MG/2 ML VIAL IVP ONE (10:00)
--- NOTE | 2018-10-18 10:05 | Hospitalist Progress Note ---
Subjective Progress Notes Subjective Breathing is better today. Feels weak. At home she mostly uses commodes next to her chair in the LR and bedroom, but occasionally walks with a walker down her velazco to the bathroom. She notes her R leg has gradually become weaker. Physical Exam Vital Signs Date Time Temp Pulse Resp B/P (MAP) Pulse Ox O2 Delivery O2 Flow Rate FiO2 10/18/18 09:38 72 20 10/18/18 09:32 96 High-Flow Nasal Cannula 6.0 10/18/18 08:24 186/90 (122) 10/18/18 08:14 97.6 50.0 Intake and Output 10/18/18 07:00 Intake Total 2350 ml Output Total 650 ml Balance 1700 ml Intake Oral 2350 ml Output Urine Total 650 ml # Bowel Movements 2 General Appearance: Alert, Awake, No Acute Distress Neuro: Other (Some difficulty with short term memory.) Eyes: PERRLA Cardiovascular: Other (Heart tones distant. Irregularly irregular.) Respiratory: Clear to Auscultation (Anteriorly. No obvious wheezing today.) GI: Soft and Non-Tender (Bowel sounds positive.) Extremities: Warm, Perfused, Edema Psych: Alert & Oriented X3, Appropriate Mood & Affect Result Diagram: 10/18/1854410/18/18544 Assessment and Plan Problems: (1) Acute exacerbation of chronic obstructive pulmonary disease (COPD) Status: Acute Assessment & Plan: She did present with increased shortness of breath that started a day after she completed her previous prednisone taper. She has been placed on DuoNeb, Xopenex prn and steroid. She is also requiring BiPAP at night. She does not want to be intubated. Lungs are fairly clear. Her work of breathing has improved. She still has a higher O2 requirement than her baseline. She will likely require either a more prolonged taper or chronic low dose prednisone to help prevent future exacerbations. (2) Acute heart failure with preserved ejection fraction Assessment & Plan: Her chest x-ray did show findings consistent with pulmonary edema and CHF. She had an echocardiogram, which showed an ejection fraction of 55-60%, during her last admission. Her admitting weight was also increased several Kg since her discharge. She was given a dose of Lasix , fluid restricted to 3 liters and daily weights are ordered. (3) CKD (chronic kidney disease) stage 3, GFR 30-59 ml/min Status: Chronic Assessment & Plan: Follow creatinine closely with isela. Holding lisinopril. (4) DM2 (diabetes mellitus, type 2) Assessment & Plan: She is on chronic treatment with Lantus, given poor control increased to 35U qhs. She has also been placed on sliding scale level #3. (5) Atrial fibrillation Status: Chronic Assessment & Plan: She is on chronic treatment with digoxin, metoprolol, and Xarelto. (6) HTN (hypertension) Status: Chronic Assessment & Plan: She is on chronic treatment with lisinopril. See above. (7) Gout Status: Chronic Assessment & Plan: She is on chronic treatment with allopurinol. (8) Hypothyroid Status: Chronic Assessment & Plan: She is on chronic treatment with Synthroid. (9) Obesity, morbid, BMI 50 or higher Status: Chronic Time Spent on Plan of Care: < 30 min Exam Sepsis Risk: No Definite Risk Problem Qualifiers (1) Atrial fibrillation: Atrial fibrillation type: chronic Qualified Codes: I48.2 - Chronic atrial fibrillation MICHAEL DIAMOND MD October 18, 2018 10:04
[2018-10-18] MEDS ORDERED: DEXT30SU27 PO (15:24)
[2018-10-18] MEDS ORDERED: LEVO88TA43 PO (15:24)
[2018-10-18] MEDS ORDERED: FLUT16SP19 NS (15:24)
[2018-10-18] MEDS ORDERED: ACET-1966 PO (15:24)
[2018-10-18] MEDS ORDERED: FENO48TA15 PO (15:24)
[2018-10-18] MEDS: ACETAMINOPHEN 500 MG TAB PO PRN (16:22)
[2018-10-18] MEDS: INSULIN GLARGINE 100 U/ML 3 ML PEN SUBQ SCH (21:23)
[2018-10-19 01:52] VITALS: BP_SYST 153; BP_SYST 161; BP_DIAS 91; BP_DIAS 99
[2018-10-19] MEDS: BUDESO/FORMOT 160/4.5 MCG 6 GM INH SCH ×2 (05:19→17:01)
[2018-10-19] MEDS: ALBUTEROL/IPRATROPIUM 3 ML NEB NEB SCH ×4 (05:19→17:01)
[2018-10-19] MEDS: LEVOTHYROXINE SOD 0.088 MG TAB PO SCH (05:40)
[2018-10-19 06:08] LABS: PLATELET COUNT, AUTOMATED 201 K/uL (150-450)
[2018-10-19 08:45] VITALS: BP 136/69
[2018-10-19] MEDS: predniSONE 20 MG TAB PO SCH (08:53)
[2018-10-19] MEDS: ALLOPURINOL 300 MG TAB PO SCH (08:55)
[2018-10-19] MEDS: ATORVASTATIN 40 MG TAB PO SCH (08:55)
[2018-10-19] MEDS: DICYCLOMINE HCL 10 MG CAP PO SCH ×4 (08:55→21:19)
[2018-10-19] MEDS: PANTOPRAZOLE SOD 40 MG TABEC PO SCH (08:55)
[2018-10-19] MEDS: GABAPENTIN 300 MG CAP PO SCH ×3 (08:55→21:19)
[2018-10-19] MEDS: RIVAROXABAN 10 MG TAB PO SCH (08:55)
[2018-10-19] MEDS: PARoxetine HCL 20 MG TAB PO SCH (08:55)
[2018-10-19] MEDS: METOPROLOL SUCC XL 50 MG TABCR 50 MG TAB.ER.24H PO SCH (08:55)
[2018-10-19] MEDS: PAROXETINE HCL 10 MG TABLET PO SCH (08:56)
[2018-10-19] MEDS: DIGOXIN 0.125 MG TAB PO SCH (08:56)
[2018-10-19] MEDS: NYSTATIN 100,000 U/GM PWD 15GM TP SCH ×2 (08:57→21:19)
[2018-10-19] MEDS ORDERED: FUROSEMIDE 40 MG/4 ML VIAL IVP ONE (09:10)
[2018-10-19 11:23] VITALS: BP 144/97
[2018-10-19] MEDS: INSULIN HUM LISPRO 100 UN/ML 3 ML VIAL SUBQ PRN ×3 (11:28→21:26)
--- NOTE | 2018-10-19 11:31 | Hospitalist Progress Note ---
Subjective Progress Notes Subjective This patient was admitted for COPD and heart failure. She had no acute changes overnight. Patient Complains of: Cardiovascular: No: Chest Pain Respiratory: No: Shortness of Breath Physical Exam Vital Signs Date Time Temp Pulse Resp B/P (MAP) Pulse Ox O2 Delivery O2 Flow Rate FiO2 10/19/18 09:30 82 20 10/19/18 09:24 95 High-Flow Nasal Cannula 6.0 10/19/18 08:45 97.8 136/69 (91) 10/19/18 01:52 50.0 Intake and Output 10/19/18 07:00 Intake Total 1800 ml Output Total 4075 ml Balance -2275 ml Intake Oral 1800 ml Output Urine Total 4075 ml # Bowel Movements 2 Cardiovascular: Regular Rate and Rhythm Respiratory: Clear to Auscultation Extremities: Edema Result Diagram: 10/19/1853910/19/18539 Assessment and Plan Problems: (1) Acute exacerbation of chronic obstructive pulmonary disease (COPD) Status: Acute Assessment & Plan: She did present with increased shortness of breath that started a day after she completed her previous prednisone taper. She is on DuoNeb, Xopenex prn and steroid. She is also requiring BiPAP at night. She will likely require either a more prolonged taper or chronic low dose prednisone to help prevent future exacerbations. (2) Acute heart failure with preserved ejection fraction Assessment & Plan: Her chest x-ray did show findings consistent with pulmonary edema and CHF. She had an echocardiogram, which showed an ejection fraction of 55-60%, during her last admission. Her admitting weight was also increased several Kg since her last discharge. She has received intermittent doses of Lasix. Her weight is still elevated compared to her last discharge weight 118Kg. She will receive another dose of Lasix today. (3) DM2 (diabetes mellitus, type 2) Assessment & Plan: She is on chronic treatment with Lantus, which has been increased during this admission. She is also on sliding scale level #3. (4) CKD (chronic kidney disease) stage 3, GFR 30-59 ml/min Status: Chronic (5) Atrial fibrillation Status: Chronic Assessment & Plan: She is on chronic treatment with digoxin, metoprolol, and Xarelto. (6) HTN (hypertension) Status: Chronic Assessment & Plan: She is on chronic treatment with lisinopril, which has been on hold. (7) Gout Status: Chronic Assessment & Plan: She is on chronic treatment with allopurinol. (8) Hypothyroid Status: Chronic Assessment & Plan: She is on chronic treatment with Synthroid. (9) Obesity, morbid, BMI 50 or higher Status: Chronic Exam Sepsis Risk: No Definite Risk Problem Qualifiers (1) Atrial fibrillation: Atrial fibrillation type: chronic Qualified Codes: I48.2 - Chronic atrial fibrillation JUAN C SMITH DO October 19, 2018 11:30
--- NOTE | 2018-10-19 12:51 | NUR ---
Physical Therapy Impression Pt initially refusing PT tx and required strong encouragement and much education to participate. Pt states she is "too weak" to go home but (initially) declines working with physical therapy in order to prepare to go home. With much education about purpose of physical therapy, Pt agreeable to ambulate around the bed and get back into bed to rest. Pt able to stand with CGA and ambulate 15' with RW and CGA. Pt required Min A for LEs into bed which Pt states her does for her at home. Pt likely near baseline functional mobility and is safe for DC when medically appropriate. Recommend HH PT, however, Pt has declined this as well. Physical Therapy Goals 1. Mod A bed mobility. 2. SBA sit<>stand. 3. Ambulation x 25' with RW and SBA. Patient's Goals
--- NOTE | 2018-10-19 14:29 | NUR ---
Occupational Therapy Impression Subjective OT evaluation. Pt politely declines to get OOB at this time despite significant encouragement. Pt declined OT return later this date. Will follow. Occupational Therapy Goals Patient's Goal
[2018-10-19 15:29] VITALS: BP 165/85
[2018-10-19 19:50] VITALS: BP 151/78
[2018-10-19] MEDS: ACETAMINOPHEN 500 MG TAB PO PRN (21:19)
[2018-10-19] MEDS: INSULIN GLARGINE 100 U/ML 3 ML PEN SUBQ SCH (21:23)
[2018-10-20 02:16] VITALS: BP 158/82
[2018-10-20] MEDS: BUDESO/FORMOT 160/4.5 MCG 6 GM INH SCH ×2 (05:17→16:45)
[2018-10-20] MEDS: ALBUTEROL/IPRATROPIUM 3 ML NEB NEB SCH ×4 (05:17→16:44)
[2018-10-20] MEDS: LEVOTHYROXINE SOD 0.088 MG TAB PO SCH (05:38)
[2018-10-20 07:21] VITALS: BP 150/84
[2018-10-20] MEDS: INSULIN HUM LISPRO 100 UN/ML 3 ML VIAL SUBQ PRN ×3 (07:50→22:08)
[2018-10-20] MEDS: RIVAROXABAN 10 MG TAB PO SCH (09:05)
[2018-10-20] MEDS: METOPROLOL SUCC XL 50 MG TABCR 50 MG TAB.ER.24H PO SCH (09:05)
[2018-10-20] MEDS: GABAPENTIN 300 MG CAP PO SCH ×3 (09:05→21:31)
[2018-10-20] MEDS: ALLOPURINOL 300 MG TAB PO SCH (09:05)
[2018-10-20] MEDS: predniSONE 20 MG TAB PO SCH (09:05)
[2018-10-20] MEDS: PANTOPRAZOLE SOD 40 MG TABEC PO SCH (09:06)
[2018-10-20] MEDS: DIGOXIN 0.125 MG TAB PO SCH (09:06)
[2018-10-20] MEDS: PARoxetine HCL 20 MG TAB PO SCH (09:06)
[2018-10-20] MEDS: ATORVASTATIN 40 MG TAB PO SCH (09:06)
[2018-10-20] MEDS: NYSTATIN 100,000 U/GM PWD 15GM TP SCH ×2 (09:07→21:32)
[2018-10-20] MEDS: DICYCLOMINE HCL 10 MG CAP PO SCH ×4 (09:07→21:32)
[2018-10-20] MEDS: PAROXETINE HCL 10 MG TABLET PO SCH (09:07)
[2018-10-20] MEDS ORDERED: predniSONE 20 MG TAB PO ONE (10:20)
[2018-10-20] MEDS: ACETAMINOPHEN 500 MG TAB PO PRN (11:10)
[2018-10-20] MEDS: FUROSEMIDE 20 MG TAB PO SCH (11:10)
[2018-10-20 11:13] VITALS: BP 150/90
--- NOTE | 2018-10-20 11:41 | Hospitalist Progress Note ---
Subjective Progress Notes Subjective She c/o persistent dyspnea. No CP. Physical Exam Vital Signs Date Time Temp Pulse Resp B/P (MAP) Pulse Ox O2 Delivery O2 Flow Rate FiO2 10/20/18 11:13 98.1 70 16 150/90 (110) 92 Nasal Cannula 6.0 10/20/18 05:17 50.0 Intake and Output 10/20/18 07:00 Intake Total 120 ml Output Total 2800 ml Balance -2680 ml Intake Oral 120 ml Output Urine Total 2800 ml # Voids 4 # Bowel Movements 1 General Appearance: Alert, Awake Cardiovascular: Other (Irregular distant tones) Respiratory: Other (Diminished throughout with soft expiratory wheezes) GI: Soft and Non-Tender Extremities: Warm, Perfused, Edema (trace) Result Diagram: 10/19/1840 10/20/18 0548 Assessment and Plan Problems: (1) Acute exacerbation of chronic obstructive pulmonary disease (COPD) Status: Acute Assessment & Plan: She did present with increased shortness of breath that started a day after she completed her previous prednisone taper. She is on D uoNeb, Xopenex PRN and steroids. She is also requiring BiPAP at night. She will likely require either a more prolonged taper or chronic low dose prednisone to help prevent future exacerbations. (2) Acute heart failure with preserved ejection fraction Assessment & Plan: Her chest x-ray did show findings consistent with pulmonary edema and CHF. She had an echocardiogram, which showed an ejection fraction of 55-60%, during her last admission. Her admitting weight was also increased several Kg since her last discharge. She has received intermittent doses of Lasix. Her weight is still elevated compared to her last discharge weight 118Kg. Will place her on scheduled Lasix 20mg PO qday. (3) DM2 (diabetes mellitus, type 2) Assessment & Plan: She is on chronic treatment with Lantus, which has been increased during this admission. She is also on sliding scale level #3. (4) CKD (chronic kidney disease) stage 3, GFR 30-59 ml/min Status: Chronic (5) Atrial fibrillation Status: Chronic Assessment & Plan: She is on chronic treatment with digoxin, metoprolol, and Xarelto. (6) HTN (hypertension) Status: Chronic Assessment & Plan: She is on chronic treatment with lisinopril, which has been on hold. Monitor. May need to resume. (7) Gout Status: Chronic Assessment & Plan: She is on chronic treatment with allopurinol. (8) Hypothyroid Status: Chronic Assessment & Plan: She is on chronic treatment with Synthroid. (9) Obesity, morbid, BMI 50 or higher Status: Chronic Exam Sepsis Risk: No Definite Risk Problem Qualifiers (1) Atrial fibrillation: Atrial fibrillation type: chronic Qualified Codes: I48.2 - Chronic atrial fibrillation BALWINDER DIAMOND MD October 20, 2018 11:41
--- NOTE | 2018-10-20 12:55 | NUR ---
Occupational Therapy Impression Pt alert and agreeable to OT tx. Reports a sore throat but otherwise no concerns. Mod (I) supine to sit with HOB raised and bed rail. SBA ambulation x15ft with RW. Independent donning socks. Declined toileting at this time. SpO2 WNL on 6L. Pt is at baseline for mobility and ADLs. All skilled OT goals met. Pt declines further needs for discharge home, reports adequate assist from spouse. Declined HH. Recommend discharge home when medically appropriate. Occupational Therapy Goals Patient's Goal
[2018-10-20 14:42] VITALS: BP 150/90
[2018-10-20 19:28] VITALS: BP 157/80
[2018-10-20] MEDS: INSULIN GLARGINE 100 U/ML 3 ML PEN SUBQ SCH (22:08)
[2018-10-20 23:02] VITALS: BP 158/102
[2018-10-21 02:26] VITALS: BP 168/87
[2018-10-21] MEDS: BUDESO/FORMOT 160/4.5 MCG 6 GM INH SCH ×2 (05:35→16:44)
[2018-10-21] MEDS: ALBUTEROL/IPRATROPIUM 3 ML NEB NEB SCH ×4 (05:36→16:44)
[2018-10-21] MEDS: LEVOTHYROXINE SOD 0.088 MG TAB PO SCH (05:54)
[2018-10-21 07:20] VITALS: BP 169/104
[2018-10-21] MEDS: INSULIN HUM LISPRO 100 UN/ML 3 ML VIAL SUBQ PRN ×4 (07:33→21:00)
[2018-10-21] MEDS: RIVAROXABAN 10 MG TAB PO SCH (09:20)
[2018-10-21] MEDS: NYSTATIN 100,000 U/GM PWD 15GM TP SCH ×2 (09:20→21:02)
[2018-10-21] MEDS: ALLOPURINOL 300 MG TAB PO SCH (09:20)
[2018-10-21] MEDS: predniSONE 20 MG TAB PO SCH (09:20)
[2018-10-21] MEDS: PAROXETINE HCL 10 MG TABLET PO SCH (09:20)
[2018-10-21] MEDS: FUROSEMIDE 20 MG TAB PO SCH (09:20)
[2018-10-21] MEDS: DICYCLOMINE HCL 10 MG CAP PO SCH ×4 (09:20→21:01)
[2018-10-21] MEDS: PANTOPRAZOLE SOD 40 MG TABEC PO SCH (09:20)
[2018-10-21] MEDS: GABAPENTIN 300 MG CAP PO SCH ×3 (09:20→21:01)
[2018-10-21] MEDS: DIGOXIN 0.125 MG TAB PO SCH (09:20)
[2018-10-21] MEDS: ATORVASTATIN 40 MG TAB PO SCH (09:20)
[2018-10-21] MEDS: PARoxetine HCL 20 MG TAB PO SCH (09:20)
[2018-10-21] MEDS: METOPROLOL SUCC XL 50 MG TABCR 50 MG TAB.ER.24H PO SCH (09:20)
[2018-10-21] MEDS: ACETAMINOPHEN 500 MG TAB PO PRN (09:41)
[2018-10-21 11:15] VITALS: BP 130/84
--- NOTE | 2018-10-21 12:22 | Hospitalist Progress Note ---
Subjective Progress Notes Subjective She reports continued SOB. Glucose up to 516 last night. Physical Exam Vital Signs Date Time Temp Pulse Resp B/P (MAP) Pulse Ox O2 Delivery O2 Flow Rate FiO2 10/21/18 11:15 97.9 76 18 130/84 (99) 91 Oxy Mask 5.0 10/21/18 05:30 50.0 Intake and Output 10/21/18 07:00 Intake Total 840 ml Output Total 125 ml Balance 715 ml Intake Oral 840 ml Output Urine Total 125 ml # Voids 9 # Bowel Movements 5 General Appearance: Alert, Awake, No Acute Distress Respiratory: Clear to Auscultation (except she has course BS with deep breaths) Extremities: Edema (trace to 1+ pitting in shins) Result Diagram: 10/19/18 0540 10/20/182140 Assessment and Plan Problems: (1) Acute exacerbation of chronic obstructive pulmonary disease (COPD) Status: Acute Assessment & Plan: She did present with increased shortness of breath that started a day after she completed her previous prednisone taper. She is on DuoNeb, Xopenex PRN and prednisone. Lungs are fairly clear today and she is on her baseline O2 requirement. She is also requiring BiPAP at night. She will likely require either a more prolonged taper or chronic low dose prednisone to help prevent future exacerbations. (2) Acute heart failure with preserved ejection fraction Assessment & Plan: Her chest x-ray did show findings consistent with pulmonary edema and CHF. She had an echocardiogram, which showed an ejection fraction of 55-60%, during her last admission. Her admitting weight was also increased several Kg since her last discharge. She has received intermittent doses of Lasix. Her weight is still elevated compared to her last discharge weight 118Kg. Will place her on scheduled Lasix 20mg PO qday. (3) DM2 (diabetes mellitus, type 2) Assessment & Plan: She is on chronic treatment with Toujeo 160 units daily. She is on Lantus 35 units, currently. Will increase to 45 units. She is also on sliding scale level #3. (4) CKD (chronic kidney disease) stage 3, GFR 30-59 ml/min Status: Chronic (5) HTN (hypertension) Status: Chronic Assessment & Plan: She is on chronic treatment with lisinopril, which has been on hold. Restarting today. BMP tomorrow. (6) Atrial fibrillation Status: Chronic Assessment & Plan: She is on chronic treatment with digoxin, metoprolol, and Xarelto. (7) Gout Status: Chronic Assessment & Plan: She is on chronic treatment with allopurinol. (8) Hypothyroid Status: Chronic Assessment & Plan: She is on chronic treatment with Synthroid. (9) Obesity, morbid, BMI 50 or higher Status: Chronic Exam Sepsis Risk: No Definite Risk Problem Qualifiers (1) Atrial fibrillation: Atrial fibrillation type: chronic Qualified Codes: I48.2 - Chronic atrial fibrillation SOURAV ROLLINS MD October 21, 2018 12:22
[2018-10-21] MEDS: LISINOPRIL 10 MG TAB PO SCH (12:40)
[2018-10-21 15:03] VITALS: BP 134/61
--- NOTE | 2018-10-21 15:43 | Medical Nutrition Therapy ---
Nutrition Anthropometrics Height (Inches): 62 Weight (Pounds): 268 Weight (Calculated Kilograms): 121.563 BMI: 49.5 Cecil Nutrition Score: Adequate Cecil Nutrition Risk Score: 16 Dietary Referral Nutrition Risk Factors: Nutrition Risk Comment: Nutritional Diagnosis Nutritional Risk Acuity 2: CHF w/Complication, Blood Glucose > 300mg/dl Nutritional Risk Acuity 3: Morbid Obesity, COPD Unstable Past Medical History: HX of COPD, Atril Fib, Sleep Apnea, T2DM, HTN, Hypothyroidism Nutritional Acuity: 2-Moderate Nutrition Diagnosis: Decreased Nutrient Needs Nutrition Etiology: Physiological Causes Nutrition Problem/Etiology/Sym: Decreased Na and fluid needs r/t dx CHF and edema. Adjusted Energy Requirement Re: 1515 (HB adj for obesity) Protein Requirement: 73 (1gm/kg ABW) Fluid Requirement: 1825 (25 ml/kg ABW) Diet Type: Fluid Restricted Nutrition Intervention: Cont diet as ordered (pt may benefit with ADA diet added), Encourage intake Drug: Diuretics Nutrition Monitoring & Eval RD Patient Assessment Time: [address] Assessment Type: RD Re-Assessment Patient Nutrition Acuity: 2-Moderate Follow Up Date: October 26, 2018 Nutritional Comment: 10/16 Pt admitted for COPD, CHF. Pt zabala 1+ edema BLE. Wt is up 11# from 09/29/18. BG elevated up to 369. Alb 3.6. Pt on K+ depleting duiretic but K+ is WNR at 5. Pt on fluid resticted diet. Pt has dx T2DM, reommend adding ADA diet to fluid restictions. No curretn intake recorded. Will cont to monitor and encourage intake. APPLE 10/21 Pt cont on SUZANNE, fluid resticted diet. Recommend add diabetic diet to assist with elevated BG. RBG ranging 200-500's. Pt is on prednisone which may be contributing to elevated BG. Pt is recieving insulin. Intake average 90%. Wt is down 8# but pt cont 2+ edema LE. Alb 3.2. Will cont to monitor and encourage intake. SHERLEY STILL October 21, 2018 15:43
[2018-10-21 20:02] VITALS: BP 142/67
[2018-10-21] MEDS: INSULIN GLARGINE 100 U/ML 3 ML PEN SUBQ SCH (21:01)
[2018-10-22 01:03] VITALS: BP 147/93
[2018-10-22 03:41] VITALS: BP 146/88
[2018-10-22] MEDS: ALBUTEROL/IPRATROPIUM 3 ML NEB NEB SCH ×4 (05:26→18:06)
[2018-10-22] MEDS: BUDESO/FORMOT 160/4.5 MCG 6 GM INH SCH ×2 (05:26→18:06)
[2018-10-22] MEDS: LEVOTHYROXINE SOD 0.088 MG TAB PO SCH (06:16)
[2018-10-22 07:02] VITALS: BP 148/85
[2018-10-22] MEDS: METOPROLOL SUCC XL 50 MG TABCR 50 MG TAB.ER.24H PO SCH (09:37)
[2018-10-22] MEDS: GABAPENTIN 300 MG CAP PO SCH ×3 (09:37→21:21)
[2018-10-22] MEDS: RIVAROXABAN 10 MG TAB PO SCH (09:38)
[2018-10-22] MEDS: DICYCLOMINE HCL 10 MG CAP PO SCH ×4 (09:38→21:22)
[2018-10-22] MEDS: ACETAMINOPHEN 500 MG TAB PO PRN (09:39)
[2018-10-22] MEDS: ALLOPURINOL 300 MG TAB PO SCH (09:39)
[2018-10-22] MEDS: DIGOXIN 0.125 MG TAB PO SCH (09:39)
[2018-10-22] MEDS: PAROXETINE HCL 10 MG TABLET PO SCH (09:40)
[2018-10-22] MEDS: PARoxetine HCL 20 MG TAB PO SCH (09:40)
[2018-10-22] MEDS: LISINOPRIL 10 MG TAB PO SCH (09:40)
[2018-10-22] MEDS: FUROSEMIDE 20 MG TAB PO SCH (09:40)
[2018-10-22] MEDS: NYSTATIN 100,000 U/GM PWD 15GM TP SCH ×2 (09:41→21:23)
[2018-10-22] MEDS: predniSONE 20 MG TAB PO SCH (09:41)
[2018-10-22] MEDS: PANTOPRAZOLE SOD 40 MG TABEC PO SCH (09:42)
[2018-10-22] MEDS: ATORVASTATIN 40 MG TAB PO SCH (09:42)
[2018-10-22] MEDS ORDERED: PRED-1 PO (10:52)
[2018-10-22] MEDS ORDERED: INSU100I30 SUBQ (10:52)
--- NOTE | 2018-10-22 10:59 | Hospitalist Depart ---
Discharge Summary Reason for Hosp/Final Diag: (1) Acute exacerbation of chronic obstructive pulmonary disease (COPD) Status: Acute Hospital Course & Plan: She did present with increased shortness of breath that started a day after she completed her previous prednisone taper. She was treated with nebulizers and steroids. She will likely require either a more prolonged taper or chronic low dose prednisone to help prevent future exacerbations. (2) Acute heart failure with preserved ejection fraction Hospital Course & Plan: Her chest x-ray did show findings consistent with pulmonary edema and CHF. She had an echocardiogram, which showed an ejection fraction of 55-60%, during her last admission. Her admitting weight was also increased several Kg since her last discharge. She has received intermittent doses of Lasix. She was instructed to check her weights daily and to take a dose of Lasix if her weight is increasing more than 2 lbs. (3) DM2 (diabetes mellitus, type 2) Hospital Course & Plan: She will discharge on Lantus. (4) CKD (chronic kidney disease) stage 3, GFR 30-59 ml/min Status: Chronic (5) HTN (hypertension) Status: Chronic Hospital Course & Plan: She is on chronic treatment with lisinopril. (6) Atrial fibrillation Status: Chronic Hospital Course & Plan: She is on chronic treatment with digoxin, metoprolol, and Xarelto. (7) Gout Status: Chronic Hospital Course & Plan: She is on chronic treatment with allopurinol. (8) Hypothyroid Status: Chronic Hospital Course & Plan: She is on chronic treatment with Synthroid. (9) Obesity, morbid, BMI 50 or higher Status: Chronic Departure Latest Vital Signs Vital Signs 10/21/18 10/22/18 10/22/18 10/22/18 05:30 07:02 09:06 09:39 Temp 98.2 Pulse 76 Resp 18 B/P (MAP) 148/85 (106) FiO2 50.0 Weight (Pounds): 270 Weight (Ounces): 6.0 Result Diagram: 10/19/18 0540 10/22/18 0543 Condition: Improved Discharge: Home, Self Care Discharge Code Status: DNI Discharge Instructions Home Meds Active Scripts Furosemide (LASIX) 40 Mg Tablet, 1 TAB PO DAILY PRN for Swelling, #30 TAB Prov:JUAN C SMITH DO 10/22/18 Prednisone 10 Mg Tab (PREDNISONE 10 MG TAB) 10 Mg Tablet, 10 MG PO DIRECTED, #40 TAB Take 4 tab daily x 3 days, then 3 tab daily x 3 days, then 2 tab daily x 3 days, then 1 tab daily Prov:JUAN C SMITH DO 10/22/18 Insulin Glargine 100 Un/Ml Pen (LANTUS SOLOSTAR PEN) 100 Unit/1 Ml Insuln.pen, 45 UNIT SUBQ QHS, #10 ML Prov:JUAN C SMITH DO 10/22/18 Budesonide/Formoterol Fumarate (SYMBICORT 160-4.5 MCG INHALER) 10.2 Gm Inh, 2 EACH INH BIDR for 30 Days, #1 INH 1 Refill Two puffs two times a day. Prov:BALWINDER DIAMOND MD 12/09/16 Reported Medications Fluticasone Prop 50 Mcg Ns (FLONASE 50 MCG NS) 16 Gm [place].susp, 2 SPRAYS NS QDAY PRN for ALLERGY SYMPTOMS, BOT 10/18/18 Dextromethorphan Polistirex (DELSYM) 30 Mg/5 Ml [place].er.12h, 30 MG PO QHS 10/18/18 Acetaminophen (TYLENOL) 325 Mg Tablet, 2 TAB PO Q8H PRN for PAIN, TAB 10/18/18 Levothyroxine Sodium (SYNTHROID) 88 Mcg Tablet, 88 MCG PO QDAY 10/18/18 Fenofibrate (TRICOR) 48 Mg Tab, 67 MG PO QDAY, TAB 10/18/18 Lisinopril (LISINOPRIL) 10 Mg Tablet, 10 MG PO QDAY, TAB 10/01/18 Allopurinol (ZYLOPRIM) 300 Mg Tablet, 300 MG PO QDAY, TAB 10/01/18 Rivaroxaban 20 Mg (XARELTO 20 MG) 20 Mg Tablet, 1 TAB PO QDAY 08/16/18 Gabapentin (GABAPENTIN) 600 Mg Tablet, 2 TAB PO TID 08/16/18 Metoprolol Succinate (METOPROLOL SUCCINATE) 100 Mg Tab.er.24h, 1 TAB PO QDAY 08/16/18 Digoxin (DIGOXIN) 125 Mcg Tablet, 125 MCG PO DAILY 07/04/14 Omeprazole (OMEPRAZOLE) 20 Mg Tablet.dr, 20 MG PO QDAY TAKE ONE TABLET BY MOUTH ONCE A DAY 07/03/14 Paroxetine Hcl (PAROXETINE HCL) 40 Mg Tablet, 1 TAB PO DAILY, #30 07/02/14 Atorvastatin Calcium (ATORVASTATIN CALCIUM) 40 Mg Tablet, 1 TAB PO DAILY, #90 07/02/14 Discontinued Reported Medications Insulin Glargine,Hum.rec.anlog (Toujeo Solostar) 300 Unit/1 Ml Insuln.pen, 160 UNITS SUBQ QDAY 10/16/18 Nortriptyline Hcl (NORTRIPTYLINE HCL) 25 Mg Cap, 25 MG PO HS, CAP 10/18/18 Levothyroxine Sodium (LEVOTHYROXINE SODIUM) 88 Mcg Tablet, 1 TAB PO DAILY, #90 07/02/14 Fenofibrate,Micronized (FENOFIBRATE) 67 Mg Capsule, 1 CAP PO QDAY with food 08/16/18 Canagliflozin (INVOKANA) 300 Mg Tablet, 1 TAB PO DAILY 12/06/16 Discontinued Scripts Dicyclomine Hcl (DICYCLOMINE HCL) 20 Mg Tablet, 20 MG PO QID for diarrhea, #20 TAB 0 Refills Prov:SANTIAGO SEGURA MD 08/20/18 Prednisone 10 Mg Tab (PREDNISONE 10 MG TAB) 10 Mg Tablet, 10 MG PO DIRECTED, #30 TAB Take 4 tab daily x 3 days, then 3 tab daily x 3 days, then 2 tab daily x 3 days, then 1 tab daily x 3 days. Prov:JUAN C SMITH DO 10/03/18 Insulin Glargine 100 Un/Ml Pen (LANTUS SOLOSTAR PEN) 100 Unit/1 Ml Insuln.pen, 20 UNIT SUBQ QHS, #1 PEN Prov:JUAN C SMITH DO 10/03/18 Diet: Diabetic Activity: As Tolerated Copies to: JUAN C CARRANZA MD ; Venous Thromboembolism Antithrombotics Is Pt On Any Antithrombotics?: Yes Problem Qualifiers (1) HTN (hypertension): Hypertension type: essential hypertension Qualified Codes: I10 - Essential (primary) hypertension (2) Atrial fibrillation: Atrial fibrillation type: chronic Qualified Codes: I48.2 - Chronic atrial fibrillation JUAN C SMITH DO October 22, 2018 10:59
[2018-10-22] MEDS ORDERED: FURO40TA35 PO (11:00)
[2018-10-22 11:54] VITALS: BP 137/82
[2018-10-22] MEDS: INSULIN HUM LISPRO 100 UN/ML 3 ML VIAL SUBQ PRN ×3 (11:58→21:23)
[2018-10-22 15:18] VITALS: BP 124/70
[2018-10-22] MEDS: INSULIN GLARGINE 100 U/ML 3 ML PEN SUBQ SCH (21:22)
[2018-10-22 23:38] VITALS: BP 105/97
[2018-10-23 00:44] VITALS: BP 117/70
[2018-10-23] MEDS: LEVOTHYROXINE SOD 0.088 MG TAB PO SCH (05:47)
[2018-10-23] MEDS: BUDESO/FORMOT 160/4.5 MCG 6 GM INH SCH (05:57)
[2018-10-23] MEDS: ALBUTEROL/IPRATROPIUM 3 ML NEB NEB SCH ×2 (05:57→09:08)
[2018-10-23 07:28] VITALS: BP 140/93
[2018-10-23 07:42] VITALS: BP 150/77
[2018-10-23] MEDS: NYSTATIN 100,000 U/GM PWD 15GM TP SCH (09:00)
[2018-10-23] MEDS: ACETAMINOPHEN 500 MG TAB PO PRN (09:18)
[2018-10-23] MEDS: PANTOPRAZOLE SOD 40 MG TABEC PO SCH (09:18)
[2018-10-23] MEDS: METOPROLOL SUCC XL 50 MG TABCR 50 MG TAB.ER.24H PO SCH (09:18)
[2018-10-23] MEDS: GABAPENTIN 300 MG CAP PO SCH (09:19)
[2018-10-23] MEDS: ALLOPURINOL 300 MG TAB PO SCH (09:20)
[2018-10-23] MEDS: LISINOPRIL 10 MG TAB PO SCH (09:20)
[2018-10-23] MEDS: FUROSEMIDE 20 MG TAB PO SCH (09:22)
[2018-10-23] MEDS: predniSONE 20 MG TAB PO SCH (09:22)
[2018-10-23] MEDS: RIVAROXABAN 10 MG TAB PO SCH (09:22)
[2018-10-23] MEDS: ATORVASTATIN 40 MG TAB PO SCH (09:22)
[2018-10-23] MEDS: PAROXETINE HCL 10 MG TABLET PO SCH (09:23)
[2018-10-23] MEDS: PARoxetine HCL 20 MG TAB PO SCH (09:23)
[2018-10-23] MEDS: DICYCLOMINE HCL 10 MG CAP PO SCH ×2 (09:26→12:49)
[2018-10-23] MEDS: DIGOXIN 0.125 MG TAB PO SCH (09:26)
[2018-10-23] MEDS: INSULIN HUM LISPRO 100 UN/ML 3 ML VIAL SUBQ PRN (11:39)
== END 2018-10-23 12:45 | disposition home or self-care (01) | DRG 189 ==
LOC: ER 21:18 → ICU 23:14 → MED 10-16 15:30
PROVIDERS: ADMIT Family Medicine; ATTEND Family Medicine
PROC: 5A09357 Assistance with Respiratory Ventilation, Less than 24 Consecutive Hours, Continuous Positive Airway Pressure (ICD-10-PCS; principal; 2018-10-15)
DX: J96.01 Acute respiratory failure with hypoxia (principal); I50.31 Acute diastolic (congestive) heart failure; J44.1 Chronic obstructive pulmonary disease with (acute) exacerbation; I13.0 Hypertensive heart and chronic kidney disease with heart failure and stage 1 through stage 4 chronic kidney disease, or unspecified chronic kidney disease; Z68.43 Body mass index [BMI] 50.0-59.9, adult; E11.65 Type 2 diabetes mellitus with hyperglycemia; E11.22 Type 2 diabetes mellitus with diabetic chronic kidney disease; N18.3 Chronic kidney disease, stage 3 (moderate); I48.2 Chronic atrial fibrillation; M1A.9XX0 Chronic gout, unspecified, without tophus (tophi); E03.9 Hypothyroidism, unspecified; E66.01 Morbid (severe) obesity due to excess calories; I25.10 Atherosclerotic heart disease of native coronary artery without angina pectoris; K57.90 Diverticulosis of intestine, part unspecified, without perforation or abscess without bleeding; N20.0 Calculus of kidney; Z79.01 Long term (current) use of anticoagulants; Z98.1 Arthrodesis status; Z87.891 Personal history of nicotine dependence; Z79.4 Long term (current) use of insulin; Z90.49 Acquired absence of other specified parts of digestive tract
CPT/HCPCS: 36415; 36416; 71045; 80162; 82040; 82247; 82310; 82374; 82435; 82565; 82803; 82947; 82948; 83605; 83880; 84075; 84132; 84155; 84295; 84450; 84460; 84484; 84520; 85025; 85379; 87040; 93005; 94640; 94660; 94667; 94668; 96361; 96374; 96375; 97162; 97165; 99291; J1815; J1940; J2405; J2930; J7030; J7512; J7613; Q0163

== ENCOUNTER → 2018-10-15 | Outpatient (CLI) | payer MEDICARE ==
[2018-09-30 09:12] VITALS: BMI 47.5
[~2018-10-15] MED LIST changes: +ACET-1966 PO; +ALLO-119 PO; +DEXT30SU27 PO; +FENO48TA15 PO; +FLUT16SP19 NS; +FURO40TA35 PO; +INSU100I30 SUBQ; +INSU300I SUBQ; +LEVO88TA43 PO; +NOR25 PO; +PRED-1 PO
== END ==
LOC: AMB 20:50
PROVIDERS: ATTEND Nurse Practitioner
DX: J44.1 Chronic obstructive pulmonary disease with (acute) exacerbation (principal); R09.02 Hypoxemia
CPT/HCPCS: A0425; A0427

== ENCOUNTER 2018-11-16 20:34 | Inpatient (IN) | payer MEDICARE ==
[2018-09-30 09:12] VITALS: Wt 122.6 kg
[~2018-11-16 20:34] MED LIST changes: +ACET-1966 PO; +DEXT30SU27 PO; +FENO48TA15 PO; +FLUT16SP19 NS; +FURO40TA35 PO; +LEVO88TA43 PO; +NOR25 PO
[2018-11-16] MEDS ORDERED: methylPREDNIS SUCC 125 MG/2ML ONE (20:45)
--- NOTE | 2018-11-16 20:53 | ER Report ---
History and Physical Time Seen By MD: 20:47 Hx. of Stated Complaint: PT PRESENTS IN RESPIRATORY DISTRESS. HPI/ROS CHIEF COMPLAINT: respiratory distress HISTORY OF PRESENT ILLNESS: This is a 78 year old female. She had severe onset of shortness of breath earlier today. Trying nebulizers without relief. Still on Prednisone taper from her hospitalization last month. No fevers noted. Severe nonproductive cough. Worsening through the day. On arrival found to be 70% on room air. Improved sats on non-rebreather, but still struggling. No nausea or vomiting. Chest is tight. Difficulty talking because of so short of breath. REVIEW OF SYSTEMS: Constitutional: No fever or chills. Eyes: No vision changes. ENT: No sore throat. Cardiovascular: As above. Respiratory: As above. Gastrointestinal: No abdominal pain. No nausea or vomiting. Genitourinary: No dysuria. No frequency Musculoskeletal: Some rib pain from breathing so hard. Skin: No rashes. Neurological: No numbness. Feels weak overall. Allergies: Coded Allergies: pentazocine (Verified Allergy, Mild, NAUSEA/VOMITING, 10/15/18) Uncoded Allergies: STRAW LOU (Allergy, Severe, RESP PROBLEMS, 01/11/08) TAPE (Allergy, Mild, BLISTERS, 12/05/07) Home Meds Active Scripts Furosemide (LASIX) 40 Mg Tablet, 1 TAB PO DAILY PRN for Swelling, #30 TAB Prov:JUAN C SMITH DO 10/22/18 Prednisone 10 Mg Tab (PREDNISONE 10 MG TAB) 10 Mg Tablet, 10 MG PO DIRECTED, #40 TAB Take 4 tab daily x 3 days, then 3 tab daily x 3 days, then 2 tab daily x 3 days, then 1 tab daily Prov:JUAN C SMITH DO 10/22/18 Insulin Glargine 100 Un/Ml Pen (LANTUS SOLOSTAR PEN) 100 Unit/1 Ml Insuln.pen, 45 UNIT SUBQ QHS, #10 ML Prov:JUAN C SMITH DO 10/22/18 Budesonide/Formoterol Fumarate (SYMBICORT 160-4.5 MCG INHALER) 10.2 Gm Inh, 2 EACH INH BIDR for 30 Days, #1 INH 1 Refill Two puffs two times a day. Prov:BALWINDER MORTON MD 12/09/16 Reported Medications Fluticasone Prop 50 Mcg Ns (FLONASE 50 MCG NS) 16 Gm [place].susp, 2 SPRAYS NS QDAY PRN for ALLERGY SYMPTOMS, BOT 10/18/18 Dextromethorphan Polistirex (DELSYM) 30 Mg/5 Ml Massiel.er.12h, 30 MG PO QHS 10/18/18 Acetaminophen (TYLENOL) 325 Mg Tablet, 2 TAB PO Q8H PRN for PAIN, TAB 10/18/18 Levothyroxine Sodium (SYNTHROID) 88 Mcg Tablet, 88 MCG PO QDAY 10/18/18 Fenofibrate (TRICOR) 48 Mg Tab, 67 MG PO QDAY, TAB 10/18/18 Lisinopril (LISINOPRIL) 10 Mg Tablet, 10 MG PO QDAY, TAB 10/01/18 Allopurinol (ZYLOPRIM) 300 Mg Tablet, 300 MG PO QDAY, TAB 10/01/18 Rivaroxaban 20 Mg (XARELTO 20 MG) 20 Mg Tablet, 1 TAB PO QDAY 08/16/18 Gabapentin (GABAPENTIN) 600 Mg Tablet, 2 TAB PO TID 08/16/18 Metoprolol Succinate (METOPROLOL SUCCINATE) 100 Mg Tab.er.24h, 1 TAB PO QDAY 08/16/18 Digoxin (DIGOXIN) 125 Mcg Tablet, 125 MCG PO DAILY 07/04/14 Omeprazole (OMEPRAZOLE) 20 Mg Tablet.dr, 20 MG PO QDAY TAKE ONE TABLET BY MOUTH ONCE A DAY 07/03/14 Paroxetine Hcl (PAROXETINE HCL) 40 Mg Tablet, 1 TAB PO DAILY, #30 07/02/14 Atorvastatin Calcium (ATORVASTATIN CALCIUM) 40 Mg Tablet, 1 TAB PO DAILY, #90 07/02/14 Reviewed Nurses Notes: Yes Hx Smoking: Yes Smoking Status: Former Smoker Exposure to Second Hand Smoke?: No Hx Substance Use Disorder: No Hx Alcohol Use: No Constitutional Vital Sign - Last 24 Hours 11/16/18 11/16/18 11/16/18 11/16/18 20:35 20:40 20:41 20:43 Temp 96.4 Pulse 108 145 Resp 30 28 B/P (MAP) 203/147 203/147 (165) 201/141 (161) Pulse Ox 70 O2 Delivery Nasal Cannula 11/16/18 11/16/18 11/16/18 11/16/18 20:45 20:48 20:49 21:00 Pulse 130 B/P (MAP) 175/136 (149) 153/83 (106) Pulse Ox 92 O2 Flow Rate 80.0 11/16/18 11/16/18 11/16/18 11/16/18 21:04 21:15 21:19 21:22 Pulse 113 105 B/P (MAP) 166/103 (124) Pulse Ox 97 97 O2 Flow Rate 7.0 11/16/18 11/16/18 11/16/18 11/16/18 21:24 21:30 21:39 21:45 Pulse 104 106 Resp 18 26 B/P (MAP) 151/115 (127) 134/90 (105) Pulse Ox 95 98 11/16/18 11/16/18 11/16/18 11/16/18 21:54 22:00 22:05 22:35 Pulse 105 96 Resp 22 23 B/P (MAP) 148/92 (110) Pulse Ox 96 91 O2 Flow Rate 12.0 11/16/18 11/16/18 11/16/18 11/16/18 22:35 22:45 22:50 23:00 Pulse 101 104 Resp 27 13 B/P (MAP) 133/99 (110) 137/90 (106) Pulse Ox 90 94 11/16/18 11/16/18 11/16/18 11/16/18 23:05 23:10 23:15 23:25 Pulse 100 104 99 Resp 17 20 17 B/P (MAP) 140/89 (106) Pulse Ox 94 94 87 11/16/18 11/16/18 11/16/18 23:30 23:40 23:45 Pulse 104 Resp 26 B/P (MAP) 136/84 (101) 141/84 (103) Pulse Ox 97 Physical Exam General Appearance: The patient is alert. Acute distress from respiratory. Eyes: Pupils are equal, round. No pallor, injection or icterus. ENT: Mucous membranes are dry. Normal oral mucosa. Posterior oropharynx has mild erythema. Neck: Supple and non tender. Respiratory: Distress. Increase work of breathing. Diffuse wheezing. No rales noted. Cardiovascular: Tachycardia, regular. No murmurs, gallops or rubs appreciated. Gastrointestinal: Abdomen is soft and non tender. Nondistended. Neurological: Alert and oriented x3. No focal neurologic deficits Skin: Warm, diaphoretic. Musculoskeletal: No tenderness in palpation of the cervical, thoracic and lumbar spine. DIFFERENTIAL DIAGNOSIS: After history and physical exam, differential diagnosis was considered for ED shortness breath differential Medical Decision Making Data Points Result Diagram: 11/16/18204611/16/182046 Laboratory Hematology Test 11/16/18 20:47 Red Blood Count 4.44 M/uL (4.17-5.56) Mean Corpuscular Volume 93.9 fL (80.0-96.0) Mean Corpuscular Hemoglobin 30.2 pg (26.0-33.0) Mean Corpuscular Hemoglobin Concent 32.1 g/dL (32.0-36.0) Red Cell Distribution Width 16.2 % (11.5-14.5) Mean Platelet Volume 8.0 fL (7.2-11.1) Neutrophils (%) (Auto) 86.2 % (39.4-72.5) Lymphocytes (%) (Auto) 11.9 % (17.6-49.6) Monocytes (%) (Auto) 1.4 % (4.1-12.4) Eosinophils (%) (Auto) 0.1 % (0.4-6.7) Basophils (%) (Auto) 0.4 % (0.3-1.4) Nucleated RBC Relative Count (auto) 0.9 /100WBC Neutrophils # (Auto) 8.5 K/uL (2.0-7.4) Lymphocytes # (Auto) 1.2 K/uL (1.3-3.6) Monocytes # (Auto) 0.1 K/uL (0.3-1.0) Eosinophils # (Auto) 0.0 K/uL (0.0-0.5) Basophils # (Auto) 0.0 K/uL (0.0-0.1) Nucleated RBC Absolute Count (auto) 0.09 K/uL D-Dimer Quantitative (PE/DVT) 1.25 ug/ml (0-0.50) Sodium Level 140 mmol/L (137-145) Potassium Level 5.1 mmol/L (3.5-5.0) Chloride Level 99 mmol/L (98-107) Carbon Dioxide Level 28 mmol/L (22-31) Blood Urea Nitrogen 19 mg/dl (7-18) Creatinine 1.00 mg/dl (0.52-1.04) Glomerular Filtration Rate Calc 53.8 Random Glucose 440 mg/dl (75-110) Lactate 5.8 mmol/L (0.7-2.1) Calcium Level 9.3 mg/dl (8.4-10.2) Total Bilirubin 1.4 mg/dl (0.2-1.3) Aspartate Amino Transf (AST/SGOT) 75 U/L (0-35) Alanine Aminotransferase (ALT/SGPT) 44 U/L (0-56) Alkaline Phosphatase 130 U/L (0-126) Troponin I < 0.012 ng/ml B-Type Natriuretic Peptide 539 pg/ml (0-100) Total Protein 7.1 g/dl (6.3-8.2) Albumin 3.9 g/dl (3.5-5.0) Digoxin Level < 0.4 ng/ml Digoxin Last Dose Date unk Digoxin Last Dose Time unk Chemistry Test 11/16/18 20:47 White Blood Count 9.9 k/uL (4.5-11.0) Red Blood Count 4.44 M/uL (4.17-5.56) Hemoglobin 13.4 g/dL (12.0-16.0) Hematocrit 41.7 % (34.0-47.0) Mean Corpuscular Volume 93.9 fL (80.0-96.0) Mean Corpuscular Hemoglobin 30.2 pg (26.0-33.0) Mean Corpuscular Hemoglobin Concent 32.1 g/dL (32.0-36.0) Red Cell Distribution Width 16.2 % (11.5-14.5) Platelet Count 399 K/uL (150-450) Mean Platelet Volume 8.0 fL (7.2-11.1) Neutrophils (%) (Auto) 86.2 % (39.4-72.5) Lymphocytes (%) (Auto) 11.9 % (17.6-49.6) Monocytes (%) (Auto) 1.4 % (4.1-12.4) Eosinophils (%) (Auto) 0.1 % (0.4-6.7) Basophils (%) (Auto) 0.4 % (0.3-1.4) Nucleated RBC Relative Count (auto) 0.9 /100WBC Neutrophils # (Auto) 8.5 K/uL (2.0-7.4) Lymphocytes # (Auto) 1.2 K/uL (1.3-3.6) Monocytes # (Auto) 0.1 K/uL (0.3-1.0) Eosinophils # (Auto) 0.0 K/uL (0.0-0.5) Basophils # (Auto) 0.0 K/uL (0.0-0.1) Nucleated RBC Absolute Count (auto) 0.09 K/uL D-Dimer Quantitative (PE/DVT) 1.25 ug/ml (0-0.50) Glomerular Filtration Rate Calc 53.8 Lactate 5.8 mmol/L (0.7-2.1) Calcium Level 9.3 mg/dl (8.4-10.2) Total Bilirubin 1.4 mg/dl (0.2-1.3) Aspartate Amino Transf (AST/SGOT) 75 U/L (0-35) Alanine Aminotransferase (ALT/SGPT) 44 U/L (0-56) Alkaline Phosphatase 130 U/L (0-126) Troponin I < 0.012 ng/ml B-Type Natriuretic Peptide 539 pg/ml (0-100) Total Protein 7.1 g/dl (6.3-8.2) Albumin 3.9 g/dl (3.5-5.0) Digoxin Level < 0.4 ng/ml Digoxin Last Dose Date unk Digoxin Last Dose Time unk Coagulation Test 11/16/18 20:47 D-Dimer Quantitative (PE/DVT) 1.25 ug/ml Toxicology Test 11/16/18 20:47 Digoxin Level < 0.4 ng/ml Digoxin Last Dose Date unk Digoxin Last Dose Time unk EKG/Imaging EKG Interpretation 12 lead EKG: Rhythm: Atrial fibrillation, rate 118 [place]: normal QRS: normal ST segments: normal Imaging Portable chest, one view. HISTORY: Shortness of breath. COMPARISON: 10/16/2018. EKG leads and other pertinent project on the chest. The heart is moderately enlarged. The mediastinum is upper limits of normal in width. Pulmonary vessels are engorged. Interstitial markings are thickened bilaterally. The pleural surfaces are unremarkable. Metal hardware is present in the cervical spine and left proximal humerus. No pneumothorax. IMPRESSION: Moderate cardiomegaly. Mild congestive heart failure. Report Dictated By: Max Currie MD at 11/16/2018 9:32 PM EXAMINATION: CTA of the chest with IV contrast HISTORY: Shortness of breath TECHNIQUE: Pulmonary embolus protocol - Thin axial CT images of the chest were obtained with IV contrast during maximal pulmonary arterial opacification. Reconstruction of the source data includes multiplanar 2D coronal and sagittal reconstructed images, and 3D coronal and sagittal MIP images. Tool Maintenance Technician images have been stored on PACS. One of the following dose optimization techniques was utilized in the performance of this exam: Automated exposure control; adjustment of the mA and/or kV according to the patient's size; or use of an iterative reconstruction technique. Specific details can be referenced in the facility's radiology CT exam operational policy. Contrast: 75 mL of IV Isovue-370. COMPARISON: 09/29/2018. FINDINGS: Pulmonary arteries: The pulmonary arteries are well opacified, without suspicious filling defect. Heart, aorta, and great vessels: Normal caliber thoracic aorta without aneurysm or dissection. Vascular calcifications including coronary artery calcifications. Normal heart size. No pericardial effusion. Lungs and pleura: Moderate right pleural effusion has increased in volume with adjacent atelectasis in the lower lobe. Stable small left pleural effusion with mild left basilar atelectasis. No new suspicious focal consolidation. The central airways are patent. No pneumothorax. Mediastinum and aria: Negative. Visualized upper abdomen: Unremarkable. Chest wall: Negative. Bones: No acute osseous findings in the chest. Multilevel degenerative changes along the thoracic spine. Partially visualized plate and screw fixation along the cervical spine. IMPRESSION: 1. No evidence of pulmonary embolism. 2. Moderate right pleural effusion has increased in volume with a stable small left pleural effusion. Adjacent atelectasis in the lung bases. 3. Coronary artery calcifications Report Dictated By: Tigre Joradn MD at 11/16/2018 10:38 PM ED Course/Re-evaluation Clinical Indication for ER IV: IV Access ED Course Solu-Medrol 125mg given IV. DuoNeb, then BiPAP with 3 inline Albuterol treatments given. Finally starting to breath a little easier. Then switched back to a non-rebreather. Chest x-ray and CTA chest as above. Discussed with Dr. Morton, who accepted the patient for admission. Decision to Disposition Date: Nov 16, 2018 Decision to Disposition Time: 23:33 Depart Departure Latest Vital Signs Vital Signs Date Time Temp Pulse Resp B/P (MAP) Pulse Ox O2 Delivery O2 Flow Rate FiO2 11/16/18 23:45 141/84 (103) 11/16/18 23:40 104 26 97 11/16/18 22:35 12.0 11/16/18 20:40 96.4 Nasal Cannula Core Temperature (Celsius): 37.1 Impression: Primary Impression: Acute exacerbation of chronic obstructive pulmonary disease (COPD) Condition: Condition Unchanged Disposition: Admitted from ER Referrals: JUAN C CARRANZA MD (PCP) FORREST MUNOZ MD Nov 16, 2018 20:53
[2018-11-16] MEDS ORDERED: ALBUTEROL 2.5 MG/3 ML NEB NEB ONE (21:00)
[2018-11-16] MEDS ORDERED: ALBUTEROL/IPRATROPIUM 3 ML NEB NEB ONE (21:00)
[2018-11-16] MEDS ORDERED: MORPHINE 2 MG/ML SYR IVP ONE (21:05)
[2018-11-16] MEDS ORDERED: NITROGLYCERIN OINT 1 GM PKT TP ONE (21:05)
[2018-11-16 21:23] LABS: PLATELET COUNT, AUTOMATED 399 K/uL (150-450)
--- NOTE | 2018-11-16 21:40 | RADIOLOGY IMAGING REPORT ---
FACILITY: [facility] [place] PATIENT NAME: Flower Burk : 1940 MR: [id number] V: [id number] EXAM DATE: ORDERING PHYSICIAN: FORREST MUNOZ TECHNOLOGIST: Location: [facility] Patient: Flower Burk : 1940 Visit/Account:[id number] Date of Sevice: 11/16/2018 Portable chest, one view. HISTORY: Shortness of breath. COMPARISON: 10/16/2018. EKG leads and other pertinent project on the chest. The heart is moderately enlarged. The mediastinum is upper limits of normal in width. Pulmonary vessels are engorged. Interstitial markings are thicke cl bilaterally. The pleural surfaces are unremarkable. Metal hardware is present in the cervical spi ne and left proximal humerus. No pneumothorax. IMPRESSION: Moderate cardiomegaly. Mild congestive heart failure. Report Dictated By: Max Currie MD at 11/16/2018 9:32 PM Report E-Signed By: Max Currie MD at 11/16/2018 9:34 PM WSN:[id number]
[2018-11-16] MEDS ORDERED: IOPAMIDOL 76% 100 ML INFUS BTL 100 ML ONE (22:06)
[2018-11-16] MEDS ORDERED: NS(*) 0.9% 50 ML BAG 50 ML ONE (22:07)
--- NOTE | 2018-11-16 22:49 | RADIOLOGY IMAGING REPORT ---
FACILITY: [facility] [place] PATIENT NAME: Flower Burk : 1940 MR: [id number] V: [id number] EXAM DATE: [id number] ORDERING PHYSICIAN: FORREST MUNOZ TECHNOLOGIST: Location: [facility] Patient: Flower Burk : 1940 Visit/Account:[id number] Date of Sevice: 11/16/2018 EXAMINATION: CTA of the chest with IV contrast HISTORY: Shortness of breath TECHNIQUE: Pulmonary embolus protocol - Thin axial CT images of the chest were obtained with IV con trast during maximal pulmonary arterial opacification. Reconstruction of the source data includes mul tiplanar 2D coronal and sagittal reconstructed images, and 3D coronal and sagittal MIP images. Repres entative images have been stored on PACS. One of the following dose optimization techniques was utilized in the performance of this exam: Autom ated exposure control; adjustment of the mA and/or kV according to the patient's size; or use of an i terative reconstruction technique. Specific details can be referenced in the facility's radiology C T exam operational policy. Contrast: 75 mL of IV Isovue-370. COMPARISON: 09/29/2018. FINDINGS: Pulmonary arteries: The pulmonary arteries are well opacified, without suspicious filling defect. Heart, aorta, and great vessels: Normal caliber thoracic aorta without aneurysm or dissection. Vascu lar calcifications including coronary artery calcifications. Normal heart size. No pericardial effusi on. Lungs and pleura: Moderate right pleural effusion has increased in volume with adjacent atelectasis in the lower lobe. Stable small left pleural effusion with mild left basilar atelectasis. No new susp icious focal consolidation. The central airways are patent. No pneumothorax. Mediastinum and aria: Negative. Visualized upper abdomen: Unremarkable. Chest wall: Negative. Bones: No acute osseous findings in the chest. Multilevel degenerative changes along the thoracic sp ine. Partially visualized plate and screw fixation along the cervical spine. IMPRESSION: 1. No evidence of pulmonary embolism. 2. Moderate right pleural effusion has increased in volume with a stable small left pleural effusion. Adjacent atelectasis in the lung bases. 3. Coronary artery calcifications Report Dictated By: Tigre Jordan MD at 11/16/2018 10:38 PM Report E-Signed By: Tigre Jordan MD at 11/16/2018 10:45 PM WSN:[id number]
--- NOTE | 2018-11-17 00:01 | EKG ---
FACILITY: [facility] [place] PATIENT NAME: CIELO OLIVA : [id number] MR: [id number] V: [id number] EXAM DATE: ORDERING PHYSICIAN: FORREST MUNOZ TECHNOLOGIST: AZAM Test Reason : DYSPNEA Blood Pressure : / mmHG Vent. Rate : 118 BPM Atrial Rate : 125 BPM P-R Int : 000 ms QRS Dur : 080 ms QT Int : 298 ms P-R-T Axes : 000 024 129 degrees QTc Int : 417 ms Atrial fibrillation Abnormal ECG Diffuse artifact - repeat EKG if needed Confirmed by BALWINDER DIAMOND ([id number]) on 11/17/2018 12:56:18 AM Referred By: Confirmed By:BALWINDER DIAMOND
[2018-11-17] MEDS ORDERED: NS(*) 0.9% 1000 ML BAG 1,000 ML IV PRN (00:17)
[2018-11-17] MEDS ORDERED: ALBUTEROL 2.5 MG/3 ML NEB NEB PRN (00:20)
--- NOTE | 2018-11-17 00:42 | History & Physical ---
History of Present Illness Chief Complaint Short of breath History of Present Illness 78yo female with PMHx significant for COPD, atrial fibrillation, CKD, heart failure with preserved EF, type 2 DM. She has been hospitalized three times in the past 6 months for dyspnea. She reports approximately three days of increasing dyspnea, cough, wheezing. No fevers or chills. No CP/palpitations. Mo N/V. She has not appreciated any increasing edema. She was recently restarted on oral metformin for her history of type 2 DM. She was evaluated in the ER and found to be hypoxic. Her d-dimer was elevated, but CT pulmonary angiogram was negative for PE. No pulmonary edema was noted as well. She does have small right-sided pleural effusion. Her lactate was elevated. She was recommended for admission. History Problems: (1) GERD (gastroesophageal reflux disease) Status: Chronic (2) Sleep apnea Status: Chronic (3) CAD (coronary artery disease) Status: Chronic (4) Gout Status: Chronic (5) Hypothyroid Status: Chronic (6) Obesity, morbid, BMI 50 or higher Status: Chronic (7) CKD (chronic kidney disease) stage 3, GFR 30-59 ml/min Status: Chronic (8) HTN (hypertension) Status: Chronic (9) DM2 (diabetes mellitus, type 2) Status: Chronic (10) Acute heart failure with preserved ejection fraction (11) S/P knee replacement Status: Resolved (12) S/P lumbar spinal fusion Status: Resolved Home Meds Active Scripts Furosemide (LASIX) 40 Mg Tablet, 1 TAB PO DAILY PRN for Swelling, #30 TAB Prov:JUAN C SMITH DO 10/22/18 Prednisone 10 Mg Tab (PREDNISONE 10 MG TAB) 10 Mg Tablet, 10 MG PO DIRECTED, #40 TAB Take 4 tab daily x 3 days, then 3 tab daily x 3 days, then 2 tab daily x 3 days, then 1 tab daily Prov:JUAN C SMITH DO 10/22/18 Insulin Glargine 100 Un/Ml Pen (LANTUS SOLOSTAR PEN) 100 Unit/1 Ml Insuln.pen, 45 UNIT SUBQ QHS, #10 ML Prov:JUAN C SMITH DO 10/22/18 Budesonide/Formoterol Fumarate (SYMBICORT 160-4.5 MCG INHALER) 10.2 Gm Inh, 2 EACH INH BIDR for 30 Days, #1 INH 1 Refill Two puffs two times a day. Prov:BALWINDER DIAMOND MD 12/09/16 Reported Medications Fluticasone Prop 50 Mcg Ns (FLONASE 50 MCG NS) 16 Gm [place].susp, 2 SPRAYS NS QDAY PRN for ALLERGY SYMPTOMS, BOT 10/18/18 Dextromethorphan Polistirex (DELSYM) 30 Mg/5 Ml Massiel.er.12h, 30 MG PO QHS 10/18/18 Acetaminophen (TYLENOL) 325 Mg Tablet, 2 TAB PO Q8H PRN for PAIN, TAB 10/18/18 Levothyroxine Sodium (SYNTHROID) 88 Mcg Tablet, 88 MCG PO QDAY 10/18/18 Fenofibrate (TRICOR) 48 Mg Tab, 67 MG PO QDAY, TAB 10/18/18 Lisinopril (LISINOPRIL) 10 Mg Tablet, 10 MG PO QDAY, TAB 10/01/18 Allopurinol (ZYLOPRIM) 300 Mg Tablet, 300 MG PO QDAY, TAB 10/01/18 Rivaroxaban 20 Mg (XARELTO 20 MG) 20 Mg Tablet, 1 TAB PO QDAY 08/16/18 Gabapentin (GABAPENTIN) 600 Mg Tablet, 2 TAB PO TID 08/16/18 Metoprolol Succinate (METOPROLOL SUCCINATE) 100 Mg Tab.er.24h, 1 TAB PO QDAY 08/16/18 Digoxin (DIGOXIN) 125 Mcg Tablet, 125 MCG PO DAILY 07/04/14 Omeprazole (OMEPRAZOLE) 20 Mg Tablet.dr, 20 MG PO QDAY TAKE ONE TABLET BY MOUTH ONCE A DAY 07/03/14 Paroxetine Hcl (PAROXETINE HCL) 40 Mg Tablet, 1 TAB PO DAILY, #30 07/02/14 Atorvastatin Calcium (ATORVASTATIN CALCIUM) 40 Mg Tablet, 1 TAB PO DAILY, #90 07/02/14 Allergies: Coded Allergies: pentazocine (Verified Allergy, Mild, NAUSEA/VOMITING, 10/15/18) Uncoded Allergies: STRAW LOU (Allergy, Severe, RESP PROBLEMS, 01/11/08) TAPE (Allergy, Mild, BLISTERS, 12/05/07) 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, BROTHER OR SISTER, FH: hepatic cirrhosis Hx Smoking: Yes Smoking Status: Former Smoker Exposure to Second Hand Smoke?: No Caffeine Intake: Soda Caffeine/Cups Per Day: 1/day Hx Alcohol Use: No Hx Substance Use Disorder: No Social Drug Use: Never Review of Systems Constitutional: No Fever, No Chills Neurological: Weakness Cardiovascular: No Chest Pain, No Palpitations Respiratory: Shortness of Breath, Cough, Wheezing Gastrointestinal: No Nausea, No Vomiting, No Hematemesis, No Hematochezia, No Melena Genitourinary: No Dysuria Musculoskeletal: Impaired Mobility Exam Vital Signs Vital Signs Date Time Temp Pulse Resp B/P (MAP) Pulse Ox O2 Delivery O2 Flow Rate FiO2 11/16/18 23:45 141/84 (103) 11/16/18 23:40 104 26 97 11/16/18 22:35 12.0 11/16/18 20:40 96.4 Nasal Cannula General Appearance: Alert, Awake Neuro: Other (chronic right foot drop) Eyes: PERRLA ENT: Oropharynx Clear, Other (Poor dentition with only a few broken teeth remaining) Neck: Other (short/thick/earl) Cardiovascular: Other (Irregular with distant tones) Respiratory: Other (Decreased breath sound sthroughout with soft expiratory wheezes and prolonged expiratory phase) Chest: No Tenderness GI: Other (Obese/soft/NT) : No CVA Tenderness Extremities: Warm, Perfused, Edema (trace) Medical Decision Making Data Points Result Diagram: 11/16/18204611/16/182046 Item Value Date Time B-Type Natriuretic Peptide 539 pg/ml H 11/16/182046 Albumin 3.9 g/dl 11/16/182046 Total Protein 7.1 g/dl 11/16/182046 Alkaline Phosphatase 130 U/L H 11/16/182046 Alanine Aminotransferase (ALT/SGPT) 44 U/L 11/16/182046 Aspartate Amino Transf (AST/SGOT) 75 U/L H 11/16/182046 Total Bilirubin 1.4 mg/dl H 11/16/182046 Lactate 5.8 mmol/L *H 11/16/182046 Calcium Level 9.3 mg/dl 11/16/182046 Troponin I < 0.012 ng/ml 11/16/182046 Digoxin Level < 0.4 ng/ml 11/16/182046 D-Dimer Quantitative (PE/DVT) 1.25 ug/ml H 11/16/182046 EKG / Imaging EKG Interpretation PATIENT NAME: FLOWER OLIVA : [id number] MR: [id number] V: [id number] EXAM DATE: [id number] ORDERING PHYSICIAN: FORREST MUNOZ TECHNOLOGIST: AZAM Test Reason : DYSPNEA Blood Pressure : / mmHG Vent. Rate : 118 BPM Atrial Rate : 125 BPM P-R Int : 000 ms QRS Dur : 080 ms QT Int : 298 ms P-R-T Axes : 000 024 129 degrees QTc Int : 417 ms Atrial fibrillation Abnormal ECG When compared with ECG of 15-OCT-2018 21:36, Nonspecific T wave abnormality now evident in Inferior leads Imaging PATIENT NAME: Flower Oliva : 1940 MR: [id number] V: [id number] EXAM DATE: [id number] ORDERING PHYSICIAN: FORREST MUNOZ TECHNOLOGIST[place] [facility] [place] : 1940 Visit/Account:[id number] Date of Sevice: 11/16/2018 EXAMINATION: CTA of the chest with IV contrast HISTORY: Shortness of breath TECHNIQUE: Pulmonary embolus protocol - Thin axial CT images of the chest were obtained with IV contrast during maximal pulmonary arterial opacification. Rec onstruction of the source data includes multiplanar 2D coronal and sagittal reconstructed images, and 3D coronal and sagittal MIP images. [employer] images have been stored on PACS. One of the following dose optimization techniques was utilized in the performance of this exam: Automated exposure control; adjustment of the mA and/or kV according to the patient's size; or use of an iterative re construction technique. Specific details can be referenced in the facility's radiology CT exam operational policy. Contrast: 75 mL of IV Isovue-370. COMPARISON: 09/29/2018. FINDINGS: Pulmonary arteries: The pulmonary arteries are well opacified, without suspicious filling defect. Heart, aorta, and great vessels: Normal caliber thoracic aorta without aneurysm or dissection. Vascular calcifications including coronary artery calcifications. Normal heart size. No pericardial effusion. Lungs and pleura: Moderate right pleural effusion has increased in volume with adjacent atelectasis in the lower lobe. Stable small left pleural effusion with mild left basilar atelectasis. No new suspicious focal consolidation. The central airways are patent. No pneumothorax. Mediastinum and aria: Negative. Visualized upper abdomen: Unremarkable. Chest wall: Negative. Bones: No acute osseous findings in the chest. Multilevel degenerative changes along the thoracic spine. Partially visualized plate and screw fixation along the cervical spine. IMPRESSION: 1. No evidence of pulmonary embolism. 2. Moderate right pleural effusion has increased in volume with a stable small left pleural effusion. Adjacent atelectasis in the lung bases. 3. Coronary artery calcifications Report Dictated By: Tigre Jordan MD at 11/16/2018 10:38 PM Report E-Signed By: Tigre Jordan MD at 11/16/2018 10:45 PM [id number] Assessment and Plan Problems: (1) Acute exacerbation of chronic obstructive pulmonary disease (COPD) Status: Acute Assessment & Plan: It appears she has another acute exacerbation of her under lying COPD. Will admit for respiratory treatments, steroids, supplemental oxygen. It does not appear she has an acute infection at this time. (2) Heart failure with preserved ejection fraction Status: Chronic Assessment & Plan: She has a small right pleural effusion and may have a mild exacerbation, but it appears to be more respiratory in nature. Will continue her usual regimen with KIERSTEN inhibitor and metoprolol. Will hold her Lasix for now due to the lactic acidosis, but will need to resume it shortly. (3) DM2 (diabetes mellitus, type 2) Status: Chronic Assessment & Plan: She was restarted on metformin for her DM. As her lactate is elevated once again, will need to stop the metformin completely. She will continue on her Lantus. Will monitor her glucoses and use SSI as needed. (4) CKD (chronic kidney disease) stage 3, GFR 30-59 ml/min Status: Chronic Assessment & Plan: It appears her baseline creatinine is 1.1-1.2. She is currently 1.0. Monitor labs. (5) Hypothyroid Status: Chronic Assessment & Plan: Continue replacement therapy with levothyroxine 88mcg PO daily. (6) HTN (hypertension) Status: Chronic Assessment & Plan: She was initially hypertensive on presentation to the ER, but has improved. Will continue her regimen and monitor BPs. (7) Lactic acidosis Status: Acute Assessment & Plan: May be due to her hypoxia, but could also be related to the restart of her metformin. I believe as she as recurrent elevation of her lactate while on the metformin, it will need to be stopped completely. (8) Obesity, morbid, BMI 50 or higher Status: Chronic Copies to: JUAN C CARRANZA MD ; Venous Thromboembolism Antithrombotics Is Pt On Any Antithrombotics?: Yes Exam Sepsis Risk: No Definite Risk BALWINDER DIAMOND MD Nov 17, 2018 00:42
[2018-11-17] MEDS: INSULIN HUM LISPRO 100 UN/ML 3 ML VIAL SUBQ PRN ×5 (01:20→21:03)
[2018-11-17 01:39] VITALS: BP 159/95
[2018-11-17] MEDS: ALBUTEROL/IPRATROPIUM 3 ML NEB NEB SCH ×4 (05:24→18:23)
[2018-11-17 05:44] LABS: PLATELET COUNT, AUTOMATED 272 K/uL (150-450)
[2018-11-17] MEDS: PANTOPRAZOLE SOD 40 MG TABEC PO SCH (06:13)
[2018-11-17] MEDS: LEVOTHYROXINE SOD 0.088 MG TAB PO SCH (06:13)
[2018-11-17] MEDS: methylPREDNIS SUCC 125 MG/2ML IVP SCH ×2 (06:13→08:33)
[2018-11-17 07:32] VITALS: BP 171/112
[2018-11-17] MEDS: BUDESO/FORMOT 160/4.5 MCG 6 GM INH SCH ×2 (08:14→18:22)
[2018-11-17] MEDS: METOPROLOL SUCC XL 50 MG TABCR 50 MG TAB.ER.24H PO SCH (08:27)
[2018-11-17] MEDS: ALLOPURINOL 300 MG TAB PO SCH (08:28)
[2018-11-17] MEDS: GABAPENTIN 300 MG CAP PO SCH ×3 (08:28→21:04)
[2018-11-17] MEDS: PARoxetine HCL 20 MG TAB PO SCH (08:30)
[2018-11-17] MEDS: DIGOXIN 0.125 MG TAB PO SCH (08:30)
[2018-11-17] MEDS: ATORVASTATIN 40 MG TAB PO SCH (08:30)
[2018-11-17] MEDS: LISINOPRIL 10 MG TAB PO SCH (08:30)
--- NOTE | 2018-11-17 10:46 | EKG ---
FACILITY: [facility] - [place] PATIENT NAME: CIELO OLIVA : [id number] MR: [id number] V: [id number] EXAM DATE: ORDERING PHYSICIAN: OMID BARFIELD TECHNOLOGIST: HOWIE Tobias Reason : CP Blood Pressure : / mmHG Vent. Rate : 087 BPM Atrial Rate : 208 BPM P-R Int : 000 ms QRS Dur : 084 ms QT Int : 390 ms P-R-T Axes : 000 006 122 degrees QTc Int : 469 ms Atrial fibrillation When compared with ECG of 16-NOV-2018 20:48, No significant change was found Confirmed by Omid Castro ([id number]) on 11/17/2018 8:29:29 PM Referred By: MAGDALENE Confirmed By:Omid Barfield
[2018-11-17] MEDS: predniSONE 20 MG TAB PO SCH (11:18)
[2018-11-17 11:53] VITALS: BP 147/89
[2018-11-17] MEDS ORDERED: methylPREDNIS SUCC 125 MG/2ML IVP SCH (14:00)
[2018-11-17 15:32] VITALS: BP 136/76
[2018-11-17] MEDS ORDERED: RIVAROXABAN 10 MG TAB PO SCH (17:00)
[2018-11-17 19:14] VITALS: BP 109/64
[2018-11-17] MEDS ORDERED: INSULIN GLARGINE 100 U/ML 3 ML PEN SUBQ SCH (21:00)
[2018-11-18 02:42] VITALS: BP 122/72
[2018-11-18] MEDS: ALBUTEROL/IPRATROPIUM 3 ML NEB NEB SCH ×3 (05:38→13:13)
[2018-11-18] MEDS: BUDESO/FORMOT 160/4.5 MCG 6 GM INH SCH (05:38)
[2018-11-18] MEDS: PANTOPRAZOLE SOD 40 MG TABEC PO SCH (05:51)
[2018-11-18] MEDS: LEVOTHYROXINE SOD 0.088 MG TAB PO SCH (05:51)
[2018-11-18] MEDS: INSULIN HUM LISPRO 100 UN/ML 3 ML VIAL SUBQ PRN ×3 (08:12→11:36)
[2018-11-18 08:27] VITALS: BP 152/119
[2018-11-18 08:34] VITALS: BP 136/73
[2018-11-18] MEDS: LISINOPRIL 10 MG TAB PO SCH (09:00)
[2018-11-18] MEDS: METOPROLOL SUCC XL 50 MG TABCR 50 MG TAB.ER.24H PO SCH (09:30)
[2018-11-18] MEDS: predniSONE 20 MG TAB PO SCH (09:31)
[2018-11-18] MEDS: ALLOPURINOL 300 MG TAB PO SCH (09:31)
[2018-11-18] MEDS: PARoxetine HCL 20 MG TAB PO SCH (09:31)
[2018-11-18] MEDS: DIGOXIN 0.125 MG TAB PO SCH (09:31)
[2018-11-18] MEDS: ATORVASTATIN 40 MG TAB PO SCH (09:31)
[2018-11-18] MEDS: GABAPENTIN 300 MG CAP PO SCH ×2 (09:33→13:59)
[2018-11-18] MEDS ORDERED: [UNRECOGNIZED DRUG - OTHER] TP SCH (10:55)
[2018-11-18 11:20] VITALS: BP 154/93
[2018-11-18] MEDS ORDERED: PRED-1 PO (14:32)
[2018-11-18] MEDS ORDERED: SPIR25TA80 PO (15:14)
[2018-11-18] MEDS ORDERED: FURO40TA35 PO (15:14)
[2018-11-18] MEDS ORDERED: LISI-362 PO (15:24)
[2018-11-18] MEDS ORDERED: INSU300I SC (15:34)
--- NOTE | 2018-11-18 15:37 | Hospitalist Depart ---
Discharge Summary Reason for Hosp/Final Diag: (1) Acute exacerbation of chronic obstructive pulmonary disease (COPD) Status: Acute Hospital Course & Plan: She presented with severe onset of SOB the day of admission. It appears she has another acute exacerbation of her underlying COPD. She was started on IV steroids and then continued on her usual nebs/inhalers. She is on her baseline O2 requirement. She reports to be at her baseline VIDAL status. She will go home on a prednisone taper down to 5mg a day. She will then followup with her PCP in about 10 days. Also, doing a course of daily diuresis. See below. (2) Heart failure with preserved ejection fraction Status: Chronic Hospital Course & Plan: She has a moderate right pleural effusion that has increased in volume by CT and may have a mild exacerbation (BNP elevated from baseline), but it appears to be more respiratory in nature. Will have her try a week of a week of spironolactone/furosemide. BMP/BNP/Lactate on 11/23 (3) DM2 (diabetes mellitus, type 2) Status: Chronic Hospital Course & Plan: She was potentially restarted on metformin for her DM. Because her lactate is elevated, will need to stop the metformin completely. Because of a h/o lactic acidosis with hospitalization, will not have her restart it. Continue Toujeo at 160 units daily. Glucose is elevated, but should improve with the steroid taper. (4) CKD (chronic kidney disease) stage 3, GFR 30-59 ml/min Status: Chronic Hospital Course & Plan: It appears her baseline creatinine is 1.1-1.2. She is currently 1.0. Monitor labs. (5) HTN (hypertension) Status: Chronic Hospital Course & Plan: Chronically on Toprol and Lisinopril. She will be tried on a week of Lasix/Spironolactone. During that time she is to hold Lisinopril. (6) Lactic acidosis Status: Acute Hospital Course & Plan: May be due to her hypoxia, but possibly exacerbated by metformin. Because of recurrent elevation of her lactate, she should not be on metformin. See above. (7) Atrial fibrillation Status: Chronic Hospital Course & Plan: Rate controlled on Digoxin and Toprol. Stroke prophylaxis with Xarelto. (8) Obesity, morbid, BMI 50 or higher Status: Chronic (9) Hypothyroid Status: Chronic Hospital Course & Plan: Continue replacement therapy with levothyroxine 88mcg PO daily. Departure Weight (Pounds): 270 Weight (Ounces): 6.0 Result Diagram: 11/17/1852411/17/18524 Item Value Date Time Lactate 5.8 mmol/L *H 11/16/182046 Blood Urea Nitrogen 19 mg/dl H 11/16/182046 Creatinine 1.00 mg/dl 11/16/182046 Sodium Level 140 mmol/L 11/16/182046 Potassium Level 5.1 mmol/L H 11/16/182046 Chloride Level 99 mmol/L 11/16/182046 Carbon Dioxide Level 28 mmol/L 11/16/182046 Total Bilirubin 1.4 mg/dl H 11/16/182046 Aspartate Amino Transf (AST/SGOT) 75 U/L H 11/16/182046 Alanine Aminotransferase (ALT/SGPT) 44 U/L 11/16/182046 Alkaline Phosphatase 130 U/L H 11/16/182046 Troponin I < 0.012 ng/ml 11/16/182046 B-Type Natriuretic Peptide 539 pg/ml H 11/16/182046 Troponin I < 0.012 ng/ml 11/17/18524 Troponin I < 0.012 ng/ml 11/17/18 1024 Blood Urea Nitrogen 21 mg/dl H 11/17/18524 Creatinine 0.90 mg/dl 11/17/18524 Digoxin Level < 0.4 ng/ml 11/16/182046 D-Dimer Quantitative (PE/DVT) 1.25 ug/ml H 11/16/182046 Neutrophils (%) (Auto) 86.2 % H 11/16/182046 Neutrophils (%) (Auto) 93.6 % H 11/17/18524 Lymphocytes (%) (Auto) 11.9 % L 11/16/182046 Lymphocytes (%) (Auto) 5.2 % L 11/17/18524 Monocytes (%) (Auto) 1.4 % L 11/16/182046 Monocytes (%) (Auto) 1.0 % L 11/17/18524 Eosinophils (%) (Auto) 0.1 % L 11/16/182046 Eosinophils (%) (Auto) 0.1 % L 11/17/18 0525 Basophils (%) (Auto) 0.4 % 11/16/18 2047 Basophils (%) (Auto) 0.1 % L 11/17/18 0525 Blood culture from 11/16/18 x2 with no growth to date. Imaging 11/16/18 Chest CTA - 1. No evidence of pulmonary embolism. 2. Moderate right pleural effusion has increased in volume with a stable small left pleural effusion. Adjacent atelectasis in the lung bases. 3. Coronary artery calcifications 11/16/18 CXR - Moderate cardiomegaly. Mild congestive heart failure. EKG Vent. Rate : 118 BPM Atrial Rate : 125 BPM P-R Int : 000 ms QRS Dur : 080 ms QT Int : 298 ms P-R-T Axes : 000 024 129 degrees QTc Int : 417 ms Atrial fibrillation Abnormal ECG Diffuse artifact - repeat EKG if needed Confirmed by BALWINDER DIAMOND ([id number]) on 11/17/2018 12:56:18 AM Condition: Improved Discharge: Home Discharge Instructions Home Meds Active Scripts Lisinopril (LISINOPRIL) 10 Mg Tablet, 10 MG PO QDAY for 30 Days, TAB Don't take while on Furosemide and Spironolactone. Restart when done with them Prov:SOURAV ROLLINS MD 11/18/18 Spironolactone (SPIRONOLACTONE) 25 Mg Tablet, 25 MG PO DAILY, #7 TAB Prov:SOURAV ROLLINS MD 11/18/18 Furosemide (LASIX) 40 Mg Tablet, 1 TAB PO DAILY, #7 TAB Prov:SOURAV ROLLINS MD 11/18/18 Prednisone 10 Mg Tab (PREDNISONE 10 MG TAB) 10 Mg Tablet, 10 MG PO DIRECTED, #40 TAB Take 4 qday x 3d, then 3 qday x 3d, then 2 qday x3d, then 1 qday x3d, then 1/2 tab daily until you see your PCP Prov:SOURAV ROLLINS MD 11/18/18 Insulin Glargine 100 Un/Ml Pen (LANTUS SOLOSTAR PEN) 100 Unit/1 Ml Insuln.pen, 45 UNIT SUBQ QHS, #10 ML Prov:JUAN C SMITH DO 10/22/18 Budesonide/Formoterol Fumarate (SYMBICORT 160-4.5 MCG INHALER) 10.2 Gm Inh, 2 EACH INH BIDR for 30 Days, #1 INH 1 Refill Two puffs two times a day. Prov:BALWINDER DIAMOND MD 12/09/16 Reported Medications Insulin Glargine,Hum.rec.anlog ([place] Solostar) 300 Unit/1 Ml Insuln.pen, 160 UNITS SC QAM, 11/18/18 Fluticasone Prop 50 Mcg Ns (FLONASE 50 MCG NS) 16 Gm [place].susp, 2 SPRAYS NS QDAY PRN for ALLERGY SYMPTOMS, BOT 10/18/18 Acetaminophen (TYLENOL) 325 Mg Tablet, 2 TAB PO Q8H PRN for PAIN, TAB 10/18/18 Levothyroxine Sodium (SYNTHROID) 88 Mcg Tablet, 88 MCG PO QDAY 10/18/18 Fenofibrate (TRICOR) 48 Mg Tab, 67 MG PO QDAY, TAB 10/18/18 Allopurinol (ZYLOPRIM) 300 Mg Tablet, 300 MG PO QDAY, TAB 10/01/18 Rivaroxaban 20 Mg (XARELTO 20 MG) 20 Mg Tablet, 1 TAB PO QDAY 08/16/18 Gabapentin (GABAPENTIN) 600 Mg Tablet, 2 TAB PO TID 08/16/18 Metoprolol Succinate (METOPROLOL SUCCINATE) 100 Mg Tab.er.24h, 1 TAB PO QDAY 08/16/18 Digoxin (DIGOXIN) 125 Mcg Tablet, 125 MCG PO DAILY 07/04/14 Omeprazole (OMEPRAZOLE) 20 Mg Tablet.dr, 20 MG PO QDAY TAKE ONE TABLET BY MOUTH ONCE A DAY 07/03/14 Paroxetine Hcl (PAROXETINE HCL) 40 Mg Tablet, 1 TAB PO DAILY, #30 07/02/14 Atorvastatin Calcium (ATORVASTATIN CALCIUM) 40 Mg Tablet, 1 TAB PO DAILY, #90 07/02/14 Discontinued Reported Medications Dextromethorphan Polistirex (DELSYM) 30 Mg/5 Ml [place].er.12h, 30 MG PO QHS 10/18/18 Diet: Diabetic, Fluid Restricted Activity: As Tolerated Special Instructions: Do not restart Metformin Restart lisinopril when done with Furosemide and Spironolactone Follow up with your PCP as scheduled in 1-2 weeks Check your weight daily and call your PCP for an increase of 5lbs from baseline. Fluid restrict to 2 quarts of total fluids daily. BMP/BNP/lactate on 11/23 Copies to: JUAN C CARRANZA MD ; Venous Thromboembolism Antithrombotics Is Pt On Any Antithrombotics?: Yes SOURAV ROLLINS MD Nov 18, 2018 15:37
== END 2018-11-18 16:06 | disposition home or self-care (01) | DRG 191 ==
LOC: ER 21:07 → MED 23:46
PROVIDERS: ADMIT Internal Medicine; ATTEND Internal Medicine
DX: J44.1 Chronic obstructive pulmonary disease with (acute) exacerbation (principal); I13.0 Hypertensive heart and chronic kidney disease with heart failure and stage 1 through stage 4 chronic kidney disease, or unspecified chronic kidney disease; Z68.43 Body mass index [BMI] 50.0-59.9, adult; E87.2 Acidosis; I48.2 Chronic atrial fibrillation; I50.9 Heart failure, unspecified; K21.9 Gastro-esophageal reflux disease without esophagitis; G47.30 Sleep apnea, unspecified; I25.10 Atherosclerotic heart disease of native coronary artery without angina pectoris; M10.9 Gout, unspecified; E03.9 Hypothyroidism, unspecified; E66.01 Morbid (severe) obesity due to excess calories; E11.22 Type 2 diabetes mellitus with diabetic chronic kidney disease; N18.3 Chronic kidney disease, stage 3 (moderate); R09.02 Hypoxemia; Z88.8 Allergy status to other drugs, medicaments and biological substances; Z79.4 Long term (current) use of insulin; Z79.51 Long term (current) use of inhaled steroids; Z79.899 Other long term (current) drug therapy; Z96.659 Presence of unspecified artificial knee joint; Z87.891 Personal history of nicotine dependence
CPT/HCPCS: 36415; 36416; 71045; 71275; 80162; 82040; 82247; 82310; 82374; 82435; 82565; 82947; 82948; 83605; 83880; 84075; 84132; 84155; 84295; 84443; 84450; 84460; 84484; 84520; 85025; 85379; 87040; 93005; 94640; 94660; 96374; 99284; J1815; J2270; J2930; J7030; J7050; J7512; J7613; Q9967

== ENCOUNTER 2019-01-06 13:19 | Emergency (ER) | payer MEDICARE ==
[2019-01-06] MEDS ORDERED: NS(*) 0.9% 1000 ML BAG 1,000 ML IV ONE (13:25)
--- NOTE | 2019-01-06 13:25 | ER Report ---
History and Physical Time Seen By MD: 13:21 HPI/ROS CHIEF COMPLAINT: Code blue HISTORY OF PRESENT ILLNESS: Patient is a 79-year-old female with history of end- stage COPD, pulmonary hypertension among other significant comorbidities. Patient reportedly became unresponsive, found by family. EMS brought the patient in initially with a intact pulses after 3 rounds of epinephrine. Patient became pulseless shortly after arrival prompting immediate use of CPR via Wilber device. Patient was intubated by EMS, IV fluids were initiated, repeat epinephrine doses were given. Please see nursing notes for further details regarding medication administration and timing. REVIEW OF SYSTEMS: Unable to obtain Physical Exam General Appearance: Intubated, unresponsive, pupils fixed and dilated Eyes: Pupils fixed and dilated 3 mm, nonreactive ENT, Mouth: Endotracheal tube in place Respiratory: Bilateral breath sounds auscultated Cardiovascular: Initially rapid and irregular Gastrointestinal: Soft, no rebound or guarding Neurological: Unresponsive, pupils fixed and dilated Skin: Cool and pale in the extremities Musculoskeletal: No acute abnormalities or signs of trauma DIFFERENTIAL DIAGNOSIS: After history and physical exam differential diagnosis was considered for myocardial infarction, cardiac tamponade, anemia, electrolyte abnormality, respiratory arrest Medical Decision Making Data Points Result Diagram: 01/06/19 1319 01/06/19 1319 Laboratory Hematology Test 01/06/19 13:19 White Blood Count 19.6 k/uL (4.5-11.0) H Red Blood Count 4.12 M/uL (4.17-5.56) L Hemoglobin 12.3 g/dL (12.0-16.0) Hematocrit 43.2 % (34.0-47.0) Mean Corpuscular Volume 105.0 fL (80.0-96.0) H Mean Corpuscular Hemoglobin 29.8 pg (26.0-33.0) Mean Corpuscular Hemoglobin Concent 28.3 g/dL (32.0-36.0) L Red Cell Distribution Width 18.1 % (11.5-14.5) H Platelet Count 255 K/uL (150-450) Mean Platelet Volume 8.7 fL (7.2-11.1) Neutrophils (%) (Auto) % (39.4-72.5) Lymphocytes (%) (Auto) % (17.6-49.6) Monocytes (%) (Auto) % (4.1-12.4) Eosinophils (%) (Auto) % (0.4-6.7) Basophils (%) (Auto) % (0.3-1.4) Nucleated RBC Relative Count (auto) /100WBC Neutrophils # (Auto) K/uL (2.0-7.4) Lymphocytes # (Auto) K/uL (1.3-3.6) Monocytes # (Auto) K/uL (0.3-1.0) Eosinophils # (Auto) K/uL (0.0-0.5) Basophils # (Auto) K/uL (0.0-0.1) Nucleated RBC Absolute Count (auto) K/uL Neutrophils % (Manual) 59 % (39.4-72.5) Band Neutrophils % 12 % Lymphocytes % (Manual) 15 % (17.6-49.6) L Monocytes % (Manual) 3 % (4.1-12.4) L Eosinophils % (Manual) 0 % (0.4-6.7) L Basophils % (Manual) 0 % (0.3-1.4) L Myelocytes % 11 % Nucleated Red Blood Cells 1 Anisocytosis 1+ Macrocytosis 1+ Chemistry Test 01/06/19 13:19 Sodium Level 140 mmol/L (137-145) Potassium Level 5.9 mmol/L (3.5-5.0) Chloride Level 99 mmol/L (98-107) Carbon Dioxide Level 14 mmol/L (22-31) Blood Urea Nitrogen 21 mg/dl (7-18) Creatinine 3.00 mg/dl (0.52-1.04) Glomerular Filtration Rate Calc 15.1 Random Glucose 396 mg/dl (75-110) Calcium Level 8.5 mg/dl (8.4-10.2) Total Bilirubin 2.6 mg/dl (0.2-1.3) Aspartate Amino Transf (AST/SGOT) 6759 U/L (0-35) Alanine Aminotransferase (ALT/SGPT) 4026 U/L (0-56) Alkaline Phosphatase 116 U/L (0-126) Ammonia 124 UMOL/L (9-33) Troponin I 0.673 ng/ml Total Protein 6.3 g/dl (6.3-8.2) Albumin 3.4 g/dl (3.5-5.0) Thyroid Stimulating Hormone (TSH) 9.05 uIU/ml (0.46-4.68) Toxicology Test 01/06/19 13:19 Serum Alcohol 11 mg/dl EKG/Imaging EKG Interpretation 12 lead EKG: Normal sinus rhythm, ventricular rate 73, QTC 506 Rhythm: normal sinus rhythm [place]: normal QRS: normal ST segments: normal Imaging Please see radiology report ED Course/Re-evaluation ED Course Patient is a 79-year-old female with history of end-stage COPD, pulmonary hypertension among other significant comorbidities. Patient reportedly became unresponsive, found by family. EMS brought the patient in initially with a intact pulses after 3 rounds of epinephrine. Patient became pulseless shortly after arrival prompting immediate use of CPR via Wilber device. Patient was intubated by EMS, IV fluids were initiated, repeat epinephrine doses were given. Please see nursing notes for further details regarding medication administration and timing. Patient became pulseless subsequent episodes but pulse return after subsequent resuscitation efforts, epinephrine. Patient was then started on no repinephrine infusion due to hypotension. I updated the patient's and power of environmental attorney regarding resuscitation efforts and the decision was made to withdraw care as the prognosis and outcome were grim especially with her significant comorbidities. Patient was extubated discontinued on her pressor infusion. Time of expiration was 1522 Decision to Disposition Date: Jan 06, 2019 Decision to Disposition Time: 15:22 Depart Departure Impression: Primary Impression: Cardiorespiratory arrest Additional Impressions: End stage COPD Pulmonary hypertension Condition: Disposition: Problem Qualifiers LI DIALLO DO Jan 06, 2019 13:25
[2019-01-06 13:35] LABS: PLATELET COUNT, AUTOMATED 255 K/uL (150-450)
[2019-01-06 15:10] VITALS: BP 91/68
--- NOTE | 2019-01-07 08:27 | EKG ---
FACILITY: [facility] - [place] PATIENT NAME: CIELO OLIVA : [id number] MR: [id number] V: [id number] EXAM DATE: ORDERING PHYSICIAN: LI DIALLO TECHNOLOGIST: HOWIE Tobias Reason : CODE BLUE Blood Pressure : / mmHG Vent. Rate : 180 BPM Atrial Rate : 180 BPM P-R Int : 000 ms QRS Dur : 142 ms QT Int : 262 ms P-R-T Axes : 000 031 156 degrees QTc Int : 453 ms Sinus rhythm with 1st degree AV block Right bundle branch block Abnormal ECG No previous ECGs available Confirmed by JUAN C SMITH ([id number]) on 01/07/2019 9:59:39 AM Referred By: YOEL Confirmed By:JUAN C SMITH
--- NOTE | 2019-01-11 14:34 | RADIOLOGY IMAGING REPORT ---
FACILITY: [facility] [place] PATIENT NAME: Flower Burk : 1940 MR: [id number] V: [id number] EXAM DATE: ORDERING PHYSICIAN: LI DIALLO TECHNOLOGIST: Location: [facility] Patient: Flower Burk : 1940 Visit/Account:[id number] Date of Sevice: 01/06/2019 Study: CHEST SINGLE AP Indication: Status post intubation Comparison study: None available Findings: Single portable chest done in supine position demonstrates the presence of an endotracheal tube with the tip 3 cm above the level of the eleazar. There is no evidence of acute infiltrate. There is no evidence of pleural effusion or pneumothorax. The patient is on a CPR compared which partially obscures the chest. IMPRESSION: Endotracheal tube present with tip 3 cm above the level of the eleazar. Report Dictated By: Constantine Reardon at 01/06/2019 1:44 PM Report E-Signed By: Constantine Reardon at 01/06/2019 1:45 PM WSN:[id number]
== END 2019-01-06 15:45 | disposition expired ==
LOC: MERGE 13:43 → ER 13:43
DX: I46.9 Cardiac arrest, cause unspecified (principal); J44.9 Chronic obstructive pulmonary disease, unspecified; J45.998 Other asthma; I27.20 Pulmonary hypertension, unspecified
CPT/HCPCS: 71045; 82140; 82375; 82803; 84443; 84484; 85025; 92950; 93005; 99285; C1758; G0480; J0171; J7060; 80320; 82040; 82247; 82310; 82374; 82435; 82565; 82947; 84075; 84132; 84155; 84295; 84450; 84460; 84520; 94002; 99284

== ENCOUNTER → 2019-01-06 | Outpatient (CLI) | payer MEDICARE ==
[2018-09-30 09:12] VITALS: BMI 47.5
[~2019-01-06] MED LIST changes: +INSU300I SC; +SPIR25TA80 PO
== END ==
LOC: AMB 12:46
PROVIDERS: ATTEND Nurse Practitioner
DX: I46.9 Cardiac arrest, cause unspecified (principal)
CPT/HCPCS: A0425; A0433